=== PATIENT | female | born 1965 | race Caucasian/White ===

== ENCOUNTER 2021-03-20 07:52 | Outpatient (REF) | payer BC, SELFPAY ==
[2021-03-20 08:17] LABS: MANUAL DIFF FLAG NO
[2021-03-20 08:24] LABS: Basophils Percent Auto 0.7 % (0-2); Hematocrit 38.5 % (37-47); Imm Gran Abs Auto 0.01 X10*3/uL (0.00-0.03); Imm Gran Pct Auto 0.3 % (0.0-0.4); Lymphocytes Percent Auto 33.9 % (20-40); Mean Corpuscular HGB Conc 33.8 g/dl (31.0-35.0); Mean Corpuscular Hemoglobin 31.3 pg (27.0-33.0); Mean Corpuscular Volume 92.8 fL (80-98); Mean Platelet Volume 12.4 fL (9.4-12.3); Monocytes Absolute Auto 0.3 X10*3/uL (0.1-1.2); Monocytes Percent Auto 11.4 % (2-11); Neutrophils Absolute Auto 1.6 X10*3/uL (2.0-8.3); Neutrophils Percent Auto 52.7 % (45-73); Platelet Count 105 X10*3/uL (160-400); Red Blood Count 4.15 X10*6/uL (4.20-5.50); Red Cell Distribution Width 11.8 % (11.0-16.0)
[2021-03-20 08:44] LABS: Alanine Aminotransferase 32 U/L (0-31); Albumin Level 4.3 g/dL (3.5-5.0); Alkaline Phosphatase 86 U/L (39-117); Anion Gap 11 (12-20); Aspartate Amino Transferase 24 U/L (5-31); Bilirubin Total 0.9 mg/dL (0.0-1.0); Blood Urea Nitrogen 20 mg/dL (9-16); Calcium 8.6 mg/dL (8.4-10.2); Carbon Dioxide 31 mmol/L (22-29); Chloride 106 mmol/L (96-108); Cholesterol 158 mg/dL; Estimated Glomerular Filt Rate > 60; Glucose Fasting 102 mg/dL (60-99); HDL Cholesterol 50 mg/dL; LDL Cholesterol Calculated 94 mg/dl; Potassium 4.5 mmol/L (3.3-5.1); Sodium 143 mmol/L (135-145); Total Protein 6.5 g/dL (6.5-8.0); Triglycerides 71 mg/dL
[2021-03-20 09:04] LABS: TSH reflex Free T4 1.38 uIU/mL (0.32-4.0); Vitamin D 25-OH Total 40.3 ng/mL (>30)
== END 2021-03-20 07:53 | disposition home or self-care (01) ==
LOC: HO.LAB 07:52
PROVIDERS: PCP Internal Medicine; Visit Provider Internal Medicine
DX: E78.00 Pure hypercholesterolemia, unspecified (principal); K21.9 Gastro-esophageal reflux disease without esophagitis; K31.84 Gastroparesis; E55.9 Vitamin D deficiency, unspecified
CPT/HCPCS: 36415; 80053; 80061; 82306; 84443; 85025

== ENCOUNTER 2021-06-04 07:19 | Outpatient (REF) | payer BC, SELFPAY ==
--- NOTE | ~2021-06-04 | XR_ITS ---
EXAMINATION: XR CHEST CLINICAL INFORMATION: Cough COMPARISON: Previous chest x-ray most recent February 2020 and chest CTA July 2019 TECHNIQUE: 2 views of the chest were obtained. FINDINGS: The heart does not appear enlarged. There is abnormal contour to the aortic arch. This is similar to previous exams. Hilar and mediastinal contours are otherwise unremarkable. The lungs are clear. There is no pleural effusion or pneumothorax. Bony structures are unremarkable. XR/XR chest 2V IMPRESSION: No evidence for acute disease in the chest. Abnormal contour of the aortic arch similar to previous exams.
== END 2021-06-04 07:20 | disposition home or self-care (01) ==
LOC: HO.XRAY 07:19
PROVIDERS: Visit Provider Internal Medicine
DX: M77.12 Lateral epicondylitis, left elbow (principal); R05 Cough
CPT/HCPCS: 20550; 71046; J1100

== ENCOUNTER → 2021-10-22 14:45 | Outpatient (BNVA) | payer BC, SELFPAY | PROVIDERS: PCP Internal Medicine; Visit Provider Orthopaedic Surgery ==

== ENCOUNTER → 2021-11-12 14:55 | Outpatient (BNVA) | payer BC, SELFPAY | PROVIDERS: PCP Internal Medicine; Visit Provider Orthopaedic Surgery | DX: M79.632 Pain in left forearm (principal); M77.12 Lateral epicondylitis, left elbow; M25.522 Pain in left elbow | CPT/HCPCS: 20551; J1100 ==

== ENCOUNTER 2021-12-19 06:42 | Outpatient (REF) | payer BC, OTHER, SELFPAY ==
--- NOTE | ~2021-12-19 | XR_ITS ---
EXAMINATION: XR ABDOMEN KUB CLINICAL INDICATION: Abdominal pain COMPARISON: Renal ultrasound 04/29/2017 TECHNIQUE: AP view of the abdomen. FINDINGS: Moderate stool burden. No bowel obstruction. Cluster of calcifications project over the region of the right kidney measuring up to 1 cm. Mild scoliotic curvature in the spine. XR/XR KUB IMPRESSION: Moderate stool burden. Clustered calcifications project over the region of the right kidney, these could represent renal calculi versus bowel contents.
[2021-12-19 08:28] LABS: Alanine Aminotransferase 20 U/L (0-31); Albumin Level 4.5 g/dL (3.5-5.0); Alkaline Phosphatase 79 U/L (39-117); Anion Gap 12 (12-20); Aspartate Amino Transferase 25 U/L (5-31); Bilirubin Total 1.3 mg/dL (0.0-1.0); Blood Urea Nitrogen 26 mg/dL (9-16); Calcium 9.5 mg/dL (8.4-10.2); Carbon Dioxide 32 mmol/L (22-29); Chloride 103 mmol/L (96-108); Cholesterol 169 mg/dL; Estimated Glomerular Filt Rate > 60; Glucose Fasting 89 mg/dL (60-99); HDL Cholesterol 44 mg/dL; LDL Cholesterol Calculated 103 mg/dl; Potassium 4.7 mmol/L (3.3-5.1); Sodium 142 mmol/L (135-145); Total Protein 7.2 g/dL (6.5-8.0); Triglycerides 110 mg/dL
== END 2021-12-19 06:43 | disposition home or self-care (01) ==
LOC: HO.LAB 06:42
PROVIDERS: PCP Internal Medicine; Visit Provider Internal Medicine
DX: R10.9 Unspecified abdominal pain (principal); E78.00 Pure hypercholesterolemia, unspecified
CPT/HCPCS: 36415; 74018; 80053; 80061

== ENCOUNTER 2022-05-09 07:12 | Outpatient (REF) | payer BC, SELFPAY ==
[2022-05-09 08:00] LABS: Alanine Aminotransferase 24 U/L (0-31); Albumin Level 4.5 g/dL (3.5-5.0); Alkaline Phosphatase 63 U/L (39-117); Anion Gap 10 (12-20); Aspartate Amino Transferase 27 U/L (5-31); Bilirubin Total 1.5 mg/dL (0.0-1.0); Blood Urea Nitrogen 25 mg/dL (9-16); Calcium 9.2 mg/dL (8.4-10.2); Carbon Dioxide 30 mmol/L (22-29); Chloride 105 mmol/L (96-108); Cholesterol 175 mg/dL; Estimated Glomerular Filt Rate > 60; Glucose Fasting 94 mg/dL (60-99); HDL Cholesterol 57 mg/dL; LDL Cholesterol Calculated 101 mg/dl; Potassium 4.6 mmol/L (3.3-5.1); Sodium 140 mmol/L (135-145); Total Protein 6.8 g/dL (6.5-8.0); Triglycerides 86 mg/dL
== END 2022-05-09 07:13 | disposition home or self-care (01) ==
LOC: HO.LAB 07:12
PROVIDERS: PCP Internal Medicine; Visit Provider Internal Medicine
DX: R10.9 Unspecified abdominal pain (principal); E78.00 Pure hypercholesterolemia, unspecified
CPT/HCPCS: 36415; 80048; 80053; 80061

== ENCOUNTER 2022-05-26 13:19 | Outpatient (REF) | payer BC, SELFPAY ==
--- NOTE | ~2022-05-26 | XR_ITS ---
EXAMINATION: XR LUMBOSACRAL SPINE CLINICAL INFORMATION: Low back pain COMPARISON: Previous lumbar spine MRI most recent September 2019 TECHNIQUE: Three views of the lumbosacral spine. FINDINGS: There is curvature of the lumbar spine to the right. Bone alignment is otherwise normal. There is multilevel degenerative spondylosis and degenerative disc disease from L1-L2 through L3-L4. There is lower lumbar spine facet arthritis. There is atherosclerotic disease. XR/XR lumbar spine 2-3V IMPRESSION: Scoliosis and degenerative changes.
[2022-05-26 14:01] LABS: MANUAL DIFF FLAG NO
[2022-05-26 14:45] LABS: Basophils Percent Auto 0.4 % (0-2); Eosinophils Percent Auto 0.2 % (0-4); Hematocrit 37.9 % (37.0-47.0); Hemoglobin 12.9 g/dl (12.0-16.0); Imm Gran Abs Auto 0.01 X10*3/uL (0.00-0.03); Imm Gran Pct Auto 0.2 % (0.0-0.4); Lymphocytes Absolute Auto 1.5 X10*3/uL (1.2-4.9); Lymphocytes Percent Auto 29.2 % (20-40); Mean Corpuscular Hemoglobin 32.9 pg (27.0-33.0); Mean Corpuscular Volume 96.7 fL (80.0-98.0); Mean Platelet Volume 12.7 fL (9.4-12.3); Monocytes Absolute Auto 0.3 X10*3/uL (0.1-1.2); Monocytes Percent Auto 6.4 % (2-11); Neutrophils Absolute Auto 3.2 x10*3/uL (2.0-8.3); Neutrophils Percent Auto 63.6 % (45-73); Platelet Count 133 X10*3/uL (160-400); Red Blood Count 3.92 X10*6/uL (4.20-5.50); Red Cell Distribution Width 11.5 % (11.0-16.0)
== END 2022-05-26 13:20 | disposition home or self-care (01) ==
LOC: HO.XRAY 13:19
PROVIDERS: PCP Internal Medicine; Visit Provider Internal Medicine
DX: M54.50 Low back pain, unspecified (principal); R53.83 Other fatigue
CPT/HCPCS: 36415; 72100; 85025

== ENCOUNTER 2022-06-12 06:12 | Outpatient (REF) | payer BC, SELFPAY ==
--- NOTE | ~2022-06-12 | XR_ITS ---
EXAMINATION: XR THORACIC SPINE CLINICAL INFORMATION: Dorsalgia COMPARISON: Chest x-ray of 06/04/2021, selected images of the chest CT of 07/31/2019, thoracic spine x-ray of 07/15/2019 TECHNIQUE: 3 views of the thoracic spine were obtained. FINDINGS: Vertebral body heights and alignment are maintained. Intervertebral disc spaces are preserved. No suspicious lytic or blastic osseous lesions are seen. Posterior ribs appear intact. Ectasia of the thoracic aortic arch is redemonstrated. Diffuse aortic calcifications. Cardiomediastinal silhouette is stable with normal cardiac size. Visualized lungs are unremarkable. XR/XR thoracic spine 3V IMPRESSION: No evidence of acute compression fracture or suspicious osseous lesion in the thoracic spine. No significant degenerative changes are noted.
[2022-06-12 08:15] LABS: Glucose Random 91 mg/dL (60-115)
== END 2022-06-12 06:13 | disposition home or self-care (01) ==
LOC: HO.XRAY 06:12
PROVIDERS: PCP Internal Medicine; Visit Provider Internal Medicine
DX: M54.89 Other dorsalgia (principal); R25.1 Tremor, unspecified
CPT/HCPCS: 36415; 72072; 82947

== ENCOUNTER → 2022-08-20 13:36 | Outpatient (BNVA) | payer BC, SELFPAY | PROVIDERS: PCP Internal Medicine; Visit Provider Nurse Practitioner Family | DX: R53.83 Other fatigue (principal); R40.0 Somnolence | CPT/HCPCS: 99202 ==

== ENCOUNTER → 2022-09-17 15:28 | Outpatient (REF) | payer BC, SELFPAY | LOC: HO.SL 15:28 | PROVIDERS: PCP Internal Medicine; Visit Provider Nurse Practitioner Family | DX: G47.10 Hypersomnia, unspecified (principal); R06.81 Apnea, not elsewhere classified; R06.83 Snoring; R40.0 Somnolence; R53.83 Other fatigue | CPT/HCPCS: 95806 ==

== ENCOUNTER 2022-11-12 06:01 | Outpatient (REF) | payer BC, SELFPAY ==
[2022-11-12 08:35] LABS: Alanine Aminotransferase 22 U/L (0-31); Albumin Level 4.4 g/dL (3.5-5.0); Alkaline Phosphatase 67 U/L (39-117); Anion Gap 12 (12-20); Aspartate Amino Transferase 21 U/L (5-31); Bilirubin Total 1.3 mg/dL (0.0-1.0); Blood Urea Nitrogen 26 mg/dL (9-16); Calcium 8.9 mg/dL (8.4-10.2); Carbon Dioxide 30 mmol/L (22-29); Chloride 106 mmol/L (96-108); Cholesterol 170 mg/dL; Estimated Glomerular Filt Rate > 60; Glucose Fasting 87 mg/dL (60-99); HDL Cholesterol 50 mg/dL; LDL Cholesterol Calculated 98 mg/dl; Potassium 4.8 mmol/L (3.3-5.1); Sodium 143 mmol/L (135-145); Total Protein 6.5 g/dL (6.5-8.0); Triglycerides 111 mg/dL
== END 2022-11-12 06:02 | disposition home or self-care (01) ==
LOC: HO.LAB 06:01
PROVIDERS: PCP Internal Medicine; Visit Provider Internal Medicine
DX: E78.00 Pure hypercholesterolemia, unspecified (principal)
CPT/HCPCS: 80053; 80061

== ENCOUNTER 2023-01-12 15:05 | Outpatient (REF) | payer BC, SELFPAY ==
--- NOTE | ~2023-01-12 | XR_ITS ---
EXAMINATION: XR WRIST, RIGHT CLINICAL INFORMATION: Pain COMPARISON: None TECHNIQUE: PA, lateral, and oblique views of the right wrist. FINDINGS: Bone alignment is normal. No acute fracture or dislocation. Old ulnar styloid fracture versus accessory ossification center. Mild arthritis at the first DETENTION joint. Normal soft tissues. XR/XR wrist RT min 3V IMPRESSION: Old ulnar styloid fracture versus accessory ossification center. Mild arthritis at the first DETENTION joint.
== END 2023-01-12 15:06 | disposition home or self-care (01) ==
LOC: HO.HOSX 15:05
PROVIDERS: PCP Internal Medicine; Visit Provider Orthopaedic Surgery
DX: M25.531 Pain in right wrist (principal)
CPT/HCPCS: 73110

== ENCOUNTER → 2023-02-10 08:35 | Outpatient (BNVA) | payer BC, SELFPAY | PROVIDERS: PCP Internal Medicine; Visit Provider Orthopaedic Surgery | DX: Z13.89 Encounter for screening for other disorder (principal) ==

== ENCOUNTER 2023-03-13 07:00 | Outpatient (REF) | payer BC, SELFPAY ==
[2023-03-13 07:14] LABS: MANUAL DIFF FLAG NO
[2023-03-13 07:57] LABS: Basophils Percent Auto 0.5 % (0-2); Hematocrit 37.3 % (37.0-47.0); Hemoglobin 13.1 g/dl (12.0-16.0); Imm Gran Abs Auto 0.01 X10*3/uL (0.00-0.03); Imm Gran Pct Auto 0.3 % (0.0-0.4); Lymphocytes Absolute Auto 1.2 X10*3/uL (1.2-4.9); Lymphocytes Percent Auto 31.1 % (20-40); Mean Corpuscular HGB Conc 35.1 g/dl (31.0-35.0); Mean Corpuscular Hemoglobin 32.3 pg (27.0-33.0); Mean Corpuscular Volume 92.1 fL (80.0-98.0); Mean Platelet Volume 11.8 fL (9.4-12.3); Monocytes Absolute Auto 0.3 X10*3/uL (0.1-1.2); Monocytes Percent Auto 7.4 % (2-11); Neutrophils Absolute Auto 2.3 x10*3/uL (2.0-8.3); Neutrophils Percent Auto 60.7 % (45-73); Platelet Count 123 X10*3/uL (160-400); Red Blood Count 4.05 X10*6/uL (4.20-5.50); Red Cell Distribution Width 10.9 % (11.0-16.0); White Blood Count 3.8 X10*3/uL (4.8-10.8)
[2023-03-13 08:09] LABS: Alanine Aminotransferase 23 U/L (0-31); Albumin Level 4.4 g/dL (3.5-5.0); Alkaline Phosphatase 65 U/L (39-117); Anion Gap 13 (12-20); Aspartate Amino Transferase 20 U/L (5-31); Bilirubin Total 1.9 mg/dL (0.0-1.0); Blood Urea Nitrogen 21 mg/dL (9-16); Carbon Dioxide 29 mmol/L (22-29); Chloride 106 mmol/L (96-108); Cholesterol 179 mg/dL; Estimated Glomerular Filt Rate > 60; Glucose Fasting 91 mg/dL (60-99); HDL Cholesterol 46 mg/dL; LDL Cholesterol Calculated 110 mg/dl; Potassium 4.3 mmol/L (3.3-5.1); Sodium 144 mmol/L (135-145); Total Protein 6.4 g/dL (6.5-8.0); Triglycerides 118 mg/dL
[2023-03-13 08:28] LABS: TSH reflex Free T4 1.59 uIU/mL (0.32-4.0); Vitamin D 25-OH Total 49.9 ng/mL (>30)
[2023-03-13 08:39] LABS: Appearance Urine Clear; Color Urine Yellow; Glucose Urine UA Negative (Negative); Leukocyte Esterase Urine Negative (Negative); Nitrite Urine Negative (Negative); PH 7.5 (5.0-9.0); Urine Blood Negative (Negative); Urine Ketones Negative (Negative); Urine Protein Negative (Neg-Trace)
== END 2023-03-13 07:01 | disposition home or self-care (01) ==
LOC: HO.LAB 07:00
PROVIDERS: PCP Internal Medicine; Visit Provider Internal Medicine
DX: E78.00 Pure hypercholesterolemia, unspecified (principal); R30.0 Dysuria; I10 Essential (primary) hypertension; E55.9 Vitamin D deficiency, unspecified
CPT/HCPCS: 36415; 80053; 80061; 81003; 82306; 84443; 85025

== ENCOUNTER 2023-09-22 06:00 | Outpatient (REF) | payer BC, SELFPAY ==
[2023-09-22 06:15] LABS: MANUAL DIFF FLAG NO
[2023-09-22 07:02] LABS: Basophils Percent Auto 0.3 % (0-2); Hematocrit 38.2 % (37.0-47.0); Hemoglobin 13.1 g/dl (12.0-16.0); Imm Gran Abs Auto 0.01 X10*3/uL (0.00-0.03); Imm Gran Pct Auto 0.3 % (0.0-0.4); Lymphocytes Percent Auto 31.4 % (20-40); Mean Corpuscular HGB Conc 34.3 g/dl (31.0-35.0); Mean Corpuscular Hemoglobin 31.6 pg (27.0-33.0); Mean Platelet Volume 12.1 fL (9.4-12.3); Monocytes Absolute Auto 0.2 X10*3/uL (0.1-1.2); Monocytes Percent Auto 7.1 % (2-11); Neutrophils Absolute Auto 1.9 x10*3/uL (2.0-8.3); Neutrophils Percent Auto 60.9 % (45-73); Platelet Count 134 X10*3/uL (160-400); Red Blood Count 4.15 X10*6/uL (4.20-5.50); Red Cell Distribution Width 11.1 % (11.0-16.0); White Blood Count 3.1 X10*3/uL (4.8-10.8)
[2023-09-22 07:27] LABS: Alanine Aminotransferase 23 U/L (0-31); Albumin Level 4.1 g/dL (3.5-5.0); Alkaline Phosphatase 69 U/L (39-117); Anion Gap 10 (12-20); Aspartate Amino Transferase 21 U/L (5-31); Bilirubin Total 1.2 mg/dL (0.0-1.0); Blood Urea Nitrogen 23 mg/dL (9-16); Calcium 9.2 mg/dL (8.4-10.2); Carbon Dioxide 29 mmol/L (22-29); Chloride 107 mmol/L (96-108); Cholesterol 192 mg/dL (<200); Estimated Glomerular Filt Rate > 60; Glucose Fasting 94 mg/dL (60-99); HDL Cholesterol 50 mg/dL (>40); LDL Cholesterol Calculated 120 mg/dL (<100); Potassium 4.4 mmol/L (3.3-5.1); Sodium 142 mmol/L (135-145); Total Protein 6.7 g/dL (6.5-8.0); Triglycerides 112 mg/dL (<150)
[2023-09-22 07:43] LABS: TSH reflex Free T4 2.54 uIU/mL (0.32-4.0); Vitamin D 25-OH Total 50.9 ng/mL (>30)
[2023-09-22 08:21] LABS: Appearance Urine Clear; Color Urine Yellow; Glucose Urine UA Negative (Negative); Leukocyte Esterase Urine Negative (Negative); Nitrite Urine Negative (Negative); PH 6.5 (5.0-9.0); Urine Blood Negative (Negative); Urine Ketones Negative (Negative); Urine Protein Negative (Neg-Trace)
== END 2023-09-22 06:01 | disposition home or self-care (01) ==
LOC: HO.LAB 06:00
PROVIDERS: PCP Internal Medicine; Visit Provider Internal Medicine
DX: R30.0 Dysuria (principal); I10 Essential (primary) hypertension; E55.9 Vitamin D deficiency, unspecified; E78.00 Pure hypercholesterolemia, unspecified
CPT/HCPCS: 36415; 80053; 80061; 81003; 82306; 84443; 85025

== ENCOUNTER 2023-09-27 14:33 | Outpatient (AMB) | payer BC, SELFPAY ==
[2023-09-27 14:37] VITALS: BP 130/72; PULSE 80; O2SAT 98; BMI 23.1
--- NOTE | 2023-09-27 14:37 | MHC.PC.OV ---
Vital Signs 09/27/23 14:37 Height 5 ft 6 in Weight 143 lb BMI 23.1 BP 130/72 Blood Pressure Location Lt brachial Position Sitting Pulse 80 Pulse Source Pulse Oximeter Pulse Oximetry (%) 98 Oxygen Delivery Method Room Air Intake Visit Reasons: hyperlipidemia, anxiety Allergies aspirin Allergy (Unknown, Verified 09/27/23 14:54) Unknown citalopram Allergy (Unknown, Verified 09/27/23 14:54) rash citric acid Allergy (Unknown, Verified 09/27/23 14:54) Rash,itching fentanyl Allergy (Unknown, Verified 09/27/23 14:54) Unknown gluten [GLUTEN] Allergy (Unknown, Verified 09/27/23 14:54) STOMACH UPSET morphine [MORPHINE] Allergy (Unknown, Verified 09/27/23 14:54) NAUSEA & VOMITING oxycodone [OXYCODONE] Allergy (Unknown, Verified 09/27/23 14:54) RIBEIRO surgical tape Allergy (Unknown, Uncoded 09/27/23 14:54) Unknown bupropion Adverse Reaction (Intermediate, Uncoded 09/27/23 21:36) Dizziness Medication List - Last Reconciled 09/27/23 by Eliot Irizarry MD atorvastatin 10 mg PO DAILY blood sugar diagnostic (FreeStyle Lite Strips) As directed blood-glucose meter (FreeStyle Lite Meter kit) As directed brexpiprazole (Rexulti) 1 mg PO DAILY 90 days clonazepam 0.5 mg PO QID [domperidone PO] famotidine 40 mg PO BID lancets (FreeStyle Lancets) As directed meloxicam 7.5 mg PO DAILY mupirocin 2% topical BID paroxetine HCl 60 mg (1.5 x 40 mg) PO QAM 90 days sucralfate 1 g PO DAILY Tobacco use date assessed: 03/16/23 Dental Screening Dental Screen Date: 09/27/23 Did you have a dental visit in the last 12 months?: Yes Did you have a dental problem in the last 6 months where you did not have access to dental care?: No Was dental information given to patient?: Patient has dentist HPI hyperlipidemia, anxiety HPI Details Patient comes in today for her follow up visit States that she continues to experience frequent and recurrent coughing and on and off dyspnea, which she states have been going on since she tested positive for COVID a couple of years ago Also relates possible exposure to molds sometime last spring (2022) States that she coughs up minimal whitish to yellowish phlegm at times CXR done back in May 2021 came out normal She saw pulmonary (Dr. Cheli Newman) at [place] for initial consultation back in April 2023 and will continue to follow up with Dr. Bower for continuing work up and management of her respiratory symptoms States that she is scheduled to see ENT in [place], [place] in a couple of weeks on 10/07/2023 for further evaluation of any potential ENT etiology for her recurrent cough, and will need a new referral made out to them as her original referral was to ENT in [place], who she states could not give her an earlier appointment She is also scheduled to see [facility] tomorrow for her right knee issues She was also previously referred to [facility] for a thyroid cyst/nodule seen incidentally on chest CT but was recently advised that they would not see her for this reason (?) Patient denies any headaches or dizziness; denies any fever or sore throat Denies any chest pains No nausea/vomiting, no abdominal pain No change in bowel habits noted Adds that she continues to experience increased anxiety, and that she recently cut back her Paroxetine 40 mg from 1.5 tablets/dose back to just 1 tablet/dose as she has not noticed any improvement of her symptoms on 1.5 tablets/day Had her follow up labs done last week - to discuss her results She would also like to get her flu shot today [facility] Medical History Basal cell carcinoma of right lower leg Musculoskeletal chest pain Anxiety Post traumatic stress disorder (PTSD) Osteopenia Gastroparesis GERD without esophagitis Benign essential tremor Lumbar degenerative disc disease Cervical spinal stenosis Pure hypercholesterolemia Surgical History Hx of colonoscopy (~07/04/14) S/P Mohs surgery for basal cell carcinoma History of umbilical hernia repair History of hysterectomy Family History Father Cancer Mother CVD (cardiovascular disease) Social History Housing: House Alcohol intake: former Patient Tobacco Use Status: Never used Tobacco e-Cigarette/Vaping Use: Never Used Second Hand Smoke Exposure: Yes service: No Current occupational status: employed 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 1. Little interest or pleasure in doing things: not at all 2. Feeling down, depressed, or hopeless: not at all 3. Trouble falling or staying asleep, or sleeping too much: not at all 4. Feeling tired or having little energy: not at all 5. Poor appetite or overeating: not at all 6. Feeling bad about yourself - or that you are a failure or have let yourself or your family down: not at all 7. Trouble concentrating on things, such as reading the newspaper or watching television: not at all 8. Moving or speaking so slowly that other people could have noticed. Or the opposite - being so fidgety or restless that you have been moving around a lot more than usual: not at all 9. Thoughts that you would be better off or of hurting yourself in some way: not at all Total score: 0 Depression Screening Interpretation: Negative Depression Screening Done: Yes [id number] - PHQ-9 Billing: Yes Source: Developed by Drs. Boo Vasquez, Alejandro Cho and colleagues, with an educational annie from [employer] ([place]). Thrive Questionnaire Date Thrive assessed: 03/16/23 AUDIT C Alcohol Use Questionnaire (AUDIT-C) 1. How often do you have a drink containing alcohol?: Never 3. How often do you have six or more drinks on one occasion?: Never Total Score: 0 Score Reviewed/Action Taken: Yes FRANDY-7 AMB Questionnaire FRANDY-7 Date FRANDY - 7 assessed: 03/16/23 Source: Developed by Drs. Boo Vasquez, Alejandro Cho and colleagues, with an educational annie from [employer] ([place]). Review of Systems Const Denies chills, Reports fatigue, Denies fever(s) and Denies headache(s) ENT Denies dysphagia, Denies dizziness, Denies otalgia, Denies headache(s), Denies nasal congestion, Reports neck pain, Denies odynophagia and Denies sore throat Card Denies chest pain, Denies palpitations and Reports dyspnea (on and off, mild) Resp Details: Denies chest congestion, Reports cough (recurrent - coughs up some phlegm at times), Reports dyspnea (on and off, mild) and Denies wheezing GI Denies abdominal pain, Reports bloating, Denies constipation, Denies dysphagia, Denies heartburn, Denies diarrhea, Reports nausea (on and off), Denies odynophagia and Denies vomiting Denies difficulty voiding, Denies nocturia and Denies dysuria Musc Reports back pain (on and off) and Reports neck pain Skin/Breast Denies rash Neuro Denies dizziness and Denies headache(s) Psych Reports anxiety (increased) Endo Reports fatigue and Denies palpitations Aller/Immun Denies wheezing Physical exam (Primary Care) Vital Signs: Last Vital Signs Pulse 80 09/27/23 14:37 BP 130/72 09/27/23 14:37 Pulse Ox 98 09/27/23 14:37 Oxygen Delivery Method Room Air 09/27/23 14:37 BMI result Body Mass Index 23.1 Tobacco/Smoking Status: Tobacco use Status Tobacco use date assessed 03/16/23 09/27/23 14:39 Patient Tobacco Use Status Never used Tobacco 09/27/23 14:39 e-Cigarette/Vaping Use Never Used 09/27/23 14:39 PHQ-9: PHQ-9 Score PHQ-9: Total score 0 09/27/23 14:54 Depression Screening Interpretation: Negative Thrive Assessment: Date of Thrive Assessment Date Thrive assessed 03/16/23 09/27/23 14:39 Const General: no acute distress and alert HENMT Ears: TM's normal bilaterally and EAC's normal Throat: Yes posterior oropharynx normal and Yes tonsils normal (no TP congestion noted) Neck Neck: Yes no lymphadenopathy and Yes supple Resp Auscultation: clear to auscultation bilaterally, no rales and no wheezes Cardio Rate: regular rate Rhythm: regular rhythm Heart sounds: no murmurs GI Palpation (GI): Soft to palpation and nontender Auscultation: normal bowel sounds Back/Spine/Pelvis Cervical Spine: Cervical spine tenderness Thoracic/Lumbar Spine: lumbar spinal tenderness Extrem General: Yes no clubbing, cyanosis or edema Office Procedures Flu Questionnaire Does the patient have a severe egg allergy?: No Does the patient have severe life threatening allergies?: No Does the patient have a fever or illness today?: No Has the patient ever had Guillain-[place] Syndrome?: No Has the patient ever had any past reaction to a flu shot?: No Immunizations flu vacc [id number] 6mos up(PF) 60 mcg(15 mcgx4)/0.5 mL IM syringe Performing Provider: Eliot Iriazrry MD [facility] Administered by: Griselda Barrios CMA on 09/27/23 14:46 Dose Route Admin Location Dispensed Lot Number Expiration Date NDC Cigar Head Perforator 0.5 mL IM Left Deltoid 0.5 mL [id number] 05/21/24 32315-581-53 Synapse VIS Given Date VIS Provided VIS Publication Date 09/27/23 Single Vaccine 21 Eligibility Eligibility Date Funding Source Not [facility] [place] Eligible 09/27/23 Private Results Reviewed Results Reviewed: Laboratory Tests 09/22/23 09/22/23 09/22/23 06:14 06:14 06:15 WBC 3.1 L Hgb 13.1 Hct 38.2 Plt Count 134 L Sodium 142 Potassium 4.4 Creatinine 0.87 Estimated GFR > 60 Fasting Glucose 94 Calcium 9.2 AST 21 ALT 23 Triglycerides 112 Cholesterol 192 LDL Cholesterol, Calc 120 H HDL Cholesterol 50 25-OH Vitamin D Total 50.9 TSH 2.54 Ur Specific [place] 1.020 Urine Protein Negative Urine Glucose (UA) Negative Urine Blood Negative Assessment and Plan Assessment & Plan (1) Pure hypercholesterolemia: Code(s): E78.00 - Pure hypercholesterolemia, unspecified Plan: Results of her labs done last week reviewed and discussed with patient Reinforced low cholesterol diet Continue Atorvastatin 10 mg QD Will recheck her labs and fasting lipids in 6 months for follow-up (2) Gastroparesis: Code(s): K31.84 - Gastroparesis Plan: Reminded again to eat small frequent feedings (as opposed to eating larger meals) to help minimize triggering her abdominal symptoms Follow up with GI (Dr. Alis Leon) as scheduled (3) GERD without esophagitis: Code(s): K21.9 - Gastro-esophageal reflux disease without esophagitis Plan: Dietary restrictions reinforced Continue Carafate tablets 1 gm QID and Famotidine 40 mg BID Follow-up with GI (Dr. Alis Leon) at [facility] as scheduled (4) Recurrent productive cough: Code(s): R05.8 - Other specified cough Plan: States that her recurrent cough has been going on since she contracted COVID a couple of years ago Chest x-rays and work ups done in the past have all came out normal She is now seeing pulmonary (Dr. Bower) at [place] for further evaluation and management of her symptoms She will also be seeing ENT in [place] for evaluation of possible ENT sources of her recurrent coughing (5) Multiple episodes of hypoglycemia: Code(s): E16.2 - Hypoglycemia, unspecified Plan: Is advised again that her gastroparesis may be contributing to her symptoms Was reportedly seen by [facility] for her initial visit a few months ago and has been advised to try checking her blood sugar as much as she can when her symptoms occur to help figure out what is causing these symptoms to recur often Follow up with endocrinology as scheduled (6) Cervical spinal stenosis: Comment: Cervical spine MRI done in October 2019 showed (+) moderate to severe stenosis at C4-C5 and C5-C6 with slight right-sided cord deformity at C5-C6. There is no signal change in the cord at any level. Code(s): M48.02 - Spinal stenosis, cervical region Plan: Patient would like to continue managing her symptoms conservatively Was seen by neurosurgery last year and advised option of cervical diskectomy and fusion but patient decided to hold off - surgery is not urgent since she has NO significant radicular or myelopathic symptoms (7) Lumbar degenerative disc disease: Code(s): M51.36 - Other intervertebral disc degeneration, lumbar region Plan: Reinforced activity and weight lifting restrictions Follow-up with [facility] as scheduled Repeat lumbar spine x-rays done back in May 2022 revealed (+) multilevel degenerative spondylosis and degenerative disc disease from L1-L2 through L3-L4, with (+) lower lumbar spine facet arthritis as well. There is also (+) scoliosis of the lumbar spine to the right side (8) Benign essential tremor: Code(s): G25.0 - Essential tremor Plan: Follow up with Neurology as scheduled (9) Osteopenia: Comment: Repeat BMD done on 08/12/2018 showed a 5.1% decline in her total femur bone density; bone density is otherwise stable compared to her previous BMD in October 2015 Code(s): M85.80 - Other specified disorders of bone density and structure, unspecified site Qualifiers: Osteopenia location: unspecified Qualified Code(s): M85.80 - Other specified disorders of bone density and structure, unspecified site Plan: Continue Calcium and Vitamin-D supplements daily Repeat BMD done in May 2022 at [place] revealed normal BMD in the lumbar spine (T-score of 1.4) and (+) osteopenia in the hips (T-score of -1.8) Patient is encouraged to also exercise regularly to help slow down her bone density decline Will continue to monitor her BMD every 2 years (10) Post traumatic stress disorder (PTSD): Code(s): F43.10 - Post-traumatic stress disorder, unspecified Plan: Continue Paroxetine 40 mg QD and Clonazepam 0.5 mg 1/2 tablet twice a day as needed Was referred to [facility] in the past but patient states that she cannot afford financially to continue with her counseling as she has a co-pay of $40 per session She was started additionally on Bupropion 75 mg BID several months ago but she could not tolerate the Rx (dizziness) She also reportedly did not respond to Paroxetine when it was increased up to 60 mg daily and she ended up cutting herself back to 40 mg QD recently Will try adding Rexulti 1 mg QD Plan Per request, flu vaccine given today Follow up in 6 months Orders: Orders UA CC w/rflx Micro + Cult 6 Months R30.0 - Dysuria Vitamin D 25-OH Total 6 Months E55.9 - Vitamin D deficiency, unspecified Comprehensive [place]. Panel Fast 6 Months E78.00 - Pure hypercholesterolemia, unspecified Lipid Panel 6 Months E78.00 - Pure hypercholesterolemia, unspecified Influenza [id number] Immunization Today Z23 - Encounter for immunization Complete Blood Count Auto Diff 6 Months I10 - Essential (primary) hypertension TSH reflex Free T4 6 Months E78.00 - Pure hypercholesterolemia, unspecified Vitamin B12 and Folate 6 Months E53.8 - Deficiency of other specified B group vitamins Medications: New brexpiprazole (Rexulti) 1 mg PO DAILY 90 tabs 1RF 90 days Coding Level of Care Code Est Pt Level 4 (34852) Diagnoses Pure hypercholesterolemia E78.00 Gastroparesis K31.84 GERD without esophagitis K21.9 Recurrent productive cough R05.8 Multiple episodes of hypoglycemia E16.2 Cervical spinal stenosis M48.02 Lumbar degenerative disc disease M51.36 Benign essential tremor G25.0 Osteopenia, unspecified location M85.80 Osteopenia location: unspecified Post traumatic stress disorder (PTSD) F43.10
== END 2023-09-27 15:15 | disposition home or self-care (01) ==
PROVIDERS: PCP Internal Medicine; Visit Provider Internal Medicine
DX: Z23 Encounter for immunization (principal)
CPT/HCPCS: 90471; 90686; 99214

== ENCOUNTER 2023-11-10 09:50 | Outpatient (REF) | payer BC, SELFPAY ==
--- NOTE | ~2023-11-10 | US_ITS ---
EXAMINATION: US PELVIS CLINICAL INFORMATION: Pelvic pain. COMPARISON: 04/29/2017, 12/17/2006 TECHNIQUE: Ultrasound of the pelvis is performed using both transabdominal and transvaginal transducers. Transvaginal imaging is performed due to inadequate visualization transabdominally. FINDINGS: Uterus: The uterus has been surgically removed. Adnexa: Bilateral ovaries are not visualized transabdominally or transvaginally. These were last visualized in 2006, not seen on 2016. No free fluid. US/US pelvic and transvaginal IMPRESSION: Status post hysterectomy. Nonvisualization of bilateral ovaries. Previous surgical record should be obtained to confirm what patient believes was previous hysterectomy without oophorectomies. If surgical report is not obtained, follow-up should be done to specifically address presence or absence of ovaries.
== END 2023-11-10 09:51 | disposition home or self-care (01) ==
LOC: HO.HMGCX 09:50
PROVIDERS: PCP Internal Medicine; Visit Provider Internal Medicine
DX: R10.2 Pelvic and perineal pain (principal)
CPT/HCPCS: 76830; 76856

== ENCOUNTER 2023-11-17 12:06 | Emergency (ER) | payer BC, SELFPAY ==
--- NOTE | ~2023-11-17 | CT_ITS ---
EXAMINATION: CT ABDOMEN AND PELVIS WITH CONTRAST CLINICAL INFORMATION: Left lower quadrant/left groin pain. History of hysterectomy but patient believes ovaries were not removed COMPARISON: 11/10/2023 pelvic ultrasound TECHNIQUE: Multidetector volumetric images were obtained from the superior aspect of the liver through the pubic symphysis following administration 85 mL of Omnipaque 350 intravenous contrast. Sagittal and coronal reformatted images were obtained on the technologist's workstation. Oral contrast: No This CT examination was performed using dose optimization techniques as appropriate, variously including the following: *Automated exposure control *Adjustment of mA and/or kV according to patient size (this includes techniques or standardized protocols for targeted exams where dose is matched to indication/reason for exam; i.e. extremities or head) *Use of iterative reconstruction technique DLP: mGy-cm FINDINGS: PERFECT BIND MACHINE OPERATOR: Degenerative changes and minimal thoracolumbar scoliosis. Nonspecific bowel pattern. LUNG BASES: Minor atelectasis. Nonenlarged heart. No pericardial effusion. LIVER, GALLBLADDER, AND BILIARY TREE: The liver is normal in size, shape, and attenuation. Hepatic hypodensities, largest in the left lobe measuring 2.0 cm with Hounsfield units consistent with cyst.No biliary ductal dilatation is present. The gallbladder is unremarkable with no evidence of radiopaque gallstones, gallbladder wall thickening, or obvious pericholecystic inflammatory changes. PANCREAS: Unremarkable. SPLEEN: Unremarkable. ADRENAL GLANDS: Unremarkable. KIDNEYS AND URETERS: The kidneys are normal in size, shape, and attenuation. No hydronephrosis or hydroureter. 1.4 cm right upper pole calcification with adjacent 9 mm cyst. 2.5 cm right lower pole renal cyst. No perinephric stranding. BLADDER: Under distended, likely accounting for wall thickening. GASTROINTESTINAL TRACT: Under distended stomach. Mildly prominent but nonthickened small bowel loops without obstruction. Appendix not identified. Moderately severe fecal retention. ABDOMINAL WALL: No significant hernia is appreciated. LYMPH NODES: Normal. VASCULAR: At the thoracoabdominal junction, calcified aorta measures 3 cm. No infrarenal abdominal aortic aneurysm. Unremarkable inferior vena cava. Patent portal system. PELVIC VISCERA: Status post hysterectomy. No definite recognizable ovaries. Phleboliths. OSSEOUS STRUCTURES: Unremarkable. Dextroscoliosis and degenerative changes. Couple benign-appearing right iliac sclerotic foci. Likely small left femoral head bone islands. CT/CT abdomen pelvis w IV con IMPRESSION: No significant abnormality. Unable to confirm presence of bilateral ovaries in patient with previous hysterectomy. Right renal calcification and cysts. 3 cm calcified thoracoabdominal aorta. Fleischner guidelines were followed.
--- NOTE | 2023-11-17 12:31 | ED_ITS ---
HPI - Abdominal Pain General Chief Complaint: Abdominal Pain Stated Complaint: Lower abd pain traveling to lower back Time Seen by Provider: 11/17/23 15:55 History of Present Illness HPI narrative: The patient is a 58-year-old female who is generally in good health. She has had history of hysterectomy. She does not know if she has had an oophorectomy. She comes to the emergency room because she has had pain in her left lower abdomen or groin for a month. Pain is worse mostly with movements. She has seen her doctor about this pain and she had an outpatient pelvic ultrasound. This was nondiagnostic. She has had a hysterectomy but it is uncertain as to whether her ovaries were removed as well. Ovaries were not visualized on the ultrasound. No definite fever, sweats, chills. Related Data Home Medications Medication Instructions Recorded Confirmed sucralfate 1 gram tablet 1 g PO DAILY 12/17/20 09/27/23 mupirocin 2 % topical ointment topical BID 08/20/22 09/27/23 clonazepam 0.5 mg tablet 0.5 mg PO QID 10/01/22 09/27/23 famotidine 40 mg tablet 40 mg PO BID 02/10/23 09/27/23 meloxicam 7.5 mg tablet 7.5 mg PO DAILY 02/10/23 09/27/23 domperidone PO 03/16/23 09/27/23 Previous Rx's Medication Instructions Recorded blood sugar diagnostic (FreeStyle #50 ea 06/17/22 Lite Strips) blood-glucose meter (FreeStyle #1 ea 06/17/22 Lite Meter kit) lancets 28 gauge (FreeStyle #100 ea 06/17/22 Lancets) atorvastatin 10 mg tablet 10 mg PO DAILY #90 tabs 10/23/23 paroxetine HCl 40 mg tablet 60 mg (1.5 x 40 mg) PO QAM 90 days 10/25/23 #135 tabs quetiapine 50 mg tablet,extended 50 mg PO BEDTIME 30 days #30 tabs 10/29/23 release 24 hr quetiapine 50 mg tablet,extended 50 mg PO BEDTIME #30 tabs 11/01/23 release 24 hr Allergies Allergy/AdvReac Type Severity Reaction Status Date / Time aspirin Allergy Unknown Unknown Verified 09/27/23 14:54 citalopram Allergy Unknown rash Verified 09/27/23 14:54 citric acid Allergy Unknown Rash,itchin Verified 09/27/23 14:54 g fentanyl Allergy Unknown Unknown Verified 09/27/23 14:54 gluten [GLUTEN] Allergy Unknown STOMACH Verified 09/27/23 14:54 UPSET morphine [MORPHINE] Allergy Unknown NAUSEA & Verified 09/27/23 14:54 VOMITING oxycodone [OXYCODONE] Allergy Unknown RIBEIRO Verified 09/27/23 14:54 surgical tape Allergy Unknown Unknown Uncoded 09/27/23 14:54 bupropion AdvReac Intermediate Dizziness Uncoded 09/27/23 21:36 Review of Systems Review of Systems Yes all other systems are reviewed and are negative PMFSH Past Medical History Medical History Basal cell carcinoma of right lower leg Musculoskeletal chest pain Anxiety Post traumatic stress disorder (PTSD) Osteopenia Gastroparesis GERD without esophagitis Benign essential tremor Lumbar degenerative disc disease Cervical spinal stenosis Pure hypercholesterolemia Surgical History Hx of colonoscopy (~07/04/14) S/P Mohs surgery for basal cell carcinoma History of umbilical hernia repair History of hysterectomy Family History Family History Father Cancer Mother CVD (cardiovascular disease) Social History Social History Housing: House Alcohol intake: former Patient Tobacco Use Status: Never used Tobacco Smoked in Last 30 Days: No e-Cigarette/Vaping Use: Never Used Second Hand Smoke Exposure: Yes Use of substances other than those prescribed or required for medical reasons: No Advance Directives: No Advance Directives Information Provided: No service: No Current occupational status: employed 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 The patient did not appear toxic. HENMT Head: Yes normal to inspection Mouth: Normal oral and palatal mucosa present Eyes General: appearance normal, both eyes and all related structures Alignment and Position: alignment normal Periorbital: periorbital findings normal Eyelids: Yes eyelids normal Conjunctivae: conjunctivae normal Neck Neck: Yes normal visual inspection and Yes no lymphadenopathy Resp Effort & Inspection: normal respiratory effort Auscultation: clear to auscultation bilaterally Cardio Other: The patient has regular rate and rhythm no murmur GI Other: There is some left lower quadrant tenderness with quite deep palpation and quite low down. The abdomen is otherwise soft and benign. Back/Spine/Pelvis Other: No CVA percussion tenderness Skin Other: Skin is pale and dry Neuro Other: Patient is awake, alert, pleasant, cooperative. Mental status is appropriate. Moving all 4 extremities symmetrically. Grossly neurologically intact. Extrem Other: No peripheral edema. No calf swelling or tenderness. I can but the left hip through a good range of motion. No apparent discomfort. Course Course Course Narrative: RME: 58yo F w/PMHx anxiety, GERD, gastroparesis, HLD, PTSD, s/p hysterectomy (still has ovaries) c/o left lower abdominal pain radiating to left low back x1 month, worsening. +acid reflux, denies N/V/D, dysuria, hematuria Had Pelvic US on 11/10/23 for same pain ordered by PCP & ovaries were not visualized Labs, UA ordered Full HPI, ROS and PE to be performed by primary ED provider. Medical Decision Making Medical Decision Making [facility] Narrative: The patient is a 58-year-old woman who comes to the emergency room for evaluation of left lower abdominal or pelvic or left groin pain. Pain is been going on for about a month. She seems to be most bothered by the pain with movement and exercise. She had an outpatient pelvic ultrasound to evaluate this pain. She reports a history of a hysterectomy in 2014. She is concerned because the ultrasound she had 1 week ago was not able to visualize her ovaries. The patient believes that she did not have an oophorectomy when she had her hysterectomy. She is also concerned that the pain might be some kind of an infection. Labs and urine testing today are unremarkable. A CT scan of the abdomen and pelvis did not show any acute findings. Additionally the CT scan does not show any identifiable ovarian tissue raising the question whether the patient had an oophorectomy at the time that she had her hysterectomy. I explained to the patient that since her ovaries could not be seen on ultrasound or CT scan, and since her hysterectomy was done at age 49, and also since she describes having symptoms of menopause almost immediately after having her hysterectomy, I explained that I had a fairly high suspicion that she might have had an oophorectomy at the time of her hysterectomy. She may pursue this by obtaining the operative report her speaking to her transit planning director. With regard to her left groin pain I think this is a musculoskeletal pain. She may wish to pursue physical therapy. Lab Data 11/17/23 12:46 11/17/23 12:46 Labs: Lab Results 11/17/23 11/17/23 Range/Units 12:46 12:52 WBC 4.5 L (4.8-10.8) X10*3/uL RBC 4.20 (4.20-5.50) X10*6/uL Hgb 13.3 (12.0-16.0) g/dl Hct 39.0 (37.0-47.0) % MCV 92.9 (80.0-98.0) fL MCH 31.7 (27.0-33.0) pg MCHC 34.1 (31.0-35.0) g/dl RDW 11.3 (11.0-16.0) % Plt Count 133 L (160-400) X10*3/uL MPV 11.6 (9.4-12.3) fL Immature Gran % (Auto) 0.2 (0.0-0.4) % Neut % (Auto) 69.5 (45-73) % Lymph % (Auto) 24.8 (20-40) % [place] % (Auto) 5.3 (2-11) % Eos % (Auto) 0.0 (0-4) % Baso % (Auto) 0.2 (0-2) % Lymph # (Auto) 1.1 L (1.2-4.9) X10*3/uL [place] # (Auto) 0.2 (0.1-1.2) X10*3/uL Eos # (Auto) 0.0 (0.0-0.4) X10*3/uL Baso # (Auto) 0.0 (0.0-0.2) X10*3/uL Abs Immat Gran (auto) 0.01 (0.00-0.03) X10*3/uL Absolute Neuts (auto) 3.1 (2.0-8.3) x10*3/uL Absolute Nucleated RBC 0.000 (0.0-0.012) X10*3/uL Nucleated RBC % (auto) 0.0 (0.0-0.2) /100WBC Sodium 142 (135-145) mmol/L Potassium 4.6 (3.3-5.1) mmol/L Chloride 107 (96-108) mmol/L Carbon Dioxide 29 (22-29) mmol/L Anion Gap 11 L (12-20) BUN 20 H (9-16) mg/dL Creatinine 0.83 (0.5-1.4) mg/dL Estim Creat Clear Calc 67.4 Estimated GFR > 60 Random Glucose 95 (60-115) mg/dL Calcium 9.2 (8.4-10.2) mg/dL Magnesium 2.0 (1.6-2.6) mg/dL Total Bilirubin 1.2 H (0.0-1.0) mg/dL Direct Bilirubin 0.3 (0.0-0.5) mg/dL AST 21 (5-31) U/L ALT 22 (0-31) U/L Alkaline Phosphatase 69 (39-117) U/L Total Protein 6.8 (6.5-8.0) g/dL Albumin 4.4 (3.5-5.0) g/dL Lipase 55 (8-78) U/L Urine Color Yellow Urine Appearance Clear Urine pH 6.5 (5.0-9.0) Ur Specific [place] 1.020 (1.005-1.025) Urine Protein Negative (Neg-Trace) mg/dL Urine Glucose (UA) Negative (Negative) mg/dL Urine Ketones Negative (Negative) mg/dL Urine Blood Negative (Negative) Urine Nitrite Negative (Negative) Ur Leukocyte Esterase Negative (Negative) Medications Administered Discontinued Medications Generic Name Dose Route Start Last Admin Trade Name Freq PRN Reason Stop Dose Admin Acetaminophen 975 mg 11/17/23 16:27 11/17/23 16:42 Acetaminophen 325 Mg Tablet PO 11/17/23 16:28 975 mg ONCE ONE Administration Iohexol 100 ml 11/17/23 16:35 11/17/23 16:36 Iohexol 350 Mg/Ml 100 Ml Infus..Btl IV 11/17/23 16:36 85 ml ONCE ONE Administration Discharge Plan Discharge Clinical Impression: Left groin pain Patient Disposition: Home, Self-Care Additional Instructions: Your blood testing, urine testing, and your CT scan are all very reassuring. There is no sign of any infection or any dangerous process at work. Additionally the CT scan did not show any identifiable ovarian tissue. This raises the question of whether you possibly had your ovaries removed at the time that you had your uterus removed. You might want your regular doctor to get the operative report of your surgery or you could speak with the transit planning director. I think that your pain is probably a musculoskeletal orthopedic pain. This may be some kind of tendinitis or arthritic kind of pain. I would recommend contacting your regular doctor for evaluation by a physical therapist. Return to the emergency room if significantly worse. Prescriptions: No Action (DME) blood-glucose meter [FreeStyle Lite Meter] Kit See Rx Instructions .Route Qty: 1 0RF Rx Instructions: As directed (DME) FreeStyle Lite Strips Strip See Rx Instructions .ROUTE .MEDSUPPLY Qty: 50 0RF Rx Instructions: As directed (DME) lancets [FreeStyle Lancets] 28 gauge misc See Rx Instructions .ROUTE .MEDSUPPLY Qty: 100 0RF Rx Instructions: As directed atorvastatin 10 mg tablet 10 mg PO DAILY Qty: 90 3RF paroxetine HCl 40 mg tablet 60 mg PO QAM 90 Days Qty: 135 1RF quetiapine 50 mg tablet extended release 24 hr 50 mg PO BEDTIME 30 Days Qty: 30 1RF quetiapine 50 mg tablet extended release 24 hr 50 mg PO BEDTIME Qty: 30 0RF sucralfate 1 gram tablet 1 g PO DAILY clonazepam 0.5 mg tablet 0.5 mg PO QID domperidone 10 mg tablet PO mupirocin 2 % ointment topical BID famotidine 40 mg tablet 40 mg PO BID meloxicam 7.5 mg tablet 7.5 mg PO DAILY Referrals: Eliot Irizarry MD [Primary Care Provider] - (Left groin pain)
[2023-11-17 12:32] VITALS: BP 103/59; PULSE 88; RESP 18; TEMP 36.6; O2SAT 100; BMI 23.0
[2023-11-17 12:52] LABS: MANUAL DIFF FLAG NO
[2023-11-17 12:54] LABS: Basophils Percent Auto 0.2 % (0-2); Hemoglobin 13.3 g/dl (12.0-16.0); Imm Gran Abs Auto 0.01 X10*3/uL (0.00-0.03); Imm Gran Pct Auto 0.2 % (0.0-0.4); Lymphocytes Absolute Auto 1.1 X10*3/uL (1.2-4.9); Lymphocytes Percent Auto 24.8 % (20-40); Mean Corpuscular HGB Conc 34.1 g/dl (31.0-35.0); Mean Corpuscular Hemoglobin 31.7 pg (27.0-33.0); Mean Corpuscular Volume 92.9 fL (80.0-98.0); Mean Platelet Volume 11.6 fL (9.4-12.3); Monocytes Absolute Auto 0.2 X10*3/uL (0.1-1.2); Monocytes Percent Auto 5.3 % (2-11); Neutrophils Absolute Auto 3.1 x10*3/uL (2.0-8.3); Neutrophils Percent Auto 69.5 % (45-73); Platelet Count 133 X10*3/uL (160-400); Red Cell Distribution Width 11.3 % (11.0-16.0); White Blood Count 4.5 X10*3/uL (4.8-10.8)
[2023-11-17 13:02] LABS: Appearance Urine Clear; Color Urine Yellow; Glucose Urine UA Negative (Negative); Leukocyte Esterase Urine Negative (Negative); Nitrite Urine Negative (Negative); PH 6.5 (5.0-9.0); Urine Blood Negative (Negative); Urine Ketones Negative (Negative); Urine Protein Negative (Neg-Trace)
[2023-11-17 13:21] LABS: Alanine Aminotransferase 22 U/L (0-31); Albumin Level 4.4 g/dL (3.5-5.0); Alkaline Phosphatase 69 U/L (39-117); Anion Gap 11 (12-20); Aspartate Amino Transferase 21 U/L (5-31); Bilirubin Direct 0.3 mg/dL (0.0-0.5); Bilirubin Total 1.2 mg/dL (0.0-1.0); Blood Urea Nitrogen 20 mg/dL (9-16); Calcium 9.2 mg/dL (8.4-10.2); Carbon Dioxide 29 mmol/L (22-29); Chloride 107 mmol/L (96-108); Creatinine Clr Calc Pharmacy 67.4; Estimated Glomerular Filt Rate > 60; Glucose Random 95 mg/dL (60-115); Lipase 55 U/L (8-78); Potassium 4.6 mmol/L (3.3-5.1); Sodium 142 mmol/L (135-145); Total Protein 6.8 g/dL (6.5-8.0)
--- NOTE | 2023-11-17 14:56 | PC.NURSE ---
Alert and oriented reports left sided ovary/ abdominal/ flank pain with started x 1 month ago. Reports recently had an ultrasound d/t pain and states test was not performed correctly so she is not sure of the results. denies pain with urination, states goes to the gym three days a week and pain is worse when she tries to get off the elliptical.
[2023-11-17 16:24] VITALS: BP 144/81; PULSE 78; RESP 16; TEMP 36.7; O2SAT 99
[2023-11-17] MEDS: iohexoL 350 MG/ML 100 ML INFUS..BTL IV (16:36)
[2023-11-17] MEDS: Acetaminophen 325 MG TABLET 975 MG PO (16:42)
== END 2023-11-17 17:57 | disposition home or self-care (01) ==
PROVIDERS: Physician Assistant; Emergency Provider Emergency Medicine; PCP Internal Medicine
DX: R10.32 Left lower quadrant pain (principal); Z90.710 Acquired absence of both cervix and uterus
CPT/HCPCS: 36415; 74177; 80048; 80076; 81003; 83690; 83735; 85025; 99284; Q9967

== ENCOUNTER 2024-03-18 07:04 | Outpatient (REF) | payer BC, SELFPAY ==
[2024-03-18 07:22] LABS: MANUAL DIFF FLAG NO
[2024-03-18 07:55] LABS: Basophils Percent Auto 0.3 % (0-2); Hematocrit 38.8 % (37.0-47.0); Hemoglobin 13.5 g/dl (12.0-16.0); Imm Gran Abs Auto 0.01 X10*3/uL (0.00-0.03); Imm Gran Pct Auto 0.3 % (0.0-0.4); Lymphocytes Absolute Auto 1.1 X10*3/uL (1.2-4.9); Lymphocytes Percent Auto 30.3 % (20-40); Mean Corpuscular HGB Conc 34.8 g/dl (31.0-35.0); Mean Corpuscular Hemoglobin 31.6 pg (27.0-33.0); Mean Corpuscular Volume 90.9 fL (80.0-98.0); Monocytes Absolute Auto 0.3 X10*3/uL (0.1-1.2); Monocytes Percent Auto 8.3 % (2-11); Neutrophils Absolute Auto 2.2 x10*3/uL (2.0-8.3); Neutrophils Percent Auto 60.8 % (45-73); Platelet Count 140 X10*3/uL (160-400); Red Blood Count 4.27 X10*6/uL (4.20-5.50); Red Cell Distribution Width 11.6 % (11.0-16.0); White Blood Count 3.6 X10*3/uL (4.8-10.8)
[2024-03-18 08:36] LABS: Alanine Aminotransferase 27 U/L (0-31); Albumin Level 4.2 g/dL (3.5-5.0); Alkaline Phosphatase 77 U/L (39-117); Anion Gap 11 (12-20); Aspartate Amino Transferase 22 U/L (5-31); Bilirubin Total 1.3 mg/dL (0.0-1.0); Blood Urea Nitrogen 22 mg/dL (9-16); Calcium 9.4 mg/dL (8.4-10.2); Carbon Dioxide 33 mmol/L (22-29); Chloride 104 mmol/L (96-108); Cholesterol 176 mg/dL (<200); Estimated Glomerular Filt Rate 59; Glucose Fasting 105 mg/dL (60-99); HDL Cholesterol 45 mg/dL (>40); LDL Cholesterol Calculated 113 mg/dL (<100); Potassium 5.1 mmol/L (3.3-5.1); Sodium 143 mmol/L (135-145); Triglycerides 92 mg/dL (<150)
[2024-03-18 08:40] LABS: Appearance Urine Clear; Color Urine Yellow; Glucose Urine UA Negative (Negative); Leukocyte Esterase Urine Negative (Negative); Nitrite Urine Negative (Negative); PH 6.5 (5.0-9.0); Specific Gravity - Urine 1.015 (1.005-1.025); Urine Blood Negative (Negative); Urine Ketones Negative (Negative); Urine Protein Negative (Neg-Trace)
[2024-03-18 08:55] LABS: Folate 10.1 ng/mL (> or = 4.0); Vitamin B12 1473 pg/mL (200-900); Vitamin D 25-OH Total 53.6 ng/mL (>30)
== END 2024-03-18 07:05 | disposition home or self-care (01) ==
LOC: HO.LAB 07:04
PROVIDERS: PCP Internal Medicine; Visit Provider Internal Medicine
DX: I10 Essential (primary) hypertension (principal); E78.00 Pure hypercholesterolemia, unspecified; R30.0 Dysuria; E55.9 Vitamin D deficiency, unspecified; E53.8 Deficiency of other specified B group vitamins
CPT/HCPCS: 36415; 80053; 80061; 81003; 82306; 82607; 82746; 84443; 85025

== ENCOUNTER 2024-03-28 15:33 | Outpatient (AMB) | payer BC, SELFPAY ==
[2024-03-28 15:34] VITALS: BP 98/64; PULSE 78; O2SAT 98; BMI 23.7
--- NOTE | 2024-03-28 15:34 | MHC.PC.OV ---
Vital Signs 03/28/24 15:34 Height 5 ft 6 in Weight 147 lb BMI 23.7 BP 98/64 Blood Pressure Location Lt brachial Position Sitting Pulse 78 Pulse Source Pulse Oximeter Pulse Oximetry (%) 98 Oxygen Delivery Method Room Air Intake Visit Reasons: 6mth f/u Intake Note: Patient is here to follow up on 6 months Patient Admitting Clerk Required: No Allergies aspirin Allergy (Unknown, Verified 03/28/24 16:08) Unknown citalopram Allergy (Unknown, Verified 03/28/24 16:08) rash citric acid Allergy (Unknown, Verified 03/28/24 16:08) Rash,itching fentanyl Allergy (Unknown, Verified 03/28/24 16:08) Unknown gluten [GLUTEN] Allergy (Unknown, Verified 03/28/24 16:08) STOMACH UPSET morphine [MORPHINE] Allergy (Unknown, Verified 03/28/24 16:08) NAUSEA & VOMITING oxycodone [OXYCODONE] Allergy (Unknown, Verified 03/28/24 16:08) RIBEIRO surgical tape Allergy (Unknown, Uncoded 03/28/24 16:08) Unknown bupropion Adverse Reaction (Intermediate, Uncoded 03/28/24 16:08) Dizziness Medication List - Last Reconciled 03/29/24 by Eliot Irizarry MD atorvastatin 10 mg PO DAILY blood sugar diagnostic (FreeStyle Lite Strips) As directed blood-glucose meter (FreeStyle Lite Meter kit) As directed clonazepam 0.5 mg PO QID [domperidone 10 mg PO TIDWMEAL] lancets (FreeStyle Lancets) As directed mupirocin 2% topical BID paroxetine HCl 60 mg (1.5 x 40 mg) PO QAM 90 days quetiapine ER 50 mg PO BEDTIME 30 days sucralfate 1 g PO QID Tobacco use date assessed: 03/28/24 Dental Screening Dental Screen Date: 03/28/24 HPI 6mth f/u HPI Details Patient comes in today for her follow up visit States that she still has a recurrent cough (thinks this started when she tested positive for COVID about 3 years ago) and she still coughs up minimal whitish to yellowish phlegm at times CXR done back in May 2021 came out normal She has been following up with pulmonary at [place] and pulmonary work ups have all been negative She was also seen by ENT a few months ago - flexible laryngoscopy done revealed some inflammatory changes and she was advised to try Famotidine for a couple of months - patient feels that this did not help She was also seen by neurology a few weeks ago for her head tremors and was advised that these are essential tremors She was started on long-acting Propranolol 60 mg QD, which patient feels does not help She has a follow up appointment with neurology coming up in a couple of weeks Patient denies any fever, sore throat, headaches or dizziness Denies any chest pains, no SOB No nausea/vomiting, no abdominal pain No change in bowel habits noted Had her follow up labs done a couple of weeks ago - to discuss her results [facility] Medical History Basal cell carcinoma of right lower leg Musculoskeletal chest pain Anxiety Post traumatic stress disorder (PTSD) Osteopenia Gastroparesis GERD without esophagitis Benign essential tremor Lumbar degenerative disc disease Cervical spinal stenosis Pure hypercholesterolemia Surgical History Hx of colonoscopy (~07/04/14) S/P Mohs surgery for basal cell carcinoma History of umbilical hernia repair History of hysterectomy Family History Father Cancer Mother CVD (cardiovascular disease) Social History Housing: House Alcohol intake: former Patient Tobacco Use Status: Never used Tobacco e-Cigarette/Vaping Use: Never Used Second Hand Smoke Exposure: Yes service: No Current occupational status: employed 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 1. Little interest or pleasure in doing things: not at all 2. Feeling down, depressed, or hopeless: not at all 3. Trouble falling or staying asleep, or sleeping too much: not at all 4. Feeling tired or having little energy: not at all 5. Poor appetite or overeating: not at all 6. Feeling bad about yourself - or that you are a failure or have let yourself or your family down: not at all 7. Trouble concentrating on things, such as reading the newspaper or watching television: not at all 8. Moving or speaking so slowly that other people could have noticed. Or the opposite - being so fidgety or restless that you have been moving around a lot more than usual: not at all 9. Thoughts that you would be better off or of hurting yourself in some way: not at all Total score: 0 Depression Screening Interpretation: Negative Depression Screening Done: Yes 54378 - PHQ-9 Billing: Yes Source: Developed by Drs. Boo Vasquez, Mariajose Gross, Alejandro Villanueva and colleagues, with an educational annie from [employer]. Thrive Questionnaire Date Thrive assessed: 03/28/24 I am a: Patient What is your living situation today?: I have a steady place to live Within the past 12 months, did the food you bought not last and you didn't have the money to get more?: Never true Within the past 12 months, did you worry whether your food would run out before you got money to buy more?: Never true Do you have trouble paying for medicines?: No Do you have trouble getting transportation to medical appointments?: No Do you have trouble paying your heating and electricity bill?: No Do you have trouble taking care of your child, family member or friend?: No Do you have trouble with day-to-day activities such as bathing, preparing meals, shopping, managing finances, etc.?: No Are you currently unemployed and looking for a job?: No Are you interested in more education?: No Please select the resources that you would like help with: None Currently or been in a relationship where the following occur: no concerns reported THRIVE Score: 0 AUDIT C Alcohol Use Questionnaire (AUDIT-C) 1. How often do you have a drink containing alcohol?: Never 3. How often do you have six or more drinks on one occasion?: Never Total Score: 0 Score Reviewed/Action Taken: Yes FRANDY-7 AMB Questionnaire FRANDY-7 Date FRADNY - 7 assessed: 03/28/24 Feeling nervous, anxious, or on edge: 0 = Not at all Not being able to stop or control worryin = Not at all Worrying too much about different things: 0 = Not at all Trouble relaxin = Not at all Being so restless that it is hard to sit still: 0 = Not at all Becoming easily annoyed or irritable: 0 = Not at all Feeling afraid as if something awful might happen: 0 = Not at all Total FRANDY-7 score (0-4 normal; 5-9 mild; 10-14 moderate; 15-21 severe): 0 Source: Developed by Drs. Boo Vasquez, Mariajose Gross, Alejandro Villanueva and colleagues, with an educational annie from [employer]. FRANDY-7 Assessment Billing FRANDY-7 Assessment Tool: FRANDY-7 Assessment 97506 Review of Systems Const Denies chills, Denies fatigue, Denies fever(s) and Denies headache(s) ENT Denies dysphagia, Denies dizziness, Denies otalgia, Denies headache(s), Reports neck pain, Denies odynophagia and Denies sore throat Card Denies chest pain, Denies palpitations and Denies dyspnea Resp Details: Denies chest congestion, Reports cough (recurrent - coughs up some phlegm at times), Denies dyspnea and Denies wheezing GI Denies abdominal pain, Denies constipation, Denies dysphagia, Denies heartburn, Denies diarrhea, Denies nausea, Denies odynophagia and Denies vomiting Denies difficulty voiding, Denies nocturia, Denies dysuria and Denies urinary urgency Musc Reports back pain (on and off) and Reports neck pain Skin/Breast Denies rash Neuro Denies dizziness, Denies headache(s) and Reports tremor(s) (head tremors) Psych Reports anxiety (increased) Endo Denies fatigue and Denies palpitations Aller/Immun Denies wheezing Physical exam (Primary Care) Vital Signs: Last Vital Signs Pulse 78 03/28/24 15:34 BP 98/64 03/28/24 15:34 Pulse Ox 98 03/28/24 15:34 Oxygen Delivery Method Room Air 03/28/24 15:34 BMI result Body Mass Index 23.7 Tobacco/Smoking Status: Tobacco use Status Tobacco use date assessed 03/28/24 03/28/24 15:35 Patient Tobacco Use Status Never used Tobacco 03/28/24 15:35 e-Cigarette/Vaping Use Never Used 03/28/24 15:35 PHQ-9: PHQ-9 Score PHQ-9: Total score 0 03/28/24 19:47 Depression Screening Interpretation: Negative Thrive Assessment: Date of Thrive Assessment Date Thrive assessed 03/28/24 03/28/24 15:35 Currently or been in a relationship where the following occur: no concerns reported Const General: no acute distress and alert HENMT Ears: TM's normal bilaterally and EAC's normal Throat: Yes posterior oropharynx normal and Yes tonsils normal (no TP congestion noted) Neck Neck: Yes no lymphadenopathy and Yes supple Thyroid: Thyroid normal Resp Auscultation: clear to auscultation bilaterally, no rales and no wheezes Cardio Rate: regular rate Rhythm: regular rhythm Heart sounds: no murmurs GI Palpation (GI): Soft to palpation and nontender Auscultation: normal bowel sounds Back/Spine/Pelvis Cervical Spine: Cervical spine tenderness Thoracic/Lumbar Spine: lumbar spinal tenderness Skin Rashes: no rashes Neuro Other: (+) mild tremor involving the head Extrem General: Yes no clubbing, cyanosis or edema Results Reviewed Results Reviewed: Laboratory Tests 03/18/24 03/18/24 07:20 08:00 WBC 3.6 L Hgb 13.5 Hct 38.8 Plt Count 140 L Sodium 143 Potassium 5.1 Creatinine 0.97 Estimated GFR 59 Fasting Glucose 105 H Calcium 9.4 Total Bilirubin 1.3 H AST 22 ALT 27 Triglycerides 92 Cholesterol 176 LDL Cholesterol, Calc 113 H HDL Cholesterol 45 Vitamin B12 1473 H 25-OH Vitamin D Total 53.6 TSH 1.50 Ur Specific Payne 1.015 Urine Protein Negative Urine Glucose (UA) Negative Urine Blood Negative Urine Nitrite Negative Ur Leukocyte Esterase Negative Assessment and Plan Assessment & Plan (1) Pure hypercholesterolemia: Code(s): E78.00 - Pure hypercholesterolemia, unspecified Plan: Results of her labs done a couple of weeks ago reviewed and discussed with patient Reinforced low cholesterol diet Continue Atorvastatin 10 mg QD Will recheck her labs and fasting lipids in 6 months for follow-up (2) Gastroparesis: Code(s): K31.84 - Gastroparesis Plan: Patient is reminded again to eat small frequent feedings (as opposed to eating larger meals) to minimize triggering her abdominal symptoms Follow up with GI as scheduled (3) GERD without esophagitis: Code(s): K21.9 - Gastro-esophageal reflux disease without esophagitis Plan: Dietary restrictions reinforced Continue Carafate tablets 1 gm QID and Famotidine 40 mg BID Follow-up with GI (Dr. Alis Leon) at [facility] as scheduled (4) Recurrent productive cough: Code(s): R05.8 - Other specified cough Plan: States that her recurrent cough has been going on since she contracted COVID a few years ago Chest x-rays and pulmonary work ups done in the past have all came out normal She is now following up with pulmonary (Dr. Bower) at [place] for this issue She was also seen and worked up by ENT in [place], [place] and advised that her findings are consistent with acid reflux and has been advised to stay on Famotidine, which she feels has not helped so far (5) Multiple episodes of hypoglycemia: Code(s): E16.2 - Hypoglycemia, unspecified Plan: Patient is again advised that her gastroparesis may be contributing to her symptoms Was reportedly seen by [facility] for her initial visit a few months ago and has been advised to try checking her blood sugar as much as she can when her symptoms occur to help figure out what is causing these symptoms to recur often Follow up with endocrinology as scheduled (6) Cervical spinal stenosis: Comment: Cervical spine MRI done in October 2019 showed (+) moderate to severe stenosis at C4-C5 and C5-C6 with slight right-sided cord deformity at C5-C6. There is no signal change in the cord at any level. Code(s): M48.02 - Spinal stenosis, cervical region Plan: Patient prefers to continue managing her symptoms conservatively Was seen by neurosurgery last year and advised option of cervical diskectomy and fusion but patient decided to hold off - surgery is not urgent since she has NO significant radicular or myelopathic symptoms (7) Lumbar degenerative disc disease: Code(s): M51.36 - Other intervertebral disc degeneration, lumbar region Plan: Reinforced activity and weight lifting restrictions Repeat lumbar spine x-rays done back in May 2022 revealed (+) multilevel degenerative spondylosis and degenerative disc disease from L1-L2 through L3-L4, with (+) lower lumbar spine facet arthritis as well. There is also (+) scoliosis of the lumbar spine to the right side Follow-up with [facility] as scheduled (8) Benign essential tremor: Code(s): G25.0 - Essential tremor Plan: Continue Propranolol LA 60 mg QD Follow up with Neurology as scheduled (9) Osteopenia: Comment: Repeat BMD done on 08/12/2018 showed a 5.1% decline in her total femur bone density; bone density is otherwise stable compared to her previous BMD in October 2015 Code(s): M85.80 - Other specified disorders of bone density and structure, unspecified site Qualifiers: Osteopenia location: unspecified Qualified Code(s): M85.80 - Other specified disorders of bone density and structure, unspecified site Plan: Continue Calcium and Vitamin-D supplements daily Repeat BMD done in May 2022 at [place] revealed normal BMD in the lumbar spine (T-score of 1.4) and (+) osteopenia in the hips (T-score of -1.8) Patient is encouraged to also exercise regularly to help slow down her bone density decline Will continue to monitor her BMD every 2 years (10) Post traumatic stress disorder (PTSD): Code(s): F43.10 - Post-traumatic stress disorder, unspecified Plan: Continue Paroxetine 40 mg QD, Clonazepam 0.5 mg 1/2 tablet twice a day as needed and Quetiapine ER 50 mg Q HS Was referred to [facility] in the past but patient states that she cannot afford financially to continue with her counseling as she has a co-pay of $40 per session She was started additionally on Bupropion 75 mg BID several months ago but she could not tolerate the Rx (dizziness) She also reportedly did not respond to Paroxetine when it was increased up to 60 mg daily and she ended up cutting herself back to 40 mg QD recently We also tried adding Rexulti 1 mg QD but this was denied by insurance and we ended up starting her on Quetiapine ER instead Plan Follow up in 6 months Orders: Orders Complete Blood Count Auto Diff 6 Months D64.9 - Anemia, unspecified Lipid Panel 6 Months E78.00 - Pure hypercholesterolemia, unspecified TSH reflex Free T4 6 Months E78.00 - Pure hypercholesterolemia, unspecified Comprehensive [place]. Panel Fast 6 Months E78.00 - Pure hypercholesterolemia, unspecified UA CC w/rflx Micro + Cult 6 Months R30.0 - Dysuria Vitamin B12 and Folate 6 Months E53.8 - Deficiency of other specified B group vitamins Vitamin D 25-OH Total 6 Months E55.9 - Vitamin D deficiency, unspecified Medications: Changed From [domperidone] PO To [domperidone] 10 mg PO TIDWMEAL From sucralfate 1 g PO DAILY To sucralfate 1 g PO QID Discontinued quetiapine ER Discontinued Reason: Duplicate 50 mg PO BEDTIME 30 tabs 0RF Coding Level of Care Code Est Pt Level 4 (01578) Diagnoses Pure hypercholesterolemia E78.00 Gastroparesis K31.84 GERD without esophagitis K21.9 Recurrent productive cough R05.8 Multiple episodes of hypoglycemia E16.2 Cervical spinal stenosis M48.02 Lumbar degenerative disc disease M51.36 Benign essential tremor G25.0 Osteopenia, unspecified location M85.80 Osteopenia location: unspecified Post traumatic stress disorder (PTSD) F43.10 Additional Codes FRANDY-7 Assessment Billing - FRANDY-7 Assessment Tool: FRANDY-7 Assessment [id number] ([id number])
== END 2024-03-28 16:34 | disposition home or self-care (01) ==
PROVIDERS: PCP Internal Medicine; Visit Provider Internal Medicine
DX: E78.00 Pure hypercholesterolemia, unspecified (principal); K31.84 Gastroparesis; K21.9 Gastro-esophageal reflux disease without esophagitis; R05.8 Other specified cough; E16.2 Hypoglycemia, unspecified; M48.02 Spinal stenosis, cervical region; M51.36 Other intervertebral disc degeneration, lumbar region; G25.0 Essential tremor; M85.80 Other specified disorders of bone density and structure, unspecified site; F43.10 Post-traumatic stress disorder, unspecified
CPT/HCPCS: 99214

== ENCOUNTER 2024-09-22 06:04 | Outpatient (REF) | payer BC, SELFPAY ==
[2024-09-22 06:17] LABS: MANUAL DIFF FLAG NO
[2024-09-22 07:16] LABS: Basophils Percent Auto 0.5 % (0-2); Hematocrit 37.9 % (37.0-47.0); Hemoglobin 13.4 g/dl (12.0-16.0); Imm Gran Abs Auto 0.01 X10*3/uL (0.00-0.03); Imm Gran Pct Auto 0.3 % (0.0-0.4); Lymphocytes Percent Auto 25.3 % (20-40); Mean Corpuscular HGB Conc 35.4 g/dl (31.0-35.0); Mean Corpuscular Hemoglobin 32.1 pg (27.0-33.0); Mean Corpuscular Volume 90.7 fL (80.0-98.0); Mean Platelet Volume 12.2 fL (9.4-12.3); Monocytes Absolute Auto 0.3 X10*3/uL (0.1-1.2); Neutrophils Absolute Auto 2.6 x10*3/uL (2.0-8.3); Neutrophils Percent Auto 66.9 % (45-73); Platelet Count 134 X10*3/uL (160-400); Red Blood Count 4.18 X10*6/uL (4.20-5.50); Red Cell Distribution Width 11.7 % (11.0-16.0); White Blood Count 3.9 X10*3/uL (4.8-10.8)
[2024-09-22 07:20] LABS: Appearance Urine Clear; Color Urine Yellow; Glucose Urine UA Negative (Negative); Leukocyte Esterase Urine Trace (Negative); Nitrite Urine Negative (Negative); PH 8.5 (5.0-9.0); UMIC TRIGGER UACC YES; Urine Blood Negative (Negative); Urine Ketones Negative (Negative); Urine Protein Negative (Neg-Trace)
[2024-09-22 07:26] LABS: Bacteria Urine None Seen (None Seen); Hyaline Casts Urine 0-2 /LPF (0-2); RBC Urine 0-2 /HPF (0-2); Squamous Epithelial Cell Urine 0-2 /HPF (0-2); WBC Urine 0-5 /HPF (0-5)
[2024-09-22 07:46] LABS: Alanine Aminotransferase 25 U/L (0-31); Albumin Level 4.3 g/dL (3.5-5.0); Anion Gap 14 (12-20); Aspartate Amino Transferase 28 U/L (5-31); Bilirubin Total 1.5 mg/dL (0.0-1.0); Blood Urea Nitrogen 25 mg/dL (9-16); Carbon Dioxide 27 mmol/L (22-29); Chloride 107 mmol/L (96-108); Cholesterol 187 mg/dL (<200); Estimated Glomerular Filt Rate > 60; Glucose Fasting 100 mg/dL (60-99); HDL Cholesterol 50 mg/dL (>40); LDL Cholesterol Calculated 109 mg/dL (<100); Potassium 4.7 mmol/L (3.3-5.1); Sodium 143 mmol/L (135-145); Total Protein 6.9 g/dL (6.5-8.0); Triglycerides 143 mg/dL (<150)
[2024-09-22 08:04] LABS: Alkaline Phosphatase 78 U/L (39-117)
[2024-09-22 08:12] LABS: TSH reflex Free T4 2.17 uIU/mL (0.32-4.0); Vitamin D 25-OH Total 55.4 ng/mL (>30)
[2024-09-22 08:32] LABS: Folate 12.6 ng/mL (> or = 4.0); Vitamin B12 1196 pg/mL (200-900)
== END 2024-09-22 06:05 | disposition home or self-care (01) ==
LOC: HO.LAB 06:04
PROVIDERS: PCP Internal Medicine; Visit Provider Internal Medicine
DX: E55.9 Vitamin D deficiency, unspecified (principal); D64.9 Anemia, unspecified; E78.00 Pure hypercholesterolemia, unspecified; E53.8 Deficiency of other specified B group vitamins
CPT/HCPCS: 36415; 80053; 80061; 81001; 82306; 82607; 82746; 84443; 85025

== ENCOUNTER 2024-10-02 10:43 | Outpatient (AMB) | payer BC, SELFPAY ==
[2024-10-02 10:51] VITALS: BP 130/82; PULSE 70; O2SAT 97; BMI 23.3
--- NOTE | 2024-10-02 10:51 | MHC.PC.OV ---
Vital Signs 10/02/24 10:51 Height 5 ft 6 in Weight 144 lb 2 oz BMI 23.3 BP 130/82 Blood Pressure Location Lt brachial Position Sitting Pulse 70 Pulse Source Pulse Oximeter Pulse Oximetry (%) 97 Oxygen Delivery Method Room Air Intake Visit Reasons: 6mth f/u Glazier Supervisor Required: No Accompanied by: Self / Same As Patient Allergies aspirin Allergy (Unknown, Verified 10/02/24 11:34) Unknown citalopram Allergy (Unknown, Verified 10/02/24 11:34) rash citric acid Allergy (Unknown, Verified 10/02/24 11:34) Rash,itching fentanyl Allergy (Unknown, Verified 10/02/24 11:34) Unknown gluten [GLUTEN] Allergy (Unknown, Verified 10/02/24 11:34) STOMACH UPSET morphine [MORPHINE] Allergy (Unknown, Verified 10/02/24 11:34) NAUSEA & VOMITING oxycodone [OXYCODONE] Allergy (Unknown, Verified 10/02/24 11:34) RIBEIRO surgical tape Allergy (Unknown, Uncoded 10/02/24 11:34) Unknown bupropion Adverse Reaction (Intermediate, Uncoded 10/02/24 11:34) Dizziness Medication List - Last Reconciled 10/02/24 by Eliot Irizarry MD atorvastatin 10 mg PO DAILY [domperidone 10 mg PO TIDWMEAL] paroxetine HCl 60 mg (1.5 x 40 mg) PO QAM 90 days propranolol ER 60 mg PO DAILY sucralfate 1 g PO QAM Tobacco use date assessed: 10/02/24 Dental Screening Dental Screen Date: 10/02/24 Did you have a dental visit in the last 12 months?: Yes Did you have a dental problem in the last 6 months where you did not have access to dental care?: No Was dental information given to patient?: Patient has dentist HPI 6mth f/u HPI Details Patient comes in today for her follow up visit States that she feels okay She denies any headaches or dizziness Denies any chest pains, no increased SOB No nausea/vomiting, no abdominal pain No change in bowel habits noted States that she is now OFF Clonazepam and has been taking Propranolol ER 60 mg Q AM instead but has not really noticed yet any improvement in her anxiety She has been advised that it may take up to 4 weeks before she can feel the difference / improvement in her symptoms She had her follow up labs done a couple of weeks ago - to discuss her results She would also like to get her flu shot today [facility] Medical History (Updated 10/02/24 @ 12:02 by Eliot Irizarry MD) Basal cell carcinoma of right lower leg Anxiety Post traumatic stress disorder (PTSD) Osteopenia Gastroparesis GERD without esophagitis Benign essential tremor Lumbar degenerative disc disease Cervical spinal stenosis Pure hypercholesterolemia Surgical History Hx of colonoscopy (~07/04/14) S/P Mohs surgery for basal cell carcinoma History of umbilical hernia repair History of hysterectomy Family History Father Cancer Mother CVD (cardiovascular disease) Social History Housing: House Alcohol intake: former Patient Tobacco Use Status: Never used Tobacco e-Cigarette/Vaping Use: Never Used Second Hand Smoke Exposure: Yes service: No Current occupational status: employed 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 1. Little interest or pleasure in doing things: not at all 2. Feeling down, depressed, or hopeless: not at all 3. Trouble falling or staying asleep, or sleeping too much: not at all 4. Feeling tired or having little energy: not at all 5. Poor appetite or overeating: not at all 6. Feeling bad about yourself - or that you are a failure or have let yourself or your family down: not at all 7. Trouble concentrating on things, such as reading the newspaper or watching television: not at all 8. Moving or speaking so slowly that other people could have noticed. Or the opposite - being so fidgety or restless that you have been moving around a lot more than usual: not at all 9. Thoughts that you would be better off or of hurting yourself in some way: not at all Total score: 0 Depression Screening Interpretation: Negative Depression Screening Done: Yes 21658 - PHQ-9 Billing: Yes Source: Developed by Drs. Boo Vasquez, Alejandro Cho and colleagues, with an educational annie from [employer]. Thrive Questionnaire Date Thrive assessed: 10/02/24 I am a: Patient What is your living situation today?: I have a steady place to live Within the past 12 months, did the food you bought not last and you didn't have the money to get more?: Never true Within the past 12 months, did you worry whether your food would run out before you got money to buy more?: Never true Do you have trouble paying for medicines?: No Do you have trouble getting transportation to medical appointments?: No Do you have trouble paying your heating and electricity bill?: No Do you have trouble taking care of your child, family member or friend?: No Do you have trouble with day-to-day activities such as bathing, preparing meals, shopping, managing finances, etc.?: No Are you currently unemployed and looking for a job?: No Are you interested in more education?: No Please select the resources that you would like help with: None Currently or been in a relationship where the following occur: No concerns reported THRIVE Score: 0 AUDIT C Alcohol Use Questionnaire (AUDIT-C) 1. How often do you have a drink containing alcohol?: Never 3. How often do you have six or more drinks on one occasion?: Never Total Score: 0 Score Reviewed/Action Taken: Yes FRANDY-7 AMB Questionnaire FRANDY-7 Date FRANDY - 7 assessed: 10/02/24 Feeling nervous, anxious, or on edge: 0 = Not at all Not being able to stop or control worryin = Not at all Worrying too much about different things: 0 = Not at all Trouble relaxin = Not at all Being so restless that it is hard to sit still: 0 = Not at all Becoming easily annoyed or irritable: 0 = Not at all Feeling afraid as if something awful might happen: 0 = Not at all Total FRANDY-7 score (0-4 normal; 5-9 mild; 10-14 moderate; 15-21 severe): 0 Source: Developed by Drs. Boo Vasquez, Alejandro Cho and colleagues, with an educational annie from [employer]. FRANDY-7 Assessment Billing FRANDY-7 Assessment Tool: FRANDY-7 Assessment 74919 Review of Systems Const Denies chills, Denies fatigue, Denies fever(s) and Denies headache(s) ENT Denies dysphagia, Denies dizziness, Denies otalgia, Denies headache(s), Reports neck pain, Denies odynophagia and Denies sore throat Card Denies chest pain, Denies palpitations and Denies dyspnea Resp Details: Denies chest congestion, Denies cough and Denies dyspnea GI Denies abdominal pain, Denies constipation, Denies dysphagia, Denies heartburn, Denies diarrhea, Denies nausea, Denies odynophagia and Denies vomiting Denies difficulty voiding, Denies nocturia, Denies dysuria and Denies urinary urgency Musc Reports back pain (on and off) and Reports neck pain Skin/Breast Denies rash Neuro Denies dizziness, Denies headache(s) and Reports tremor(s) (head tremors) Psych Reports anxiety and Denies panic attacks Endo Denies fatigue and Denies palpitations Physical exam (Primary Care) Vital Signs: Last Vital Signs Pulse 70 10/02/24 10:51 BP 130/82 10/02/24 10:51 Pulse Ox 97 10/02/24 10:51 Oxygen Delivery Method Room Air 10/02/24 10:51 BMI result Body Mass Index 23.3 Tobacco/Smoking Status: Tobacco use Status Tobacco use date assessed 10/02/24 10/02/24 10:53 Patient Tobacco Use Status Never used Tobacco 10/02/24 10:53 e-Cigarette/Vaping Use Never Used 10/02/24 10:53 PHQ-9: PHQ-9 Score PHQ-9: Total score 0 10/02/24 11:03 Depression Screening Interpretation: Negative Thrive Assessment: Date of Thrive Assessment Date Thrive assessed 10/02/24 10/02/24 10:53 Currently or been in a relationship where the following occur: No concerns reported Const General: no acute distress and alert HENMT Ears: TM's normal bilaterally and EAC's normal Throat: Yes posterior oropharynx normal and Yes tonsils normal (no TP congestion noted) Neck Neck: Yes no lymphadenopathy and Yes supple Thyroid: Thyroid normal Resp Auscultation: clear to auscultation bilaterally, no rales and no wheezes Cardio Rate: regular rate Rhythm: regular rhythm Heart sounds: no murmurs GI Palpation (GI): Soft to palpation and nontender Auscultation: normal bowel sounds General: Yes no CVA tenderness Back/Spine/Pelvis Back: no CVA tenderness Cervical Spine: Cervical spine tenderness Thoracic/Lumbar Spine: lumbar spinal tenderness Skin Rashes: no rashes Neuro Other: (+) mild tremor involving the head Extrem General: Yes no clubbing, cyanosis or edema Office Procedures Flu Questionnaire Does the patient have a severe egg allergy?: No Does the patient have severe life threatening allergies?: No Does the patient have a fever or illness today?: No Has the patient ever had Guillain-Vallejo Syndrome?: No Has the patient ever had any past reaction to a flu shot?: No Immunizations Fluarix Triv 6551-1489 (PF) 45 mcg (15 mcg x 3)/0.5 mL IM syringe Performing Provider: Eliot Irizarry MD Performing Location: [facility] Administered by: SHAKEEL Aburto on 10/02/24 11:04 Dose Route Admin Location Dispensed Lot Number Expiration Date [employer] 0.5 mL IM Left Deltoid 0.5 mL [id number] 05/21/25 [id number] Ship[employer] VIS Given Date VIS Provided VIS Publication Date 10/02/24 Single Vaccine 21 Eligibility Eligibility Date Funding Source Not [facility] Eligible 10/02/24 Private Results Reviewed Results Reviewed: Laboratory Tests 09/22/24 09/22/24 06:14 06:16 WBC 3.9 L Hgb 13.4 Hct 37.9 Plt Count 134 L Sodium 143 Potassium 4.7 Creatinine 0.89 Estimated GFR > 60 Fasting Glucose 100 H Calcium 9.0 AST 28 ALT 25 Triglycerides 143 Cholesterol 187 LDL Cholesterol, Calc 109 H HDL Cholesterol 50 Vitamin B12 1196 H 25-OH Vitamin D Total 55.4 TSH 2.17 Ur Specific [place] 1.020 Urine Protein Negative Urine Glucose (UA) Negative Urine Blood Negative Urine Nitrite Negative Ur Leukocyte Esterase Trace H Coding Level of Care Code Est Pt Level 4 (81773) Diagnoses Pure hypercholesterolemia E78.00 Gastroparesis K31.84 GERD without esophagitis K21.9 Elevated vitamin B12 level R79.89 Cervical spinal stenosis M48.02 Degeneration of intervertebral disc of lumbar region with discogenic back pain M51.360 Disc-related pain type: discogenic back pain only Benign essential tremor G25.0 Osteopenia, unspecified location M85.80 Osteopenia location: unspecified Post traumatic stress disorder (PTSD) F43.10 Additional Codes FRANDY-7 Assessment Billing - FRANDY-7 Assessment Tool: FRANDY-7 Assessment 81736 ([id number]) PHQ-9 - 23475 - PHQ-9 Billing: Yes ([id number]) Assessment & Plan Assessment & Plan (1) Pure hypercholesterolemia: Code(s): E78.00 - Pure hypercholesterolemia, unspecified Category: Medical Plan: Results of her labs done a couple of weeks ago reviewed and discussed with patient Reinforced low cholesterol diet Continue Atorvastatin 10 mg QD Will recheck her labs and fasting lipids in 6 months for follow-up (2) Gastroparesis: Code(s): K31.84 - Gastroparesis Category: Medical Plan: Continue Domperidone (Motilium) 10 mg TID with meals Patient is reminded again to eat small frequent feedings (as opposed to eating larger meals) to minimize triggering her abdominal symptoms Follow up with GI (Dr. Alis Leon) as scheduled (3) GERD without esophagitis: Code(s): K21.9 - Gastro-esophageal reflux disease without esophagitis Category: Medical Plan: Dietary restrictions reinforced Continue Carafate tablets 1 gm Q AM; she also used to take Famotidine 40 mg BID PRN but has not needed this in a while now Follow-up with GI (Dr. Alis Leon) at [facility] as scheduled (4) Elevated vitamin B12 level: Code(s): R79.89 - Other specified abnormal findings of blood chemistry Category: Medical Plan: Have advised patient that her B12 level is still very high although it has decreased from before Patient is NOT taking any Vitamin B12 supplements Will need to continue monitoring this for now and if her B12 level does not trend back to normal at some point or if it goes up further again, may need to start her on some additional work ups to look into this (5) Cervical spinal stenosis: Comment: Cervical spine MRI done in October 2019 showed (+) moderate to severe stenosis at C4-C5 and C5-C6 with slight right-sided cord deformity at C5-C6. There is no signal change in the cord at any level. Code(s): M48.02 - Spinal stenosis, cervical region Category: Medical Plan: Patient prefers to continue managing her symptoms conservatively at this time She was seen by neurosurgery last year and advised option of cervical diskectomy and fusion but patient decided to hold off - surgery is not urgent since she has NO significant radicular or myelopathic symptoms (6) Lumbar degenerative disc disease: Code(s): M51.36 - Other intervertebral disc degeneration, lumbar region Category: Medical Qualifiers: Disc-related pain type: discogenic back pain only Qualified Code(s): M51.360 - Other intervertebral disc degeneration, lumbar region with discogenic back pain only Plan: Reinforced activity and weight lifting restrictions Repeat lumbar spine x-rays done back in May 2022 revealed (+) multilevel degenerative spondylosis and degenerative disc disease from L1-L2 through L3-L4, with (+) lower lumbar spine facet arthritis as well. There is also (+) scoliosis of the lumbar spine to the right side Follow-up with [facility] as scheduled (7) Benign essential tremor: Code(s): G25.0 - Essential tremor Category: Medical Plan: Continue Propranolol ER 60 mg QD Follow up with Neurology as scheduled (8) Osteopenia: Comment: Repeat BMD done on 08/12/2018 showed a 5.1% decline in her total femur bone density; bone density is otherwise stable compared to her previous BMD in October 2015 Code(s): M85.80 - Other specified disorders of bone density and structure, unspecified site Category: Medical Qualifiers: Osteopenia location: unspecified Qualified Code(s): M85.80 - Other specified disorders of bone density and structure, unspecified site Plan: Continue oral Calcium and Vitamin-D supplements daily Repeat BMD done in May 2022 at [facility] revealed normal BMD in the lumbar spine (T-score of 1.4) and (+) osteopenia in the hips (T-score of -1.8) Patient is encouraged to exercise regularly to help slow down her bone density decline Will continue to monitor her BMD every 2 years (9) Post traumatic stress disorder (PTSD): Code(s): F43.10 - Post-traumatic stress disorder, unspecified Category: Medical Plan: Continue Paroxetine 60 mg QD - feels that she is doing okay now on her Rx She used to take Clonazepam 0.5 mg 1/2 tablet twice a day as needed for years and was also on Quetiapine ER 50 mg Q HS more recently but is now OFF both of these Rx She was referred to [facility] in the past but patient states that she cannot afford financially to continue with her counseling as she has a co-pay of $40 per session She was started additionally on Bupropion 75 mg BID several months ago but she could not tolerate the Rx (dizziness) We also tried adding Rexulti 1 mg QD but this was denied by insurance and we ended up starting her on Quetiapine ER instead, which she is no longer taking at present Plan Follow up in 6 months Orders: Orders Influenza [id number] Immunization Today Z23 - Encounter for immunization Complete Blood Count Auto Diff 6 Months D64.9 - Anemia, unspecified Comprehensive [place]. Panel Fast 6 Months E78.00 - Pure hypercholesterolemia, unspecified Vitamin B12 and Folate 6 Months E53.8 - Deficiency of other specified B group vitamins Lipid Panel 6 Months E78.00 - Pure hypercholesterolemia, unspecified
== END 2024-10-02 11:47 | disposition home or self-care (01) ==
PROVIDERS: PCP Internal Medicine; Visit Provider Internal Medicine
DX: E78.00 Pure hypercholesterolemia, unspecified (principal); K31.84 Gastroparesis; K21.9 Gastro-esophageal reflux disease without esophagitis; R79.89 Other specified abnormal findings of blood chemistry; M48.02 Spinal stenosis, cervical region; M51.360 Other intervertebral disc degeneration, lumbar region with discogenic back pain only; G25.0 Essential tremor; M85.80 Other specified disorders of bone density and structure, unspecified site; F43.10 Post-traumatic stress disorder, unspecified; Z23 Encounter for immunization

== ENCOUNTER → 2024-10-02 10:43 | Outpatient (BNVA) | payer BC, SELFPAY | PROVIDERS: PCP Internal Medicine; Visit Provider Internal Medicine | DX: E78.00 Pure hypercholesterolemia, unspecified (principal); K31.84 Gastroparesis; K21.9 Gastro-esophageal reflux disease without esophagitis; R79.89 Other specified abnormal findings of blood chemistry; M48.02 Spinal stenosis, cervical region; M51.360 Other intervertebral disc degeneration, lumbar region with discogenic back pain only; G25.0 Essential tremor; M85.80 Other specified disorders of bone density and structure, unspecified site; F43.10 Post-traumatic stress disorder, unspecified; Z23 Encounter for immunization | CPT/HCPCS: 90471; 90656; 96127 ==

== ENCOUNTER 2025-03-30 06:04 | Outpatient (REF) | payer BC, SELFPAY ==
--- OUTSIDE RECORDS SUMMARY | 2025-03-30 06:07 | XMS_ITS | Clinical Summary ---
Author Organization [address] Address [address] [place] [address] Care Team Providers Care Iron Erector Name Role Phone Eliot Irizarry MD Primary Care Provider [phone] Allergies Active Allergy Reactions Criticality Noted Date Comments Citric Acid Other (See Comments),Unknown Medium 2021 Fentanyl Other (See Comments),Unknown Medium 022 Gluten Unknown 08/10/2024 Morphine Other (See Comments),Unknown Medium 022 Oxycodone Other (See Comments),Unknown Medium 022 Medications atorvastatin (LIPITOR) 10 mg tablet 07/30/2024 Active primidone (MYSOLINE) 50 mg tablet 1 tablet (50 mg total). 08/02/2024 Active paroxetine (PAXIL) 40 mg tablet 1 tablet (40 mg total). 06/08/2024 Active sucralfate (CARAFATE) 1 gram tablet 1 tablet (1 g total). 05/26/2024 Active Active Problems No known active problems Immunizations Name Administration Dates Next Due Influenza, injectable, quadrivalent, preservativ e free 08/27/2020 ZOSTER RECOMBINANT (Shingrix) 10/26/2020, 020 Social History Tobacco Use Types Packs/Day Years Used Date Smoking Tobacco: Never Smokeless Tobacco: Never Tobacco Cessation:Counseling Given: Not Answered Alcohol Use Standard Drinks/Week Comments Never 0 (1 standard drink = 0.6 oz pur e alcohol) Comments Unknown Sex and Gender Information Value Date Recorded Sex Assigned at Not on file Legal Sex Female 11:04 AM EDT Gender Identity Not on file Sexual Orientation Not on file Last Filed Vital Signs Vital Sign Reading Time Taken Comments Blood Pressure 137/88 08/10/2024 3:56 PM EDT Pulse 88 08/10/2024 3:56 PM EDT Temperature 36.7 ??C (98.1 ??F) 08/10/2024 3:56 PM ED T Respiratory Rate 16 08/10/2024 3:56 PM EDT Oxygen Saturation 95% 08/10/2024 3:56 PM EDT Inhaled Oxygen Concentration - - Weight 66.7 kg (147 lb) 08/10/2024 3:56 PM EDT Height 167.6 cm (5' 6 ) 08/10/2024 3:56 PM EDT Body Mass Index 23.73 08/10/2024 3:56 PM EDT Plan of Treatment Health Maintenance Due Date Last Done Comments HIV screening 1976 Hepatitis C screening 1981 Tetanus adult (Td q 10,TDAP once) 1983 Cervical cancer screening 1984 Lipid disorder screening 2003 Colon cancer screening, Colonoscopy 2008 Diabetes screening 2008 Pneumococcal Vaccine (50+ years) (1 of 1 - PCV) 2013 Covid-19 vaccine series ( - season) 2024 Influenza vaccine 07/23/2025 08/27/2020 Breast cancer screening 11/17/2025 11/17/20 23, 11/10/2022, 07/29/2021, Additional history exists RSV Immunization (1 - 1-dose 75+ series) 2038 Shingles vaccine (Shingrix) Completed 10/26/2020, 1 Meningococcal Vaccine Aged Out No ria stanley eligible based on patient's age to complete this topic Pneumococcal Vaccine (2 - 49 years) Aged Out No longer eligible based on patient's age to complete this topic Insurance BS Care Teams Iron Erector Relationship Specialty Start Date End Date Eliot Irizarry MD [address] [place] [address] Dr [place], [place] [id number] PCP - General Internal Medicine 08/10/24
--- OUTSIDE RECORDS SUMMARY | 2025-03-30 06:07 | XMS_ITS | Clinical Summary ---
Author Organization [facility] Address [address] [place] [address] Care Team Providers Care Advanced Practice Registered Nurse Name Role Phone Eliot Irizarry MD Primary Care Provider [phone] Allergies Active Allergy Reactions Criticality Noted Date Comments Citric Acid Other (See Comments) Medium 12/17/2021 Fentanyl Other (See Comments) Medium 12/17/2021 Morphine Other (See Comments) Medium 12/17/2021 Oxycodone Other (See Comments) Medium 12/17/2021 Medications Medication Sig Dispensed Refills Start Date End Date Status atorvastatin (LIPITOR) tablet 10 mg 0 11/03/2021 Active clonazePAM (KlonoPIN) 0.5 MG tablet TAKE 1 TABLET TWICE DAILY AND TAKE 2 TABLETS AT BEDTIME 0 12/26/2021 Active clonazePAM (KlonoPIN) 1 MG tablet Take 1 mg by mouth. 0 12/10/2020 Active fluorouracil (EFUDEX) 5 % cream 0 11/18/2021 Active ipratropium (ATROVENT) 0.03 % nasal spray 0 12/04/2021 Active PARoxetine (PAXIL) 40 MG tablet 0 11/20/2021 Active sucralfate (CARAFATE) 1 g tablet 0 10/02/2021 Active Family History Medical History Relation Name Comments Colon cancer Maternal Grandmother Breast cancer Sister Endometrial cancer Neg Hx Ovarian cancer Neg Hx Relation Name Status Comments Maternal Grandmother Sister Social History Tobacco Use Types Packs/Day Years Used Date Smoking Tobacco: Never Smokeless Tobacco: Never Alcohol Use Standard Drinks/Week Comments Not Currently 0 (1 standard drink = 0.6 oz pur e alcohol) Sex and Gender Information Value Date Recorded Sex Assigned at Not on file Gender Identity Not on file Sexual Orientation Not on file Job Start Date Occupation Industry Not on file Not on file Not on file Last Filed Vital Signs Vital Sign Reading Time Taken Comments Blood Pressure - - Pulse - - Temperature - - Respiratory Rate - - Oxygen Saturation - - Inhaled Oxygen Concentration - - Weight 63 kg (139 lb) 12/30/2021 2:36 PM EST Height 167.6 cm (5' 6 ) 12/30/2021 2:36 PM EST Body Mass Index 22.44 12/30/2021 2:36 PM EST Plan of Treatment Health Maintenance Due Date Last Done Comments Hepatitis C Screening 1963 COVID-19 Vaccine (#1) 03/31/1964 Depression Screening 1975 Preventative Health Evaluation 1981 DTap / Tdap / Td (1 - Tdap) 1982 Cervical Cancer Screening (Pap Smear) 1984 Colon Cancer Screening (Colonoscopy) 2008 Influenza Vaccine (#1) 2024 08/27/2020 Breast Cancer Screening (Mammogram) 11/17/2025 11/17/2023, 11/10/2022, 07/29/2021, Additional history exists RSV Adult > 60+ Yrs or (1 - 1-dose 75+ series) 2038 Shingrix-Zoster Vaccine Completed 10/26/2020, 08/27 Hepatitis B Vaccines Aged Out No long er eligible based on patient's age to complete this topic Pneumococcal Vaccine Aged Out No long er eligible based on patient's age to complete this topic RSV Ped < 20 months Aged Out No longe r eligible based on patient's age to complete this topic Care Teams Advanced Practice Registered Nurse Relationship Specialty Start Date End Date Eliot Irizarry MD [address] [place] [address] [place] [address] PCP - General Internal Medicine 08/21/19
--- OUTSIDE RECORDS SUMMARY | 2025-03-30 06:07 | XMS_ITS ---
Author Name [facility] Organization Unknown History of Medication Use Medication Directions Dispensed Refills Start Date End Date Stat us propranolol (INDERAL LA) 80 MG 24 hr capsule Take 1 capsule (80 mg total) by mouth daily. 11/20/2024 activ e paroxetine (PAXIL) 40 mg tablet 1 tablet (40 mg total). 06/08/2024 active sucralfate (CARAFATE) 1 gram tablet 1 tablet (1 g total). 05/26/2024 act melania propranolol (INDERAL LA) 60 MG 24 hr capsule 80 mg. 02/11/2024 11/17/20 24 aborted meloxicamTake 1 Tabl et (oral) 1 time per day for 10 [id number] time per [id number] 7.5mg 01/21/2023 suspended ipratropium (ATROVENT) 0.03 % nasal spray 12/04/2021 active fluorouracil (EFUDEX) 5 % cream 11/18/2021 active PARoxetine (Paxil) 40 MG tablet Take 40 mg by mouth. 12/10/2020 acti ve DomperidoneTakeNo da te recordedNo form recordedNo frequency recordedNo route recordedNo set duration recordedNo set duration amount recordedactiveNo dosage strength recordedNo dosage strength units of measure recorded active Problems Problem Status Onset Date Problem Type Date of Resolution Source Anxiety disorder, unspecified active ProblemAct [facility] Urinary frequency active EncounterDiagnosisAct [facility] Gastro-esophageal reflux disease without esophagitis active ProblemAct [facility] Dysuria active EncounterDiagnosisAct [facility] Benign head tremor active EncounterDiagnosisAct [facility] Acute sinusitis, unspecified active 2023-12-12 ProblemAct [facility] 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 ProblemAct [facility] Pure hypercholesterolem ia, unspecified active ProblemAct [facility] Post-traumatic stress disorder, unspecified active ProblemAct [facility] Depression active ProblemAct [facility] NE Vaginal pain active EncounterDiagnosisAct [facility] Immunizations Vaccine Date Source Lot Number Status Zoster Vaccine Recombinant (Shingrix) 10/26/2020 [facility] [id number] completed Influenza, Quadrivalent (FLU ARIX, AFLURIA, FLULAVAL, FLUZONE) Preservative Free IM 08/27/2020 [facility] [id number] completed Zoster Vaccine Recombinant (Shingrix) 08/27/2020 [facility] [id number] completed Encounters Encounter Type Encounter Reason Primary Diagnosis Location Date Ambulatory Follow-up Follow-up [employer] 02/28/2025 Ambulatory Follow-up Follow-up [employer] [facility] 12/27/2024 Ambulatory Follow-up Follow-up [employer] 11/08/2024 Ambulatory Follow-up Follow-up [facility] 10/18/2024 Ambulatory Follow-up Follow-up [employer] 09/06/2024 Ambulatory Urinary frequency Urinary frequency [facility] 08/10/2024 Ambulatory Follow-up Follow-up [facility] [employer] [facility] 08/02/2024 Ambulatory Follow-up Follow-up [employer] 06/14/2024 Ambulatory Follow-up Follow-up [employer] 05/31/2024 Ambulatory Follow-up Follow-up [facility] 04/05/2024 Ambulatory [facility] [employer] [place] [facility] 02/09/2024 Ambulatory [facility] 01/27/2023 Ambulatory Unspecified abdo nicol pain [employer] 12/17/2021 Care Team Organization Name Specialty Phone Email Start Date End Da te [facility] 08/10/2024 [facility] 02/09/2024 [facility] 01/05/2024 [facility] Not Found Primary Care 12/12/2023 [facility] 08/26/2023 08/26/2023 [facility] 08/26/2023 [facility] 12/17/2021 12/17/2021 [facility] 12/17/2021
--- OUTSIDE RECORDS SUMMARY | 2025-03-30 06:07 | XMS_ITS | Clinical Summary ---
Author Organization [facility] Address [address] [place] [address] Phone Care Team Providers Care Painter Foreman Name Role Phone Eliot Irizarry MD Primary Care Provider Allergies Active Allergy Reactions Criticality Noted Date Comments Citric Acid Other,Rash,Unknown Medium 12/17/2021 Fentanyl Other,Unknown Medium 12/17/2021 Other Reaction(s): Other (See Comments) Gluten Unknown 05/04/2023 Latex 05/04/2023 Morphine Nausea And Vomiting,Other,Unknown Medium 12/17/2021 Oxycodone Other,Unknown Medium 12/17/2021 Other Reaction(s): Other (See Comments) Medications PARoxetine (PAXIL) 40 mg tablet Take 1 tablet (40 mg total) by mouth. TAKES 60MG 1 Active propranolol LA (INDERAL LA) 60 mg 24 hr capsule 1 capsule (60 mg total). 4 Active sucralfate (Carafate) 100 mg/mL suspension Take 10 mL (1 g total) by mouth 1 (one) time. 4 Active atorvastatin (LIPITOR) 10 mg tablet Take 1 tablet (10 mg total) by mouth at bedtime. 1 Active NON FORMULARY DOMPERIDONE 10 TID Active Encounters Date Type Department Care Team Description 03/01/2025 Telephone Gastroenterology - [address] [facility] [address] [facility] [address] [place] [address] Alis Leon MD from Last 3 Months Surgical History Surgery Date Site/Laterality Comments HYSTERECTOMY 2014 PROCEDURE: HISTORICAL HYSTERECTOMY HERNIA REPAIR 08/2017 PROCEDURE: HISTORICAL HERNIA REPAIR/UMB KNEE ARTHROSCOPY PROCEDURE: W[place] ARTHROSCOPY AID TX SPINE&/FX KNEE W/O FIXJ OTHER SURGICAL HISTORY Left PROCEDURE: HISTORY OTHER; COMMENT: elbow surgery HYSTERECTOMY 2014 PROCEDURE:HYSTERECTOMY Medical History Medical History Date Comments Mixed hyperlipidemia DX:Mixed hy perlipidemia T6 vertebral fracture (CMS/H CC V24, [facility]/HCC V28) 2014 DX:T6 vertebral fracture (HC C); COMMENT: mild, noted on CTA to r/o PE Cancer (CMS/HCC V24, CMS/[facility] V28) DX:Cancer (HCC);COMMENT:SKIN Basal cell carcinoma (BCC) Gastroparesis Cervical cancer (CMS/HCC V24 , [facility] V28) Herniated disc, cervical Family History Medical History Relation Name Comments Colon cancer Maternal Grandmother Breast cancer Sister Endometrial cancer Neg Hx Ovarian cancer Neg Hx Relation Name Status Comments Maternal Grandmother Sister Social History Tobacco Use Types Packs/Day Years Used Date Smoking Tobacco: Never Smokeless Tobacco: Never Alcohol Use Standard Drinks/Week Comments Not Currently 0 (1 standard drink = 0.6 oz pur e alcohol) Interpersonal Safety Answer Date Record ed Physical Abuse 10/12/2024 Verbal Abuse 10/12/2024 Comments No Sex and Gender Information Value Date Recorded Sex Assigned at Female 10/06/2024 12:04 PM EST Legal Sex Female 7:59 AM EST Gender Identity Female 10/06/2024 12:04 PM EST Sexual Orientation Straight 10/06/2024 12 :04 PM EST Obstetrics History Last Filed Vital Signs Vital Sign Reading Time Taken Comments Blood Pressure 124/81 10/12/2024 11:03 AM EST Pulse 76 10/12/2024 11:03 AM EST Temperature 35.8 ??C (96.4 ??F) 10/12/2024 10:[address] Respiratory Rate 16 10/12/2024 11:03 AM EST Oxygen Saturation 100% 10/12/2024 11:03 AM EST Inhaled Oxygen Concentration - - Weight 65.3 kg (144 lb) 10/12/2024 10:05 AM EST Height 167.6 cm (5' 6 ) 10/12/2024 10:05 AM EST Body Mass Index 23.24 10/12/2024 10:05 AM EST Plan of Treatment Upcoming Encounters Date Type Department Care Team (Late st Contact Info) Description 04/24/2025 3:20 PM EDT Office Visit Gastroenterology - [address] [place] [address] [facility] [address] [place] [phone] Alis Leon MD [address] [facility] [address] [place] [address] Health Maintenance Due Date Last Done Comments Cervical Cancer Screening: Pap Smear 1984 Pneumococcal Vaccine: 50+ Years (1 of 1 - PCV) 2013 COVID-19 Vaccine (3 - Pfizer risk series) 05/04/2021 04/06/2021, 03/16/2021 Depression Screening 10/30/2022 HIV Screening 10/30/2022 Hepatitis C Screening 10/30/2022 Social Influencers of Health Screening 10/30/2022 Breast Cancer Screening 11/17/2025 11/17/20 23, 11/10/2022, 07/29/2021, Additional history exists DTaP,Tdap,and Td Vaccines (2 - Td or Tdap) 06/15/2026 06/15/2016 Colorectal Cancer Screening: Colonoscopy 10/12/2034 10/12/2024 RSV Immunization Adult Patients (1 - 1-dose 75+ series) 2038 Zoster Vaccines Completed 10/26/2020, 08/27/2020 Influenza Vaccine Completed 10/02/2024, , 09/05/2021, Additional history exists HIB Vaccines Aged Out No longer eligi ble based on patient's age to complete this topic HPV Vaccines Aged Out No longer eligi ble based on patient's age to complete this topic Hepatitis A Vaccines Aged Out No long er eligible based on patient's age to complete this topic Hepatitis B Vaccines Aged Out No long er eligible based on patient's age to complete this topic IPV Vaccines Aged Out No longer eligi ble based on patient's age to complete this topic MMR Vaccines Aged Out No longer eligi ble based on patient's age to complete this topic Meningococcal ACWY Vaccine Aged Out N o longer eligible based on patient's age to complete this topic Meningococcal B Vaccine Aged Out No l onger eligible based on patient's age to complete this topic Pneumococcal Vaccine: Pediatrics (0 to 5 Years) and At-Risk Patients (6 to 64 Years) Aged Out No longer eligible based on patient's age to complete this topic RSV Immunization Patients Under 20 months Aged Out No longer eligible based on patient's age to complete this topic Varicella Vaccines Aged Out No longer eligible based on patient's age to complete this topic Procedures Procedure Name Priority Date/Time Associated Diagnosis Comments COLONOSCOPY Routine 10/12/2024 10:41 AM EST Abdominal pain, epigastric Special screening for malignant neoplasms, colon MAMMOGRAM SCREENING BILATERAL 3D JT WITH CAD Routine 11/17/2023 10:45 AM EST Encounter for screening mammogram for malignant neoplasm of breast from Last 3 Months or Most Recently Relevant to Health Maintenance Results * COLONOSCOPY Anesthesia - MAC; [facility] ENDOSCOPY (10/12/2024 10:41 AM EST) Anatomical Region Laterality Modality Endoscopy 10/12/2024 10:2 3 AM EST Impressions 10/12/2024 10:43 AM EST - The examined portion of the ileum was normal. ? - Internal hemorrhoids. ? - The entire examined colon is normal. ? - No specimens collected. Recommendation: ?- Repeat colonoscopy in 10 years for screening ? purposes. Narrative 10/12/2024 10:43 AM EST [facility] GI Patient Name: Amber Hernández Procedure Date: 10/12/2024 10:23 AM Date of : 1965 Age: 59 Gender: Female Note Status: Finalized Attending MD: Alis Leon MD, Procedure Date No Time: 10/12/2024 Procedure: ? Colonoscopy Indications: ? Screening for colorectal malignant neoplasm Providers: ? Alis Leon MD Referring MD: ?Eliot Irizarry MD Medicines: ? Propofol per Anesthesia Complications: ? No immediate complications. Estimated Blood Loss: ? Estimated blood loss: none. Procedure: ? Pre-Anesthesia Assessment: ? - ASA Grade Assessment: II - A patient with mild ? systemic disease. ? After I obtained informed consent, the scope was ? passed under direct vision. Throughout the procedure, ? the patient's blood pressure, pulse, and oxygen ? saturations were monitored continuously.The ? Colonoscope was introduced through the anus and ? advanced to the terminal ileum. The colonoscopy was ? performed without difficulty. The patient tolerated ? the procedure well. The quality of the bowel ? preparation was good. Findings: ?The perianal and digital rectal examinations were ? normal. ? The terminal ileum appeared normal. ? Internal hemorrhoids were found during retroflexion. ? The hemorrhoids were Grade I (internal hemorrhoids ? that do not prolapse). ? The entire examined colon appeared normal. Procedure Code(s): ? --- Professional --- ? 50297, Colonoscopy, flexible; diagnostic, including ? collection of specimen(s) by brushing or washing, when ? performed (separate procedure) Diagnosis Code(s): ? --- Professional --- ? Z12.11, Encounter for screening for malignant neoplasm ? of colon CPT copyright 2020 [employer]. All rights reserved. The codes documented in this report are preliminary and upon internet marketing manager review may be revised to meet current compliance requirements. Alis Leon MD 10/12/2024 10:42:53 AM This report has been signed electronically.Alis Leon MD Number of Addenda: 0 Note Initiated On: 10/12/2024 10:23 AM Scope In: Scope Out: ? Endoscopy Department at [facility] - [address] [place] [address], ? [place] [address] Procedure Note Alis Leon MD - 10/12/2024 [facility] GI Patient Name: Amber Hernández Procedure Date: 10/12/2024 10:23 AM Date of : 1965 Age: 59 Gender: Female Note Status: Finalized Attending MD: Alis Leon MD, Procedure Date No Time: 10/12/2024 Procedure: Colonoscopy Indications: Screening for colorectal malignant neoplasm Providers: Alis Leon MD Referring MD: Eliot Irizarry MD Medicines: Propofol per Anesthesia Complications: No immediate complications. Estimated Blood Loss: Estimated blood loss: none. Procedure: Pre-Anesthesia Assessment: - ASA Grade Assessment: II - A patient with mild systemic disease. After I obtained informed consent, the scope was passed under direct vision. Throughout theprocedure, the patient's blood pressure, pulse, and oxygen saturations were monitored continuously.The Colonoscope was introduced through the anus and advanced to the terminal ileum. The colonoscopy was performed without difficulty. The patient tolerated the procedure well. The quality of the bowel preparation was good. Findings: The perianal and digital rectal examinations were normal. The terminal ileum appeared normal. Internal hemorrhoids were found duringretroflexion. The hemorrhoids were Grade I (internal hemorrhoids that do not prolapse). The entire examined colon appeared normal. Procedure Code(s): --- Professional --- 32610, Colonoscopy, flexible; diagnostic, including collection of specimen(s) by brushing or washing,when performed (separate procedure) Diagnosis Code(s): --- Professional --- Z12.11, Encounter for screening for malignantneoplasm of colon CPT copyright 2020 [employer]. All rights reserved. The codes documented in this report are preliminary and upon internet marketing manager reviewmay be revised to meet current compliance requirements. Alis Leon MD 10/12/2024 10:42:53 AM This report has been signed electronically.Alis Leon MD Number of Addenda: 0 Note Initiated On: 10/12/2024 10:23 AM Scope In: Scope Out: Endoscopy Department at [facility] - [address] [place] [id number] IMPRESSION: - The examined portion of the ileum was normal. - Internal hemorrhoids. - The entire examined colon is normal. - No specimens collected. Recommendation: - Repeat colonoscopy in 10 years for screening purposes. Alis Leon MD GI~PROCEDURE ORDERABLES Final Result * MAMMOGRAM SCREENING BILATERAL 3D JT WITH CAD (11/17/2023 10:45 AM EST) Anatomical Region Laterality Modality Mammography 09/28/2023 11:1 5 AM EST Narrative 11/23/2023 10:59 AM EST This is a summary report. The complete report is available in the patient's medical record. If you cannot access the medical record, please contact the sending organization for a detailed fax or copy. EXAM PERFORMED: ??MAMMOGRAM SCREENING BILATERAL 3D JT WITH CAD EXAM HISTORY: Screening Exam. No palpable abnormality. COMPARISON: 2021, 2020, 2019 TECHNIQUE: Bilateral full field digital mammography with synthesized (2D) the and Tomosynthesis (3-D) was performed using standard CC and MLO projections. Mammogram was interpreted in correlation with CAD and Tomosynthesis. BREAST DENSITY: There are scattered fibroglandular densities (approximately 25- 50% glandular, B). FINDINGS: No suspicious masses, grouped microcalcifications, or architectural distortion are identified. Typically benign asymmetries. No axillary lymphadenopathy. IMPRESSION: 1. No mammographic evidence of malignancy 2. Scattered fibroglandular densities BI-RADS Category 2: Benign 3342F RECOMMENDATION: Routine mammography screening in one year. The results of this examination have been communicated to the patient through a lay letter in accordance with the Mammography Quality Standards Act. Report reviewed and signed by : Dr. Josesito White MD on 11/23/2023 10:59 AM. Workstation Name - [id number] Procedure Note Josesito White MD - 07/10/2024 This is a summary report. The complete report is available in thepatient's medical record. If you cannot access the medical record, pleasecontact the sending organization for a detailed fax or copy. EXAM PERFORMED: MAMMOGRAM SCREENING BILATERAL 3D JT WITH CAD EXAM HISTORY: Screening Exam. No palpable abnormality. COMPARISON: 2021, 2020, 2019 TECHNIQUE: Bilateral full field digital mammography with synthesized (2D)the and Tomosynthesis (3-D) was performed using standard CC and MLOprojections. Mammogram was interpreted in correlation with CAD andTomosynthesis. BREAST DENSITY: There are scattered fibroglandular densities(approximately 25- 50% glandular, B). FINDINGS: No suspicious masses, grouped microcalcifications, orarchitectural distortion are identified. Typically benign asymmetries. Noaxillary lymphadenopathy. IMPRESSION: 1. No mammographic evidence of malignancy 2. Scattered fibroglandular densities BI-RADS Category 2: Benign 3342F RECOMMENDATION: Routine mammography screening in one year. The results of this examination have been communicated to the patientthrough a lay letter in accordance with the Mammography Quality StandardsAct. Report reviewed and signed by : Dr. Josesito White MD on 11/23/2023 10:59AM. Workstation Name - [id number] us Niki Enriquez DO IMG BI PROCEDURES Final R esult from Last 3 Months or Most Recently Relevant to Health Maintenance Insurance [facility] Care Teams Painter Foreman Relationship Specialty Start Date End Date Eliot Irizarry MD [address] [place] [address] [address] [place] PCP - General Internal Medicine 09/05/13
--- OUTSIDE RECORDS SUMMARY | 2025-03-30 06:07 | XMS_ITS | Clinical Summary ---
Author Organization [facility] Address [address] [place] [address] Care Team Providers Care Gis Web Developer Name Role Phone Eliot Irizarry MD Primary Care Provider [phone] Maxwell Crouch MD Unavailable Allergies Active Allergy Reactions Criticality Noted Date Comments Citric Acid Unknown/Patient and Family Unable to Define Medium 12/17/2021 Fentanyl Unknown/Patient and Family Unable to Define Medium 12/17/2021 Morphine Unknown/Patient and Family Unable to Define Medium 12/17/2021 No Known Allergies Unknown/Patient and Family Unable to Define Medium 12/17/2021 Oxycodone Unknown/Patient and Family Unable to Define Medium 12/17/2021 Medications atorvastatin (LIPITOR) 10 MG tablet 11/03/2021 Active fluorouracil (EFUDEX) 5 % cream 11/18/2021 Active ipratropium (ATROVENT) 0.03 % nasal spray 12/04/2021 Activ e PARoxetine (Paxil) 40 MG tablet Take 40 mg by mouth. 12/10/2020 Active sucralfate (Carafate) 1 g tablet Take 1 g by mouth. 12/10/2020 Active clonazePAM (KlonoPIN) 1 MG tabletIndicatio ns:Essential tremor Take 0.5 tablets (0.5 mg total) by mouth 2 times a day. 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 Encounters Date Type Department Care Team Description 02/28/2025 3:40 PM EDT Office Visit [facility] Department Of Neurology [address] [place] [phone] Maxwell Crouch MD Essential tremor (Primary Dx); Benign head tremor from Last 3 Months Immunizations Immunization Administration Dates Next Due Influenza, Quadrivalent (FLU ARIX, AFLURIA, FLULAVAL, FLUZONE) Preservative Free IM 08/27/2020 Zoster Vaccine Recombinant (Shingrix) 10/26/2020 ,08/27/2020 Social History Tobacco Use Types Packs/Day Years Used Date Smoking Tobacco: Never Assessed Comments Unknown Sex and Gender Information Value Date Recorded Sex Assigned at Not on file Legal Sex Female 3:33 PM EST Gender Identity Not on file Sexual Orientation Not on file Last Filed Vital Signs Vital Sign Reading Time Taken Comments Blood Pressure 118/73 02/28/2025 3:53 PM EDT Pulse 67 02/28/2025 3:53 PM EDT Temperature 36.6 ??C (97.8 ??F) 12/17/2021 4:00 PM ES T Respiratory Rate - - Oxygen Saturation 98% 02/28/2025 3:53 PM EDT Inhaled Oxygen Concentration - - Weight 63 kg (139 lb) 12/17/2021 4:00 PM EST Height 167.6 cm (5' 6 ) 12/17/2021 4:00 PM EST Body Mass Index 22.44 12/17/2021 4:00 PM EST Plan of Treatment Upcoming Encounters Date Type Department Care Team (Late st Contact Info) Description 05/02/2025 3:40 PM EDT Office Visit [facility] Department Of Neurology [address] [place] [address] Maxwell Crouch MD [address] [place] [phone] Health Maintenance Due Date Last Done Comments Hepatitis C Virus Screening 1965 HIV Screening 1976 DTaP/Tdap/Td Vaccines (1 - Tdap) 1982 Pneumococcal Vaccines 50+ (1 of 2 - PCV) 1982 Pap Smear (Ages 21-65) 1984 Mammogram 2003 Colonoscopy 2008 RSV Vaccine 60 years and older and Patients (1 - Risk 60-74 years 1-dose series) 2023 COVID-19 Vaccine (4 - 2023-2 5 season) 2024 10/09/2023, 08/22/2022, 11/18/2021 Influenza Vaccine 06/22/2025 08/22/2022, 08/27/2020 Zoster (Shingles) Vaccine Completed 2019, 08/27/2020 Hepatitis B Vaccines Aged Out No long er eligible based on patient's age to complete this topic Insurance [employer]UE [email or web address] OUT OF [facility] [place] [employer] [place] OUT [facility] Care Teams Gis Web Developer Relationship Specialty Start Date End Date Eliot Irizarry MD [address] [place] [address] [place] [address] PCP - General 12/01/22 Maxwell Crouch MD [address] [place] [id number] Neurology 02/09/24
--- OUTSIDE RECORDS SUMMARY | 2025-03-30 06:07 | XMS_ITS | Encounter Summary ---
Author Organization [facility] Address [address] [place] [address] Care Team Providers Care Signal Worker Name Role Phone Pcp, No Primary Care Provider Unavailsatish e Eliot Irizarry MD Primary Care Provider [phone] Maxwell Crouch MD Unavailable [phone] Encounter Details Date Type Department Care Team (Late st Contact Info) Description 07/15/2022 Erroneous Encounter [facility] [address] [place] [phone] Priyanka Zaragoza MD [address] [id number] Social History Tobacco Use Types Packs/Day Years Used Date Smoking Tobacco: Never Assessed Comments Unknown Sex and Gender Information Value Date Recorded Sex Assigned at Not on file Legal Sex Female 3:33 PM EST Gender Identity Not on file Sexual Orientation Not on file documented as of this encounter Plan of Treatment Upcoming Encounters Date Type Department Care Team (Late st Contact Info) Description 05/02/2025 3:40 PM EDT Office Visit [facility] Department Of Neurology [place] [address] [place] [phone] Maxwell Crouch MD [address] [place] [phone] documented as of this encounter Visit Diagnoses Not on filedocumented in this encounter Care Teams Signal Worker Relationship Specialty Start Date End Date Pcp, No PCP - General General Medicine 12/11/21 11/30/22 Eliot Irizarry MD [address] [place] [address] [place] [phone] PCP - General 12/01/22 Maxwell Crouch MD [address] [place] [phone] Neurology 02/09/24 documented as of this encounter
[2025-03-30 06:23] LABS: MANUAL DIFF FLAG NO
[2025-03-30 07:41] LABS: Basophils Percent Auto 0.6 % (0-2); Hematocrit 37.9 % (37.0-47.0); Hemoglobin 13.5 g/dl (12.0-16.0); Imm Gran Abs Auto 0.01 X10*3/uL (0.00-0.03); Imm Gran Pct Auto 0.3 % (0.0-0.4); Lymphocytes Absolute Auto 0.9 X10*3/uL (1.2-4.9); Lymphocytes Percent Auto 26.1 % (20-40); Mean Corpuscular HGB Conc 35.6 g/dl (31.0-35.0); Mean Corpuscular Hemoglobin 31.3 pg (27.0-33.0); Mean Corpuscular Volume 87.7 fL (80.0-98.0); Mean Platelet Volume 12.7 fL (9.4-12.3); Monocytes Absolute Auto 0.2 X10*3/uL (0.1-1.2); Monocytes Percent Auto 6.7 % (2-11); Neutrophils Absolute Auto 2.3 x10*3/uL (2.0-8.3); Neutrophils Percent Auto 66.3 % (45-73); Platelet Count 131 X10*3/uL (160-400); Red Blood Count 4.32 X10*6/uL (4.20-5.50); Red Cell Distribution Width 11.5 % (11.0-16.0); White Blood Count 3.4 X10*3/uL (4.8-10.8)
[2025-03-30 07:56] LABS: Appearance Urine Clear; Color Urine Yellow; Glucose Urine UA Negative (Negative); Leukocyte Esterase Urine Trace (Negative); Nitrite Urine Negative (Negative); PH 8.5 (5.0-9.0); Specific Gravity - Urine 1.015 (1.005-1.025); UMIC TRIGGER UACC YES; Urine Blood Negative (Negative); Urine Ketones Negative (Negative); Urine Protein Negative (Neg-Trace)
[2025-03-30 08:21] LABS: Alanine Aminotransferase 40 U/L (0-31); Albumin Level 4.2 g/dL (3.5-5.0); Alkaline Phosphatase 91 U/L (39-117); Anion Gap 10 (12-20); Aspartate Amino Transferase 30 U/L (5-31); Bilirubin Total 0.7 mg/dL (0.0-1.0); Blood Urea Nitrogen 20 mg/dL (9-16); Calcium 9.1 mg/dL (8.4-10.2); Carbon Dioxide 29 mmol/L (22-29); Chloride 104 mmol/L (96-108); Cholesterol 178 mg/dL (<200); Estimated Glomerular Filt Rate > 60; Glucose Fasting 98 mg/dL (60-99); HDL Cholesterol 47 mg/dL (>40); LDL Cholesterol Calculated 113 mg/dL (<100); Potassium 4.1 mmol/L (3.3-5.1); Sodium 139 mmol/L (135-145); Total Protein 6.5 g/dL (6.5-8.0); Triglycerides 92 mg/dL (<150)
[2025-03-30 08:22] LABS: Bacteria Urine None Seen (None Seen); Hyaline Casts Urine 0-2 /LPF (0-2); Squamous Epithelial Cell Urine 0-2 /HPF (0-2); WBC Urine 0-5 /HPF (0-5)
[2025-03-30 08:44] LABS: Folate 10.2 ng/mL (> or = 4.0); Vitamin B12 990 pg/mL (200-900)
== END 2025-03-30 06:05 | disposition home or self-care (01) ==
LOC: HO.LAB 06:04
PROVIDERS: PCP Internal Medicine; Visit Provider Internal Medicine
DX: D64.9 Anemia, unspecified (principal); E78.00 Pure hypercholesterolemia, unspecified; E53.8 Deficiency of other specified B group vitamins
CPT/HCPCS: 36415; 80053; 80061; 81001; 81003; 82607; 82746; 85025

== ENCOUNTER 2025-04-03 15:36 | Outpatient (AMB) | payer BC, SELFPAY ==
--- NOTE | 2025-04-03 15:56 | A.OFFPC_ITS ---
Vital Signs 04/03/25 15:58 Height 5 ft 6 in Weight 148 lb 4 oz BMI 23.9 BP 120/68 Blood Pressure Location Lt brachial Position Sitting Pulse 69 Pulse Source Pulse Oximeter Temp 97.3 F Temp Source Temporal Artery Scan Pulse Oximetry (%) 98 Oxygen Delivery Method Room Air Intake Visit Reasons: hyperlipidemia, tremor, anxiety Intake Note: Patient is here to follow up on HLD, Tremor, Anxiety. International Affairs Vice President Required: No Md Physician Dermatologist: Not Required per policy Accompanied by: Self / Same As Patient Allergies aspirin Allergy (Unknown, Verified 04/03/25 16:20) Unknown citalopram Allergy (Unknown, Verified 04/03/25 16:20) rash citric acid Allergy (Unknown, Verified 04/03/25 16:20) Rash,itching fentanyl Allergy (Unknown, Verified 04/03/25 16:20) Unknown gluten [GLUTEN] Allergy (Unknown, Verified 04/03/25 16:20) STOMACH UPSET morphine [MORPHINE] Allergy (Unknown, Verified 04/03/25 16:20) NAUSEA & VOMITING oxycodone [OXYCODONE] Allergy (Unknown, Verified 04/03/25 16:20) RIBEIRO surgical tape Allergy (Unknown, Uncoded 04/03/25 16:20) Unknown bupropion Adverse Reaction (Intermediate, Uncoded 04/03/25 16:20) Dizziness Medication List - Last Reconciled 04/03/25 by Eliot Irizarry MD atorvastatin 10 mg PO DAILY [domperidone 10 mg PO TIDWMEAL] paroxetine HCl 60 mg (1.5 x 40 mg) PO QAM primidone 200 mg PO BEDTIME propranolol ER 80 mg PO DAILY sucralfate 1 g PO QAM Tobacco use date assessed: 04/03/25 Dental Screening Dental Screen Date: 04/03/25 Did you have a dental visit in the last 12 months?: Yes Did you have a dental problem in the last 6 months where you did not have access to dental care?: No Was dental information given to patient?: Patient has dentist HPI hyperlipidemia, tremor, anxiety HPI Details Patient comes in today for her follow up visit She continues to experience head tremors, which she feels are getting worse lately She has been advised by neurology that these are essential tremors She is currently on long-acting Propranolol ER 80 mg QD and Primidone 200 mg Q HS but patient feels that these are not helping enough She is currently seeing neurology, who is with [facility] but office is based in [place], [place] She is also still experiencing increased anxiety but states that her current Rx are helping She denies any headaches or dizziness Denies any chest pains, no increased SOB No nausea/vomiting, no abdominal pain No change in bowel habits noted States that she had her annual mammogram done back in November 2024 in [place] and her results were normal She had her follow up labs done a few days ago - to discuss her results [facility] Medical History Basal cell carcinoma of right lower leg Anxiety Post traumatic stress disorder (PTSD) Osteopenia Gastroparesis GERD without esophagitis Benign essential tremor Lumbar degenerative disc disease Cervical spinal stenosis Pure hypercholesterolemia Surgical History (Updated 04/03/25 @ 16:29 by Eliot Irizarry MD) Hx of colonoscopy S/P Mohs surgery for basal cell carcinoma History of umbilical hernia repair History of hysterectomy Family History Father Cancer Mother CVD (cardiovascular disease) Social History Housing: House Alcohol intake: former Patient Tobacco Use Status: Never used Tobacco e-Cigarette/Vaping Use: Never Used Second Hand Smoke Exposure: Yes service: No Current occupational status: employed 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 1. Little interest or pleasure in doing things: not at all 2. Feeling down, depressed, or hopeless: not at all 3. Trouble falling or staying asleep, or sleeping too much: not at all 4. Feeling tired or having little energy: not at all 5. Poor appetite or overeating: not at all 6. Feeling bad about yourself - or that you are a failure or have let yourself or your family down: not at all 7. Trouble concentrating on things, such as reading the newspaper or watching television: not at all 8. Moving or speaking so slowly that other people could have noticed. Or the opposite - being so fidgety or restless that you have been moving around a lot more than usual: not at all 9. Thoughts that you would be better off or of hurting yourself in some way: not at all Total score: 0 Depression Screening Interpretation: Negative Depression Screening Done: Yes 86721 - PHQ-9 Billing: Yes Source: Developed by Drs. Boo Vasquez, Mariajose Gross, Alejandro Villanueva and colleagues, with an educational annie from [employer]. Thrive Questionnaire Date Thrive assessed: 04/03/25 I am a: Patient What is your living situation today?: I have a steady place to live Within the past 12 months, did the food you bought not last and you didn't have the money to get more?: Never true Within the past 12 months, did you worry whether your food would run out before you got money to buy more?: Never true Do you have trouble paying for medicines?: No Do you have trouble getting transportation to medical appointments?: No Do you have trouble paying your heating and electricity bill?: No Do you have trouble taking care of your child, family member or friend?: No Do you have trouble with day-to-day activities such as bathing, preparing meals, shopping, managing finances, etc.?: No Are you currently unemployed and looking for a job?: No Are you interested in more education?: No Please select the resources that you would like help with: None Currently or been in a relationship where the following occur: No concerns reported THRIVE Score: 0 AUDIT C Alcohol Use Questionnaire (AUDIT-C) 1. How often do you have a drink containing alcohol?: Never 3. How often do you have six or more drinks on one occasion?: Never Total Score: 0 Score Reviewed/Action Taken: Yes FRANDY-7 AMB Questionnaire FRANDY-7 Date FRANDY - 7 assessed: 04/03/25 Feeling nervous, anxious, or on edge: 0 = Not at all Not being able to stop or control worryin = Not at all Worrying too much about different things: 0 = Not at all Trouble relaxin = Not at all Being so restless that it is hard to sit still: 0 = Not at all Becoming easily annoyed or irritable: 0 = Not at all Feeling afraid as if something awful might happen: 0 = Not at all Total FRANDY-7 score (0-4 normal; 5-9 mild; 10-14 moderate; 15-21 severe): 0 Source: Developed by Drs. Boo Vasquez, Mariajose Gross, Alejandro Villanueva and colleagues, with an educational annie from [employer]. Review of Systems Const Denies chills, Reports fatigue, Denies fever(s) and Denies headache(s) ENT Denies dysphagia, Denies dizziness, Denies otalgia, Denies headache(s), Reports neck pain, Denies odynophagia and Denies sore throat Card Denies chest pain, Denies palpitations and Denies dyspnea Resp Details: Denies chest congestion, Denies cough and Denies dyspnea GI Denies abdominal pain, Denies constipation, Denies dysphagia, Denies heartburn, Denies diarrhea, Denies nausea, Denies odynophagia and Denies vomiting Denies difficulty voiding, Denies nocturia, Denies dysuria and Denies urinary urgency Musc Reports back pain (on and off) and Reports neck pain Skin/Breast Denies rash Neuro Denies dizziness, Denies headache(s) and Reports tremor(s) (head tremors) Psych Reports anxiety and Denies panic attacks Endo Reports fatigue and Denies palpitations Physical exam (Primary Care) Vital Signs: Last Vital Signs Temp 97.3 F 04/03/25 15:58 Pulse 69 04/03/25 15:58 BP 120/68 04/03/25 15:58 Pulse Ox 98 04/03/25 15:58 Oxygen Delivery Method Room Air 04/03/25 15:58 BMI result Body Mass Index 23.9 Tobacco/Smoking Status: Tobacco use Status Tobacco use date assessed 04/03/25 04/03/25 16:04 Patient Tobacco Use Status Never used Tobacco 04/03/25 16:04 e-Cigarette/Vaping Use Never Used 04/03/25 16:04 PHQ-9: PHQ-9 Score PHQ-9: Total score 0 04/03/25 16:33 Depression Screening Interpretation: Negative Thrive Assessment: Date of Thrive Assessment Date Thrive assessed 04/03/25 04/03/25 16:04 Currently or been in a relationship where the following occur: No concerns reported Const General: no acute distress and alert HENMT Ears: TM's normal bilaterally and EAC's normal Throat: Yes posterior oropharynx normal and Yes tonsils normal (no TP congestion noted) Neck Neck: Yes supple and No lymphadenopathy Thyroid: Thyroid normal Resp Auscultation: clear to auscultation bilaterally, no rales and no wheezes Cardio Rate: regular rate Rhythm: regular rhythm Heart sounds: no murmurs GI Palpation (GI): Soft to palpation and nontender Auscultation: normal bowel sounds General: Yes no CVA tenderness Back/Spine/Pelvis Back: no CVA tenderness Cervical Spine: Cervical spine tenderness Thoracic/Lumbar Spine: lumbar spinal tenderness Skin Rashes: no rashes Neuro Other: (+) mild tremor involving the head Extrem General: Yes no clubbing, cyanosis or edema Results Reviewed Results Reviewed: Laboratory Tests 03/30/25 03/30/25 06:18 06:21 WBC 3.4 L Hgb 13.5 Hct 37.9 Plt Count 131 L Sodium 139 Potassium 4.1 Creatinine 0.92 Estimated GFR > 60 Fasting Glucose 98 Calcium 9.1 AST 30 ALT 40 H Triglycerides 92 Cholesterol 178 LDL Cholesterol, Calc 113 H HDL Cholesterol 47 Vitamin B12 990 H Folate 10.2 Ur Specific [place] 1.015 Urine Protein Negative Urine Glucose (UA) Negative Urine Blood Negative Urine Nitrite Negative Ur Leukocyte Esterase Trace H Coding Level of Care Code Est Pt Level 4 (63863) Diagnoses Pure hypercholesterolemia E78.00 Gastroparesis K31.84 GERD without esophagitis K21.9 Elevated vitamin B12 level R79.89 Cervical spinal stenosis M48.02 Degeneration of intervertebral disc of lumbar region with discogenic back pain M51.360 Disc-related pain type: discogenic back pain only Benign essential tremor G25.0 Osteopenia, unspecified location M85.80 Osteopenia location: unspecified Post traumatic stress disorder (PTSD) F43.10 Additional Codes PHQ-9 - 44707 - PHQ-9 Billing: Yes ([id number]) Assessment & Plan Assessment & Plan (1) Pure hypercholesterolemia: Code(s): E78.00 - Pure hypercholesterolemia, unspecified Category: Medical Plan: Results of her labs done a few days ago reviewed and discussed with patient Reinforced low cholesterol diet Continue Atorvastatin 10 mg QD Will recheck her labs and fasting lipids in 6 months for follow-up (2) Gastroparesis: Code(s): K31.84 - Gastroparesis Category: Medical Plan: Continue Domperidone (Motilium) 10 mg TID with meals Patient is reminded again to eat small frequent feedings (as opposed to eating larger meals) to minimize triggering her abdominal symptoms Follow up with GI (Dr. Alis Leon) as scheduled (3) GERD without esophagitis: Code(s): K21.9 - Gastro-esophageal reflux disease without esophagitis Category: Medical Plan: Dietary restrictions reinforced Continue Carafate tablets 1 gm Q AM; she also used to take Famotidine 40 mg BID PRN but has not needed this in a while now Follow-up with GI (Dr. Alis Leon) at [facility] as scheduled (4) Elevated vitamin B12 level: Code(s): R79.89 - Other specified abnormal findings of blood chemistry Category: Medical Plan: Have advised patient that her B12 level is now back to near normal levels again Patient is NOT taking any Vitamin B12 supplements Will continue monitoring her B12 level regularly and if this goes up again, may need to start her on some additional work ups to look into this (5) Cervical spinal stenosis: Comment: Cervical spine MRI done in October 2019 showed (+) moderate to severe stenosis at C4-C5 and C5-C6 with slight right-sided cord deformity at C5-C6. There is no signal change in the cord at any level. Code(s): M48.02 - Spinal stenosis, cervical region Category: Medical Plan: Patient prefers to continue managing her neck symptoms conservatively at this time She was seen by neurosurgery a couple of years ago and was advised of option of cervical diskectomy and fusion but patient decided to hold off - surgery is not urgent since she has NO significant radicular or myelopathic symptoms (6) Lumbar degenerative disc disease: Code(s): M51.36 - Other intervertebral disc degeneration, lumbar region Category: Medical Qualifiers: Disc-related pain type: discogenic back pain only Qualified Code(s): M51.360 - Other intervertebral disc degeneration, lumbar region with discogenic back pain only Plan: Reinforced activity and weight lifting restrictions Repeat lumbar spine x-rays done back in May 2022 revealed (+) multilevel degenerative spondylosis and degenerative disc disease from L1-L2 through L3-L4, with (+) lower lumbar spine facet arthritis as well. There is also (+) scoliosis of the lumbar spine to the right side Follow-up with [facility] as scheduled (7) Benign essential tremor: Code(s): G25.0 - Essential tremor Category: Medical Plan: Continue Propranolol ER 80 mg QD and Primidone 200 mg Q HS Follow up with [facility] as scheduled (8) Osteopenia: Comment: Repeat BMD done on 08/12/2018 showed a 5.1% decline in her total femur bone density; bone density is otherwise stable compared to her previous BMD in October 2015 Code(s): M85.80 - Other specified disorders of bone density and structure, unspecified site Category: Medical Qualifiers: Osteopenia location: unspecified Qualified Code(s): M85.80 - Other specified disorders of bone density and structure, unspecified site Plan: Continue oral Calcium and Vitamin-D supplements daily Repeat BMD done in May 2022 at [place] revealed normal BMD in the lumbar spine (T-score of 1.4) and (+) osteopenia in the hips (T-score of -1.8) Patient is encouraged to exercise regularly to help slow down her bone density decline Will continue to monitor her BMD every 2 years (9) Post traumatic stress disorder (PTSD): Code(s): F43.10 - Post-traumatic stress disorder, unspecified Category: Medical Plan: Continue Paroxetine 60 mg QD - feels that she is doing okay now on her Rx She used to take Clonazepam 0.5 mg 1/2 tablet twice a day as needed for years and was also on Quetiapine ER 50 mg Q HS more recently but is now OFF both of these Rx She was referred to [facility] in the past but patient states that she cannot afford financially to continue with her counseling as she has a co-pay of $40 per session She was started additionally on Bupropion 75 mg BID several months ago but she could not tolerate the Rx (dizziness) We also tried adding Rexulti 1 mg QD but this was denied by insurance and we ended up starting her on Quetiapine ER instead, which she is no longer taking at present Plan Follow up in 6 months Orders: Orders Vitamin B12 and Folate 6 Months R79.89 - Other specified abnormal findings of blood chemistry Complete Blood Count Auto Diff 6 Months D64.9 - Anemia, unspecified Lipid Panel 6 Months E78.00 - Pure hypercholesterolemia, unspecified Comprehensive [place]. Panel Fast 6 Months E78.00 - Pure hypercholesterolemia, unspecified TSH reflex Free T4 6 Months E78.00 - Pure hypercholesterolemia, unspecified UA CC w/rflx Micro + Cult 6 Months R30.0 - Dysuria Vitamin D 25-OH Total 6 Months E55.9 - Vitamin D deficiency, unspecified
[2025-04-03 15:58] VITALS: BP 120/68; PULSE 69; TEMP 36.3; O2SAT 98; BMI 23.9
--- OUTSIDE RECORDS SUMMARY | 2025-04-03 16:22 | XMS_ITS | Clinical Summary ---
Author Organization [facility] Address [address] [place] [address] Phone Care Team Providers Care Raw Stock Drier Tender Name Role Phone Eliot Irizarry MD Primary [...] Team Description 03/01/2025 Telephone Gastroenterology - [address] [facility] [address] [place] [address] Alis Leon MD from Last 3 Months Surgical History Surgery Date Site/Laterality Comments HYSTERECTOMY 2014 PROCEDURE: HISTORICAL HYSTERECTOMY HERNIA REPAIR 08/2017 PROCEDURE: HISTORICAL HERNIA REPAIR/UMB KNEE ARTHROSCOPY PROCEDURE: VT ARTHROSCOPY AID TX SPINE&/FX KNEE W/O FIXJ OTHER SURGICAL HISTORY Left PROCEDURE: HISTORY OTHER; COMMENT: elbow surgery HYSTERECTOMY 2014 PROCEDURE:HYSTERECTOMY Medical History Medical History Date Comments Mixed hyperlipidemia DX:Mixed hy perlipidemia T6 vertebral fracture (CMS/H CC V24, [facility]/HCC V28) 2014 DX:T6 vertebral fracture (HC C); COMMENT: mild, noted on CTA to r/o PE Cancer (CMS/HCC V24, CMS/FORMERLY [facility] V28) DX:Cancer (HCC);COMMENT:SKIN Basal cell carcinoma (BCC) Gastroparesis Cervical cancer (CMS/HCC V24 , [facility]/FORMER[facility] V28) Herniated disc, cervical Family History Medical [...] Office Visit Gastroenterology - [address] [place] [phone] Alis Leon MD [address] [place] [address] Health Maintenance Due Date Last Done Comments [...] Maintenance Results * COLONOSCOPY Anesthesia - MAC; [facility] ENDOSCOPY (10/12/2024 10:41 AM EST) Anatomical Region Laterality Modality Endoscopy 10/12/2024 10:2 3 AM EST Impressions 10/12/2024 10:43 AM EST - The examined portion of the ileum was normal. ? - Internal hemorrhoids. ? - The entire examined colon is normal. ? - No specimens collected. Recommendation: ?- Repeat colonoscopy in 10 years for screening ? purposes. Narrative 10/12/2024 10:43 AM EST [facility] GI Patient Name: Amber Hernández Procedure [...] Procedure Code(s): ? --- Professional --- ? 30732, Colonoscopy, flexible; diagnostic, including ? collection of specimen(s) by brushing or washing, when ? performed (separate procedure) Diagnosis Code(s): ? --- Professional --- ? Z12.11, Encounter for screening for malignant neoplasm ? of colon CPT copyright 2020 [employer]. All rights reserved. The codes documented in this report are preliminary and upon call center nurse review may be revised to meet current compliance requirements. Alis Leon MD 10/12/2024 10:42:53 AM This report has been signed electronically.Alis Leon MD Number of Addenda: 0 Note Initiated On: 10/12/2024 10:23 AM Scope In: Scope Out: ? Endoscopy Department at [facility] - [address] [place] [address], ? [place] [address] Procedure Note Alis Leon MD - 10/12/2024 [facility] GI Patient Name: Amber Hernández Procedure [...] appeared normal. Procedure Code(s): --- Professional --- 45797, Colonoscopy, flexible; diagnostic, including collection of specimen(s) by brushing or washing,when performed (separate procedure) Diagnosis Code(s): --- Professional --- Z12.11, Encounter for screening for malignantneoplasm of colon CPT copyright 2020 [employer]. All rights reserved. The codes documented in this report are preliminary and upon call center nurse reviewmay be revised to meet current compliance requirements. Alis Leon MD 10/12/2024 10:42:53 AM This report has been signed electronically.Alis Leon MD Number of Addenda: 0 Note Initiated On: 10/12/2024 10:23 AM Scope In: Scope Out: Endoscopy Department at [facility] - [address] [place] [phone] IMPRESSION: - The examined portion of the [...] on 11/23/2023 10:59 AM. Workstation Name - [id number] Procedure Note Josesito White MD - 07/10/2024 [...] MD on 11/23/2023 10:59AM. Workstation Name - [id number] us Niki Enriquez DO IMG BI PROCEDURES Final R esult from Last 3 Months or Most Recently Relevant to Health Maintenance Insurance [facility] Care Teams Raw Stock Drier Tender Relationship Specialty Start Date End Date Eliot Irizarry MD [address] [place] [address] [address] [place] [place] PCP - General Internal Medicine 09/05/13
--- OUTSIDE RECORDS SUMMARY | 2025-04-03 16:22 | XMS_ITS | Encounter Summary ---
Author Organization [facility] Address [address] [place] [address] Care Team Providers Care Hook Loader Name Role Phone Pcp, No Primary Care Provider Unavailsatish e Eliot Irizarry MD Primary Care Provider [phone] Maxwell Crouch MD Unavailable [phone] Encounter Details Date Type Department Care Team (Late st Contact Info) Description 07/15/2022 Erroneous Encounter [facility] DEPT [address] [place] [phone] Priyanka Zaragoza MD [address] [id number] Social History Tobacco Use Types Packs/Day Years [...] Description 05/02/2025 3:40 PM EDT Office Visit [facility] Department Of Neurology [place] [address] [place] [phone] Maxwell Crouch MD [address] [place] [address] [phone] documented as of this encounter Visit Diagnoses Not on filedocumented in this encounter Care Teams Hook Loader Relationship Specialty Start Date End Date Pcp, No PCP - General General Medicine 12/11/21 11/30/22 Eliot Irizarry MD [address] [place] [address] [place] [address] PCP - General 12/01/22 Maxwell Crouch MD [address] [place] [id number] Neurology 02/09/24 documented as of this encounter
--- OUTSIDE RECORDS SUMMARY | 2025-04-03 16:22 | XMS_ITS | Clinical Summary ---
Author Organization [facility] Address [address] [place] [address] Care Team Providers Care Container Washer Machine Name Role Phone Eliot Irizarry MD Primary Care Provider [phone] Allergies Active Allergy Reactions Criticality Noted Date [...] age to complete this topic Care Teams Container Washer Machine Relationship Specialty Start Date End Date Eliot Irizarry MD [address] [place] [address] [place] [address] PCP - General Internal Medicine 08/21/19
--- OUTSIDE RECORDS SUMMARY | 2025-04-03 16:22 | XMS_ITS | Clinical Summary ---
Author Organization [address] Address [address] [place] [address] Care Team Providers Care Line Producer Name Role Phone Eliot Irizarry MD Primary Care Provider [phone] Allergies Active Allergy Reactions Criticality Noted Date [...] complete this topic Insurance BS Care Teams Line Producer Relationship Specialty Start Date End Date Eliot Irizarry MD [address] [place] [address] Dr [place], [place] [address] PCP - General Internal Medicine 08/10/24
--- OUTSIDE RECORDS SUMMARY | 2025-04-03 16:22 | XMS_ITS | Clinical Summary ---
Author Organization [facility] Address [address] [place] [address] Care Team Providers Care Novelty Maker Name Role Phone Eliot Irizarry MD Primary Care Provider [phone] Maxwell Crouch MD Unavailable [phone] Allergies Active Allergy Reactions Criticality Noted Date [...] Description 02/28/2025 3:40 PM EDT Office Visit [facility] Department Of Neurology [place] [address] [place] [phone] Maxwell Crouch MD Essential tremor (Primary Dx); [...] Description 05/02/2025 3:40 PM EDT Office Visit [facility] Department Of Neurology [place] [address] [place] [address] Maxwell Crouch MD [address] [place] [id number] Health Maintenance Due Date Last Done Comments [...] age to complete this topic Insurance BLUE [employer] OUT OF [facility] COMM[employer]CIAL BLUE [place] OUT OF [facility] Care Teams Novelty Maker Relationship Specialty Start Date End Date Eliot Irizarry MD [address] [place] [address] [place] [address] PCP - General 12/01/22 Maxwell Crouch MD [address] [place] [id number] Neurology 02/09/24
== END 2025-04-03 16:39 | disposition home or self-care (01) ==
LOC: HO.HMCH 15:36
PROVIDERS: PCP Internal Medicine; Visit Provider Internal Medicine
DX: E78.00 Pure hypercholesterolemia, unspecified (principal); K31.84 Gastroparesis; K21.9 Gastro-esophageal reflux disease without esophagitis; R79.89 Other specified abnormal findings of blood chemistry; M48.02 Spinal stenosis, cervical region; M51.360 Other intervertebral disc degeneration, lumbar region with discogenic back pain only; G25.0 Essential tremor; M85.80 Other specified disorders of bone density and structure, unspecified site; F43.10 Post-traumatic stress disorder, unspecified

== ENCOUNTER → 2025-04-03 15:36 | Outpatient (BNVA) | payer BC, SELFPAY | PROVIDERS: PCP Internal Medicine; Visit Provider Internal Medicine | DX: E78.00 Pure hypercholesterolemia, unspecified (principal); K31.84 Gastroparesis; K21.9 Gastro-esophageal reflux disease without esophagitis; R79.89 Other specified abnormal findings of blood chemistry; M48.02 Spinal stenosis, cervical region; M51.360 Other intervertebral disc degeneration, lumbar region with discogenic back pain only; G25.0 Essential tremor; M85.80 Other specified disorders of bone density and structure, unspecified site; F43.10 Post-traumatic stress disorder, unspecified; Z79.899 Other long term (current) drug therapy | CPT/HCPCS: 96127 ==

== ENCOUNTER 2025-09-24 05:59 | Outpatient (REF) | payer BC, SELFPAY ==
--- OUTSIDE RECORDS SUMMARY | 2025-09-24 06:02 | XMS_ITS | Clinical Summary ---
Author Organization [facility] Address [address] [place] [address] Phone Care Team Providers Care Coating Operator Name Role Phone Eliot Irizarry MD Primary [...] 1 capsule (60 mg total). 4 Active atorvastatin (LIPITOR) 10 mg tablet Take 1 tablet (10 mg total) by mouth at bedtime. 1 Active NON FORMULARY DOMPERIDONE 10 TID Active primidone (MYSOLINE) 50 mg tablet Take 2 tablets (100 mg total) by mouth 2 (two) times a day. Active sucralfate (Carafate) 1 gram tabletIndication s:Gastroesophage al reflux disease without esophagitis Take 1 tablet (1 g total) by mouth 1 (one) time each day. 90 each 2 5 05/09/20 26 Active Encounters Date Type Department Care Team Description 08/20/2025 Telephone Gastroenterology - [address] [place] [address] Alis Leon MD from Last 3 Months Surgical History Surgery Date Site/Laterality Comments HYSTERECTOMY 2014 PROCEDURE: HISTORICAL HYSTERECTOMY HERNIA REPAIR 08/2017 PROCEDURE: HISTORICAL HERNIA REPAIR/UMB KNEE ARTHROSCOPY PROCEDURE: LA ARTHROSCOPY AID TX SPINE&/FX KNEE W/O FIXJ OTHER SURGICAL HISTORY Left PROCEDURE: HISTORY OTHER; COMMENT: elbow surgery HYSTERECTOMY 2014 PROCEDURE:HYSTERECTOMY COLONOSCOPY 10/12/2024 nl ESOPHAGOGASTRODUODENOSCOPY 10/12/2024 nl, nl gastric and duodenal bx COLONOSCOPY 11/22/2013 - 11/21/2014 nl ESOPHAGOGASTRODUODENOSCOPY 12/23/2011 - 01/20/2012 nl Medical History Medical History Date Comments Mixed hyperlipidemia DX:Mixed hy perlipidemia T6 vertebral fracture (CMS/H CC V24, [facility]/HCC V28) 2014 DX:T6 vertebral fracture (HC C); COMMENT: mild, noted on CTA to r/o PE Cancer ([facility]/HCC V24, [facility] V28) DX:Cancer ([facility]);COMMENT:SKIN Basal cell carcinoma (BCC) Gastroparesis Cervical cancer ([facility]/HCC V24 , [facility] V28) Herniated disc, cervical GERD (gastroesophageal reflux disease) Family History Medical History Relation Name Comments [...] Safety Answer Date Record ed Physical Abuse Unrecognized value 10/12/2024 Verbal Abuse Unrecognized value 10/12/2024 Comments No Sex and Gender Information [...] 76 10/12/2024 11:03 AM EST Temperature 35.8 C (96.4 F) 10/12/2024 10:05 AM EST Respiratory Rate 16 10/12/2024 11:03 AM EST Oxygen Saturation 100% 10/12/2024 11:03 AM EST Inhaled Oxygen Concentration - - Weight 68.5 kg (151 lb) 04/24/2025 3:03 PM EDT Height 167.6 cm (5' 6 ) 04/24/2025 3:03 PM EDT Body Mass Index 24.37 04/24/2025 3:03 PM EDT Plan of Treatment Health Maintenance Due Date Last Done Comments Cervical Cancer Screening: Pap Smear 1984 Pneumococcal Vaccine: 50+ Years (1 of 1 - PCV) 2013 COVID-19 Vaccine (3 - Pfizer risk series) 05/04/2021 04/06/2021, 03/16/2021 HIV Screening 10/30/2022 Hepatitis C Screening 10/30/2022 Social Influencers of Health Screening 10/30/2022 Depression Screening 11/22/2024 Influenza Vaccine (#1) 2025 4, 09/27/2023, 09/05/2021, Additional history exists Breast Cancer Screening 11/17/2025 11/17/20 23, 11/10/2022, 07/29/2021, Additional history exists DTaP,Tdap,and Td Vaccines (2 - Td or Tdap) 06/15/2026 06/15/2016 Colorectal Cancer Screening: Colonoscopy 10/12/2034 10/12/2024 RSV Immunization Adult Patients (1 - 1-dose 75+ series) 2038 Zoster Vaccines Completed 10/26/2020, 08/27/2020 HIB Vaccines Aged Out No longer eligi [...] Maintenance Results * COLONOSCOPY Anesthesia - MAC; [facility] ENDOSCOPY (10/12/2024 10:41 AM EST) Anatomical Region Laterality Modality Endoscopy 10/12/2024 10:2 3 AM EST Impressions 10/12/2024 10:43 AM EST - The examined portion of the ileum was normal. - Internal hemorrhoids. - The entire examined colon is normal. - No specimens collected. Recommendation: - Repeat colonoscopy in 10 years for screening purposes. Narrative 10/12/2024 10:43 AM EST [facility] GI Patient Name: Yosvany Ritter Procedure Date: 10/12/2024 10:23 AM Date of [...] scope was passed under direct vision. Throughout the procedure, the patient's blood pressure, pulse, and oxygen saturations were monitored continuously.The Colonoscope was introduced through the anus and advanced to the terminal ileum. The colonoscopy was performed without difficulty. The patient tolerated the procedure well. The quality of the bowel preparation was good. Findings: The perianal and digital rectal examinations were normal. The terminal ileum appeared normal. Internal hemorrhoids were found during retroflexion. The hemorrhoids were Grade I (internal hemorrhoids that do not prolapse). The entire examined colon appeared normal. Procedure Code(s): --- Professional --- 50772, Colonoscopy, flexible; diagnostic, including collection of specimen(s) by brushing or washing, when performed (separate procedure) Diagnosis Code(s): --- Professional --- Z12.11, Encounter for screening for malignant neoplasm of colon CPT copyright 2020 [employer]. All rights reserved. The codes documented in this report are preliminary and upon gas truck driver review may be revised to meet current compliance requirements. Alis Leon MD 10/12/2024 10:42:53 AM This report has been signed electronically.Alis Leon MD Number of Addenda: 0 Note Initiated On: 10/12/2024 10:23 AM Scope In: Scope Out: Endoscopy Department at [facility] - [address] [place] [id number] Procedure Note Alis Leon MD - 10/12/2024 [facility] GI Patient Name: Yosvany Ritter Procedure Date: 10/12/2024 10:23 AM Date of [...] appeared normal. Procedure Code(s): --- Professional --- 34646, Colonoscopy, flexible; diagnostic, including collection of specimen(s) by brushing or washing,when performed (separate procedure) Diagnosis Code(s): --- Professional --- Z12.11, Encounter for screening for malignantneoplasm of colon CPT copyright 2020 [employer]. All rights reserved. The codes documented in this report are preliminary and upon gas truck driver reviewmay be revised to meet current compliance requirements. Alis Leon MD 10/12/2024 10:42:53 AM This report has been signed electronically.Alis Leon MD Number of Addenda: 0 Note Initiated On: 10/12/2024 10:23 AM Scope In: Scope Out: Endoscopy Department at [facility] - [address] [place] [id number] IMPRESSION: - The examined portion of the [...] on 11/23/2023 10:59 AM. Workstation Name - [id number] Procedure Note Josesito White MD - 07/10/2024 [...] MD on 11/23/2023 10:59AM. Workstation Name - [id number] Niki Enriquez DO IMG BI PROCEDURES Final R esult from Last 3 Months or Most Recently Relevant to Health Maintenance Insurance [facility] Care Teams Coating Operator Relationship Specialty Start Date End Date Eliot Irizarry MD [address] [place] [address] Dr [address]ou [address] [place] [address] PCP - General Internal Medicine 09/05/13
--- OUTSIDE RECORDS SUMMARY | 2025-09-24 06:02 | XMS_ITS ---
Author Name [facility] Organization Unknown History of Medication Use Medication Directions Dispensed Refills Start Date End Date Status propranolol (INDERAL LA) 80 MG 24 hr capsule Take 1 capsule (80 mg total) by mouth daily. 4 active propranolol (INDERAL LA) 80 MG 24 hr capsule Take 1 capsule daily 4 05/02/20 25 active primidone (MYSOLINE) 50 mg tablet 1 tablet (50 mg total). 08/02/20 2 4 active atorvastatin (LIPITOR) 10 mg tablet 4 active clonazePAM (KlonoPIN) 1 MG tablet Take 0.5 tablets (0.5 mg total) by mouth 2 times a day. 4 active primidone (MYSOLINE) 50 MG tablet Take 2 tablets twice daily 4 05/02/20 25 active paroxetine (PAXIL) 40 mg tablet 1 tablet (40 mg total). 06/08/20 2 4 active sucralfate (CARAFATE) 1 gram tablet 1 tablet (1 g total). 4 active propranolol (INDERAL LA) 60 MG 24 hr capsule 80 mg. 4 11/17/20 24 aborted propranolol (INDERAL LA) 60 MG 24 hr capsule Take 1 tablet daily 4 10/18/20 24 active promethazine-DMTake 5 ml (oral) every 4-6 hours for 5 [id number] 4-6 zbyxajdvw2gesslflvtf0.2 5-15mg/5 mL 4 active prednisoneTake 1 Tab let (oral) 2 times per day for 7 [id number] times per qgvqugp1pfshwqyfabfdd11 mg 3 suspended meloxicamTake 1 Tabl et (oral) 1 time per day for 10 [id number] time per bgszfsg29jjfamymgkvqgg5 .5mg 3 suspended prednisoneTake 2 tab let (oral) 1 time per day for 5 [id number] time per tyhhnjz7zupfjzyyhteso06 mg 3 suspended ipratropium (ATROVENT) 0.03 % nasal spray 2 active fluorouracil (EFUDEX) 5 % cream 1 active atorvastatin (LIPITOR) 10 MG tablet 1 active clonazePAM (KlonoPIN) 1 MG tablet Take 1 mg by mouth. 1 07/26/20 24 aborted PARoxetine (Paxil) 40 MG tablet Take 40 mg by mouth. 1 active sucralfate (Carafate) 1 g tablet Take 1 g by mouth. 1 active DomperidoneTakeNo da te recordedNo form recordedNo frequency recordedNo route recordedNo set duration recordedNo set duration amount recordedactiveNo dosage strength recordedNo dosage strength units of measure recorded active KlonopinTakeNo date recordedNo form recordedNo frequency recordedNo route recordedNo set duration recordedNo set duration amount recordedactiveNo dosage strength recordedNo dosage strength units of measure recorded active atorvastatinTakeNo d ate recordedNo form recordedNo frequency recordedNo route recordedNo set duration recordedNo set duration amount recordedactiveNo dosage strength recordedNo dosage strength units of measure recorded active PaxilTakeNo date recordedNo form recordedNo frequency recordedNo route recordedNo set duration recordedNo set duration amount recordedactiveNo dosage strength recordedNo dosage strength units of measure recorded active CarafateTakeNo date recordedNo form recordedNo frequency recordedNo route recordedNo set duration recordedNo set duration amount recordedactiveNo dosage strength recordedNo dosage strength units of measure recorded active sucralfateTakeNo lory e recordedNo form recordedNo frequency recordedNo route recordedNo set duration recordedNo set duration amount recordedsuspendedNo dosage strength recordedNo dosage strength units of measure recorded suspended Allergies Allergen Reaction Severity Comment Documented Date Source Statu s GLUTEN 08/10/2024 [facility] active OXYCODONE UNKNOWN/PATIENT AND FAMILY UNABLE TO DEFINE 12/17/2021 [facility] active CITRIC ACID UNKNOWN/PATIENT AND FAMILY UNABLE TO DEFINE [facility] FENTANYL UNKNOWN/PATIENT AND FAMILY UNABLE TO DEFINE [facility] MORPHINE UNKNOWN/PATIENT AND FAMILY UNABLE TO DEFINE [facility] NO KNOWN ALLERGIES UNKNOWN/PATIENT AND FAMILY UNABLE TO DEFINE [facility] Problems Problem Status Onset Date Problem Type Date of Resolution Source Gastro-esophageal reflux disease without esophagitis active ProblemAct [facility] Depression active ProblemAct [facility] Anxiety disorder, unspecified active ProblemAct [facility] Pure hypercholesterolem ia, unspecified active ProblemAct [facility] Acute sinusitis, unspecified active 2023-12-12 ProblemAct [facility] Post-traumatic stress disorder, unspecified active ProblemAct [facility] Dysuria active EncounterDiagnosisAct [facility] Urinary frequency active EncounterDiagnosisAct [facility] Vaginal pain active EncounterDiagnosisAct [facility] Essential tremor active EncounterDiagnosisAct [facility] 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 ProblemAct [facility] Immunizations Vaccine Date Source Lot Number Status Zoster Vaccine Recombinant (Shingrix) 10/26/2020 [facility] [id number] completed Influenza, Quadrivalent (FLU ARIX, AFLURIA, FLULAVAL, FLUZONE) Preservative Free IM 08/27/2020 [facility] [id number] completed Zoster Vaccine Recombinant (Shingrix) 08/27/2020 [facility] [address] [id number] completed Encounters Encounter Type Encounter Reason Primary Diagnosis Location Date Ambulatory [facility] 06/22/20 Ambulatory Follow-up Follow-up [facility] 05/02/2025 Ambulatory Follow-up Follow-up [facility] 02/28/2025 Ambulatory Follow-up Follow-up [facility] 12/27/2024 Ambulatory Follow-up Follow-up [facility] 11/08/2024 Ambulatory Follow-up Follow-up [facility] 10/18/2024 Ambulatory Follow-up Follow-up [facility] 09/06/2024 Ambulatory Urinary frequency Urinary frequency [facility] 08/10/2024 Ambulatory Follow-up Follow-up [facility] 08/02/2024 Ambulatory Follow-up Follow-up [facility] 06/14/2024 Ambulatory Follow-up Follow-up [facility] 05/31/2024 Ambulatory Follow-up Follow-up [facility] 04/05/2024 Ambulatory [facility] 02/09/2024 Ambulatory [facility] 01/27/2023 Ambulatory Unspecified abdo nic[facility] 12/17/2021 Care Team Organization Name Specialty Phone Email Start Date End [facility] te [facility] 04/04/2025 025 [facility] 08/10/2024 [facility] 02/09/2024 05/31/2025 [facility] 01/05/2024 [facility] Found Primary Care 12/12/2023 [facility] 08/26/2023 06/03/2025 [facility] 08/26/2023 08/26/2023 [facility] 12/17/2021 05/31/2025 [facility] 12/17/2021 12/17/2021
--- OUTSIDE RECORDS SUMMARY | 2025-09-24 06:02 | XMS_ITS | Clinical Summary ---
Author Organization [address] Address [address] [place] [id number] Care Team Providers Care Skip Hoist Engineer Name Role Phone Eliot Irizarry MD Primary Care Provider [phone] Allergies Active Allergy Reactions Criticality Noted Date [...] 1 tablet (1 g total). 05/26/2024 Active propranoloL LA (INDERAL LA) 80 mg 24 hr capsule Take 1 capsule (80 mg total) by mouth. 11/20/2024 Active Active Problems No known active problems Immunizations Immunization Administration Dates Next Due Influenza, injectable, quadrivalent, [...] Sign Reading Time Taken Comments Blood Pressure 105/68 06/22/2025 8:48 AM EDT Pulse 74 06/22/2025 8:48 AM EDT Temperature 36.7 C (98 F) 06/22/2025 8:48 AM EDT Respiratory Rate 18 06/22/2025 8:48 AM EDT Oxygen Saturation 99% 06/22/2025 8:48 AM EDT Inhaled Oxygen Concentration - - Weight 66.7 kg (147 lb) 06/22/2025 8:48 AM EDT Height 167.6 cm (5' 6 ) 06/22/2025 8:48 AM EDT Body Mass Index 23.73 06/22/2025 8:48 AM EDT Plan of Treatment Health Maintenance Due Date Last Done Comments HIV screening 1976 Hepatitis C screening 1981 Tetanus adult (Td q 10,TDAP once) 1983 Cervical cancer screening 1984 Lipid disorder screening 2003 Diabetes screening 2008 Pneumococcal Vaccine (50+ years) (1 of 1 - PCV) 2013 Influenza vaccine 06/22/2025 08/27/2020 Covid-19 vaccine series ( - season) 2025 Breast cancer screening 11/17/2025 11/17/20 23, 11/10/2022, 07/29/2021, Additional history exists Colon cancer screening, Colonoscopy 10/12/2034 10/12/2024 RSV Immunization (1 - 1-dose 75+ series) 2038 Shingles vaccine (Shingrix) Completed 10/26/2020, 1 Meningococcal B Vaccine Aged Out No l onger eligible based on patient's age to complete this topic Meningococcal Vaccine Aged Out No ria stanley eligible based on patient's age to complete this topic Insurance [employer] Care Teams Skip Hoist Engineer Relationship Specialty Start Date End Date Eliot Irizarry MD [address] [place] [address] Dr [place], [place] [address] PCP - General Internal Medicine 08/10/24
--- OUTSIDE RECORDS SUMMARY | 2025-09-24 06:02 | XMS_ITS | Clinical Summary ---
Author Organization [facility] Address [address] [place] [address] Care Team Providers Care Environmental Technician Name Role Phone Eliot Irizarry MD Primary Care Provider [phone] Maxwell Crouch MD Unavailable [phone] Allergies Active Allergy Reactions Criticality Noted [...] capsuleIndicati ons:Essential tremor,Benign head tremor Take 1 capsule daily 30 capsule 3 05/02/2025 Active primidone (MYSOLINE) 50 MG tabletIndicatio ns:Essential tremor,Benign head tremor Take 2 tablets twice daily 120 tablet 3 05/02/2025 Active Active Problems Problem Noted Date Diagnosed Date Intercostal neuralgia 12/17/2021 Immunizations Immunization Administration Dates Next Due Influenza, [...] Sign Reading Time Taken Comments Blood Pressure 119/71 05/02/2025 3:37 PM EDT Pulse 70 05/02/2025 3:37 PM EDT Temperature 36.6 C (97.8 F) 12/17/2021 4:00 PM EST Respiratory Rate - - Oxygen Saturation 98% 05/02/2025 3:37 PM EDT Inhaled Oxygen Concentration - - Weight 63 kg (139 lb) 12/17/2021 4:00 PM EST Height 167.6 cm (5' 6 ) 12/17/2021 4:00 PM EST Body Mass Index 22.44 12/17/2021 4:00 PM EST Plan of Treatment Health Maintenance Due Date Last Done Comments Hepatitis C Virus Screening 1963 HIV Screening 1976 DTaP/Tdap/Td Vaccines (1 - Tdap) 1982 Pneumococcal Vaccines 50+ (1 of 2 - PCV) 1982 Pap Smear (Ages 21-65) 1984 Mammogram 2003 Colonoscopy 2008 RSV Vaccine 50 years and older and Patients (1 - Risk 50-74 years 1-dose series) 2013 Influenza Vaccine 06/22/2025 08/22/2022, 08/27/2020 COVID-19 Vaccine (4 - 2024-2 6 season) 2025 10/09/2023, 08/22/2022, 11/18/2021 Zoster (Shingles) Vaccine Completed 2019, 08/27/2020 Hepatitis B Vaccines Aged Out No long er eligible based on patient's age to complete this topic Insurance BLUE CROSS OUT OF [facility] OUT OF [facility] Care Teams Environmental Technician Relationship Specialty Start Date End Date Eliot Irizarry MD [address] [place] [address] [place] [address] PCP - General 12/01/22 Maxwell Crouch MD [address] [place] [address] Neurology 02/09/24
--- OUTSIDE RECORDS SUMMARY | 2025-09-24 06:03 | XMS_ITS | Clinical Summary ---
Author Organization [facility] Address [address] [place] [address] Care Team Providers Care Cant Hooker Name Role Phone Eliot Irizarry MD Primary Care Provider [phone] Allergies Active Allergy Reactions Criticality Noted Date [...] Cancer Screening (Colonoscopy) 2008 Influenza Vaccine (#1) 2025 08/27/2020 Breast Cancer Screening (Mammogram) 11/17/2025 11/17/2023, [...] age to complete this topic Care Teams Cant Hooker Relationship Specialty Start Date End Date Eliot Irizarry MD [address] [place] [address] [place] [address] PCP - General Internal Medicine 08/21/19
--- OUTSIDE RECORDS SUMMARY | 2025-09-24 06:03 | XMS_ITS | Encounter Summary ---
Author Organization [facility] Address [address] [place] [address] Care Team Providers Care Back Tender Pulp Drier Name Role Phone Eliot Irizarry MD Primary Care Provider [phone]- [phone] Maxwell Crouch MD Unavailable [phone] Encounter Details Date Type Department Care Team (Late st Contact Info) Description 05/22/2025 Scanned Document [facility] Department Of Neurology [address] [phone] Maxwell Crouch MD [address] [place] [address] Social History Tobacco Use Types Packs/Day Years Used Date Smoking Tobacco: Never Assessed Comments Unknown Sex and Gender Information Value Date Recorded Sex Assigned at Not on file Legal Sex Female 3:33 PM EST Gender Identity Not on file Sexual Orientation Not on file documented as of this encounter Plan of Treatment Not on file documented as of this encounter Visit Diagnoses Not on filedocumented in this encounter Care Teams Back Tender Pulp Drier Relationship Specialty Start Date End Date Eliot Irizarry MD [address] [place] [address] [place] [address] PCP - General 12/01/22 Maxwell Crouch MD [address] [place] [id number] Neurology 02/09/24 documented as of this encounter
--- OUTSIDE RECORDS SUMMARY | 2025-09-24 06:03 | XMS_ITS | Encounter Summary ---
Author Organization [facility] Address [address] [place] [address] Care Team Providers Care Wood Dowel Machine Operator Name Role Phone Pcp, No Primary Care Provider Unavailabl e Eliot Irizarry MD Primary Care Provider [phone] Maxwell Crouch MD Unavailable [phone] Encounter Details Date Type Department Care Team (Late st Contact Info) Description 07/15/2022 Erroneous Encounter [facility] [address] [place] [phone] Priyanka Zaragoza MD [address] [id number] Social History Tobacco Use Types Packs/Day Years [...] on filedocumented in this encounter Care Teams Wood Dowel Machine Operator Relationship Specialty Start Date End Date Pcp, No PCP - General General Medicine 12/11/21 11/30/22 Eliot Irizarry MD [address] [place] [address] [place] [address] PCP - General 12/01/22 Maxwell Crouch MD [address] [place] [address] Neurology 02/09/24 documented as of this encounter
[2025-09-24 06:13] LABS: MANUAL DIFF FLAG NO
[2025-09-24 07:13] LABS: Hematocrit 40.3 % (37.0-47.0); Hemoglobin 13.3 g/dl (12.0-16.0); Imm Gran Abs Auto 0.02 X10*3/uL (0.00-0.03); Imm Gran Pct Auto 0.5 % (0.0-0.4); Lymphocytes Absolute Auto 1.0 X10*3/uL (1.2-4.9); Mean Corpuscular HGB Conc 33.0 g/dl (31.0-35.0); Mean Corpuscular Hemoglobin 30.9 pg (27.0-33.0); Mean Corpuscular Volume 93.7 fL (80.0-98.0); NRBC Abs Auto 0.000 X10*3/uL (0.0-0.012); NRBC Pct Auto 0.0 /100WBC (0.0-0.2); Platelet Count 131 X10*3/uL (160-400); Red Blood Count 4.30 X10*6/uL (4.20-5.50); White Blood Count 4.0 X10*3/uL (4.8-10.8)
[2025-09-24 07:50] LABS: Alanine Aminotransferase 49 U/L (0-31); Albumin Level 4.4 g/dL (3.5-5.0); Alkaline Phosphatase 99 U/L (39-117); Anion Gap 9 (12-20); Aspartate Amino Transferase 36 U/L (5-31); Blood Urea Nitrogen 18 mg/dL (9-16); Calcium 8.9 mg/dL (8.4-10.2); Carbon Dioxide 33 mmol/L (22-29); Chloride 106 mmol/L (96-108); Cholesterol 197 mg/dL (<200); Estimated Glomerular Filt Rate > 60; HDL Cholesterol 54 mg/dL (>40); Potassium 4.9 mmol/L (3.3-5.1); Sodium 143 mmol/L (135-145); Total Protein 6.6 g/dL (6.5-8.0); Triglycerides 120 mg/dL (<150)
[2025-09-24 08:18] LABS: Folate 7.2 ng/mL (> or = 4.0); Vitamin B12 1224 pg/mL (200-900)
== END 2025-09-24 06:00 | disposition home or self-care (01) ==
LOC: HO.LAB 05:59
PROVIDERS: PCP Internal Medicine; Visit Provider Internal Medicine
DX: R79.89 Other specified abnormal findings of blood chemistry (principal); D64.9 Anemia, unspecified; E78.00 Pure hypercholesterolemia, unspecified; E55.9 Vitamin D deficiency, unspecified
CPT/HCPCS: 36415; 80053; 80061; 82306; 82607; 82746; 84443; 85025

== ENCOUNTER 2025-10-02 09:42 | Outpatient (AMB) | payer BC, SELFPAY ==
[2025-10-02 09:44] VITALS: BP 118/80; PULSE 76; O2SAT 97; BMI 24.5
--- NOTE | 2025-10-02 09:44 | MHC.PC.OV ---
Vital Signs 10/02/25 09:44 Height 5 ft 6 in Weight 152 lb BMI 24.5 BP 118/80 Blood Pressure Location Lt brachial Position Sitting Pulse 76 Pulse Source Pulse Oximeter Pulse Oximetry (%) 97 Oxygen Delivery Method Room Air Intake Visit Reasons: 6 month Wound Specialist Required: No Accompanied by: Self / Same As Patient Allergies aspirin Allergy (Unknown, Verified 10/02/25 10:27) Unknown citalopram Allergy (Unknown, Verified 10/02/25 10:27) rash citric acid Allergy (Unknown, Verified 10/02/25 10:27) Rash,itching fentanyl Allergy (Unknown, Verified 10/02/25 10:27) Unknown gluten (GLUTEN) Allergy (Unknown, Verified 10/02/25 10:27) STOMACH UPSET morphine (MORPHINE) Allergy (Unknown, Verified 10/02/25 10:27) NAUSEA & VOMITING oxycodone (OXYCODONE) Allergy (Unknown, Verified 10/02/25 10:27) RIBEIRO surgical tape Allergy (Unknown, Uncoded 10/02/25 10:27) Unknown bupropion Adverse Reaction (Intermediate, Uncoded 10/02/25 10:27) Dizziness Medication List - Last Reconciled 10/02/25 by Eliot Irizarry MD atorvastatin 10 mg PO DAILY [domperidone 10 mg PO TIDWMEAL] paroxetine HCl 60 mg (1.5 x 40 mg) PO QAM primidone 200 mg PO BEDTIME propranolol ER 80 mg PO DAILY sucralfate 1 g PO QAM Tobacco use date assessed: 10/02/25 Dental Screening Dental Screen Date: 10/02/25 Did you have a dental visit in the last 12 months?: Yes Did you have a dental problem in the last 6 months where you did not have access to dental care?: No Was dental information given to patient?: Patient has dentist HPI 6 month HPI Details Patient comes in today for her follow up visit States that she feels okay She denies any headaches or dizziness Denies any chest pains, no increased SOB No nausea/vomiting, no abdominal pain No change in bowel habits noted She continues to experience frequent head tremors and she feels that these have been getting worse lately She has reportedly been advised by neurology that these are essential tremors She is currently on long-acting Propranolol ER 80 mg QD and Primidone 200 mg Q HS but patient feels that these are not helping enough She has been seeing neurology that is affiliated with [facility] but their office is based out in [place], [place] She requested a trial of Botox injection and was supposedly referred out to specialists in [place] or [place] but patient went and got herself an appointment with Dr. Boo Gary at [facility] and she is now scheduled to start getting Botox injections with Dr. Gary next week She is also still experiencing increased anxiety but states that her current Rx are helping She had her follow up labs done last week - to discuss her results She would also like to get her flu shot today [facility] Medical History Basal cell carcinoma of right lower leg Anxiety Post traumatic stress disorder (PTSD) Osteopenia Gastroparesis GERD without esophagitis Benign essential tremor Lumbar degenerative disc disease Cervical spinal stenosis Pure hypercholesterolemia Surgical History Hx of colonoscopy S/P Mohs surgery for basal cell carcinoma History of umbilical hernia repair History of hysterectomy Family History Father Cancer Mother CVD (cardiovascular disease) Social History Housing: House Alcohol intake: former Patient Tobacco Use Status: Never used Tobacco e-Cigarette/Vaping Use: Never Used Second Hand Smoke Exposure: Yes service: No Current occupational status: employed 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 1. Little interest or pleasure in doing things: not at all 2. Feeling down, depressed, or hopeless: not at all 3. Trouble falling or staying asleep, or sleeping too much: not at all 4. Feeling tired or having little energy: not at all 5. Poor appetite or overeating: not at all 6. Feeling bad about yourself - or that you are a failure or have let yourself or your family down: not at all 7. Trouble concentrating on things, such as reading the newspaper or watching television: not at all 8. Moving or speaking so slowly that other people could have noticed. Or the opposite - being so fidgety or restless that you have been moving around a lot more than usual: not at all 9. Thoughts that you would be better off or of hurting yourself in some way: not at all Total score: 0 Depression Screening Interpretation: Negative Depression Screening Done: Yes 14167 - PHQ-9 Billing: Yes Source: Developed by Drs. Boo Vasquez, Mariajose Gross, Alejandro Villanueva and colleagues, with an educational annie from [employer] Thrive Questionnaire Date Thrive assessed: 10/02/25 I am a: Patient What is your living situation today?: I have a steady place to live Within the past 12 months, did the food you bought not last and you didn't have the money to get more?: Never true Within the past 12 months, did you worry whether your food would run out before you got money to buy more?: Never true Do you have trouble paying for medicines?: No Do you have trouble getting transportation to medical appointments?: No Do you have trouble paying your heating and electricity bill?: No Do you have trouble taking care of your child, family member or friend?: No Do you have trouble with day-to-day activities such as bathing, preparing meals, shopping, managing finances, etc.?: No Are you currently unemployed and looking for a job?: No Are you interested in more education?: No Please select the resources that you would like help with: None Currently or been in a relationship where the following occur: No concerns reported THRIVE Score: 0 AUDIT C Alcohol Use Questionnaire (AUDIT-C) 1. How often do you have a drink containing alcohol?: Never 3. How often do you have six or more drinks on one occasion?: Never Total Score: 0 Score Reviewed/Action Taken: Yes FRANDY-7 AMB Questionnaire FRANDY-7 Date FRANDY - 7 assessed: 10/02/25 Feeling nervous, anxious, or on edge: 0 = Not at all Not being able to stop or control worryin = Not at all Worrying too much about different things: 0 = Not at all Trouble relaxin = Not at all Being so restless that it is hard to sit still: 0 = Not at all Becoming easily annoyed or irritable: 0 = Not at all Feeling afraid as if something awful might happen: 0 = Not at all Total FRANDY-7 score (0-4 normal; 5-9 mild; 10-14 moderate; 15-21 severe): 0 Source: Developed by Drs. Boo Vasquez, Mariajose Gross, Alejandro Villanueva and colleagues, with an educational annie from [employer] Review of Systems Const Denies chills, Reports fatigue, Denies fever(s) and Denies headache(s) ENT Denies dysphagia, Denies dizziness, Denies otalgia, Denies headache(s), Reports neck pain, Denies odynophagia and Denies sore throat Card Denies chest pain, Denies palpitations and Denies dyspnea Resp Details: Denies chest congestion, Denies cough and Denies dyspnea GI Denies abdominal pain, Denies constipation, Denies dysphagia, Denies heartburn, Denies diarrhea, Denies nausea, Denies odynophagia and Denies vomiting Denies difficulty voiding, Denies nocturia, Denies dysuria and Denies urinary urgency Musc Reports back pain (on and off) and Reports neck pain Skin/Breast Denies rash Neuro Denies dizziness, Denies headache(s) and Reports tremor(s) (head tremors) Psych Reports anxiety and Denies panic attacks Endo Reports fatigue and Denies palpitations Physical exam (Primary Care) Vital Signs: Last Vital Signs Pulse 76 10/02/25 09:44 BP 118/80 10/02/25 09:44 Pulse Ox 97 10/02/25 09:44 Oxygen Delivery Method Room Air 10/02/25 09:44 BMI result Body Mass Index 24.5 Tobacco/Smoking Status: Tobacco use Status Tobacco use date assessed 10/02/25 10/02/25 09:50 Patient Tobacco Use Status Never used Tobacco 10/02/25 09:50 e-Cigarette/Vaping Use Never Used 10/02/25 09:50 PHQ-9: PHQ-9 Score PHQ-9: Total score 0 10/02/25 10:47 Depression Screening Interpretation: Negative Thrive Assessment: Date of Thrive Assessment Date Thrive assessed 10/02/25 10/02/25 09:50 Currently or been in a relationship where the following occur: No concerns reported Const General: no acute distress and alert HENMT Ears: TM's normal bilaterally and EAC's normal Throat: Yes posterior oropharynx normal and Yes tonsils normal (no TP congestion noted) Neck Neck: Yes supple and No lymphadenopathy Thyroid: Thyroid normal Resp Auscultation: clear to auscultation bilaterally, no rales and no wheezes Cardio Rate: regular rate Rhythm: regular rhythm Heart sounds: no murmurs GI Palpation (GI): Soft to palpation and nontender Auscultation: normal bowel sounds General: Yes no CVA tenderness Back/Spine/Pelvis Back: no CVA tenderness Cervical Spine: Cervical spine tenderness Thoracic/Lumbar Spine: lumbar spinal tenderness Skin Rashes: no rashes Neuro Other: (+) mild tremor involving the head Extrem General: Yes no clubbing, cyanosis or edema Office Procedures Flu Questionnaire Does the patient have a severe egg allergy?: No Does the patient have severe life threatening allergies?: No Does the patient have a fever or illness today?: No Has the patient ever had Guillain-[place] Syndrome?: No Has the patient ever had any past reaction to a flu shot?: No Immunizations Fluarix [id number] (PF) 45 mcg (15 mcg x 3)/0.5 mL IM syringe Performing Provider: Eliot Irizarry MD [facility] Administered by: SHAKEEL Aburto on 10/02/25 10:51 Dose Route Admin Location Dispensed Lot Number Expiration Date NDC Physical Therapist Center Manager 0.5 mL IM Left Deltoid 0.5 mL [id number] 05/21/26 [id number] [employer] VIS Given Date VIS Provided VIS Publication Date 10/02/25 Single Vaccine 24 Eligibility Eligibility Date Funding Source Not [facility] Eligible 10/02/25 Private Results Reviewed Results Reviewed: Laboratory Tests 09/24/25 06:11 WBC 4.0 L Hgb 13.3 Hct 40.3 Plt Count 131 L Sodium 143 Potassium 4.9 Creatinine 0.84 Estimated GFR > 60 Fasting Glucose 102 H Calcium 8.9 AST 36 H ALT 49 H Triglycerides 120 Cholesterol 197 LDL Cholesterol, Calc 119 H HDL Cholesterol 54 Vitamin B12 1224 H 25-OH Vitamin D Total 40.5 TSH 2.52 Coding Level of Care Code Est Pt Level 4 (92465) Diagnoses Pure hypercholesterolemia E78.00 Gastroparesis K31.84 GERD without esophagitis K21.9 Elevated vitamin B12 level R79.89 Cervical spinal stenosis M48.02 Lumbar degenerative disc disease M51.36 Benign essential tremor G25.0 Osteopenia, unspecified location M85.80 Osteopenia location: unspecified Post traumatic stress disorder (PTSD) F43.10 Additional Codes PHQ-9 - 32517 - PHQ-9 Billing: Yes ([id number]) Assessment & Plan Assessment & Plan (1) Pure hypercholesterolemia: Code(s): E78.00 - Pure hypercholesterolemia, unspecified Category: Medical Plan: Results of her labs done last week reviewed and discussed with patient Reinforced low cholesterol diet Continue Atorvastatin 10 mg QD Will recheck her labs and fasting lipids in 6 months for follow-up (2) Gastroparesis: Code(s): K31.84 - Gastroparesis Category: Medical Plan: Continue Domperidone (Motilium) 10 mg TID with meals Patient is reminded again to eat small frequent feedings (as opposed to eating larger meals) to minimize triggering her abdominal symptoms Follow up with GI (Dr. Alis Leon) as scheduled (3) GERD without esophagitis: Code(s): K21.9 - Gastro-esophageal reflux disease without esophagitis Category: Medical Plan: Dietary restrictions reinforced Continue Carafate tablets 1 gm Q AM; she also used to take Famotidine 40 mg BID PRN but has not needed this in a while now Follow-up with GI (Dr. Alis Leon) at [facility] as scheduled (4) Elevated vitamin B12 level: Code(s): R79.89 - Other specified abnormal findings of blood chemistry Category: Medical Plan: Have advised patient that her B12 level is high again on her recent labs Patient is NOT taking any Vitamin B12 supplements Will continue monitoring her B12 level regularly and in the meantime, will send her for some additional work ups to look into this - have advised patient that these can all be done together with her routine labs in 6 months' time (5) Cervical spinal stenosis: Comment: Cervical spine MRI done in October 2019 showed (+) moderate to severe stenosis at C4-C5 and C5-C6 with slight right-sided cord deformity at C5-C6. There is no signal change in the cord at any level. Code(s): M48.02 - Spinal stenosis, cervical region Category: Medical Plan: Patient prefers to continue managing her neck symptoms conservatively at this time She was seen by neurosurgery a couple of years ago and was advised of option of cervical diskectomy and fusion but patient decided to hold off - surgery is not urgent since she has NO significant radicular or myelopathic symptoms (6) Lumbar degenerative disc disease: Code(s): M51.36 - Other intervertebral disc degeneration, lumbar region Category: Medical Plan: Reinforced activity and weight lifting restrictions Repeat lumbar spine x-rays done back in May 2022 revealed (+) multilevel degenerative spondylosis and degenerative disc disease from L1-L2 through L3-L4, with (+) lower lumbar spine facet arthritis as well. There is also (+) scoliosis of the lumbar spine to the right side Follow-up with [facility] as scheduled (7) Benign essential tremor: Code(s): G25.0 - Essential tremor Category: Medical Plan: Continue Propranolol ER 80 mg QD and Primidone 200 mg Q HS She was seeing [facility] but recently switched over to Dr. Boo Gary at [facility] and she is now scheduled to start a trial of Botox injection with Dr. Gary next week (8) Osteopenia: Comment: Repeat BMD done on 08/12/2018 showed a 5.1% decline in her total femur bone density; bone density is otherwise stable compared to her previous BMD in October 2015 Code(s): M85.80 - Other specified disorders of bone density and structure, unspecified site Category: Medical Qualifiers: Osteopenia location: unspecified Qualified Code(s): M85.80 - Other specified disorders of bone density and structure, unspecified site Plan: Continue oral Calcium and Vitamin-D supplements daily Repeat BMD done in May 2022 at [place] revealed normal BMD in the lumbar spine (T-score of 1.4) and (+) osteopenia in the hips (T-score of -1.8) Patient is encouraged to exercise regularly to help slow down her bone density decline Will continue to monitor her BMD every 2 years (9) Post traumatic stress disorder (PTSD): Code(s): F43.10 - Post-traumatic stress disorder, unspecified Category: Medical Plan: Continue Paroxetine 60 mg QD - feels that she is doing okay now on her Rx She used to take Clonazepam 0.5 mg 1/2 tablet twice a day as needed for years and was also on Quetiapine ER 50 mg Q HS more recently but is now OFF both of these Rx She was referred to [facility] in the past but patient states that she cannot afford financially to continue with her counseling as she has a co-pay of $40 per session She was started additionally on Bupropion 75 mg BID several months ago but she could not tolerate the Rx (dizziness) We also tried adding Rexulti 1 mg QD but this was denied by insurance and we ended up starting her on Quetiapine ER instead, which she is no longer taking at present Plan Per request, flu vaccine given to patient today Follow up in 6 months Orders: Orders Influenza [id number] Immunization Today Z23 - Encounter for immunization Complete Blood Count Auto Diff 6 Months D64.9 - Anemia, unspecified Comprehensive [place]. Panel Fast 6 Months E78.00 - Pure hypercholesterolemia, unspecified TSH reflex Free T4 6 Months E78.00 - Pure hypercholesterolemia, unspecified UA CC w/rflx Micro + Cult 6 Months R30.0 - Dysuria Vitamin B12 and Folate 6 Months E53.8 - Deficiency of other specified B group vitamins Homocysteine 6 Months R79.89 - Other specified abnormal findings of blood chemistry, Z86.718 - Personal history of other venous thrombosis and embolism Lipid Panel 6 Months E78.00 - Pure hypercholesterolemia, unspecified Vitamin D 25-OH Total 6 Months E55.9 - Vitamin D deficiency, unspecified Methylmalonic Acid 6 Months R79.89 - Other specified abnormal findings of blood chemistry Prothrombin Time INR 6 Months R79.89 - Other specified abnormal findings of blood chemistry Partial Thromboplastin Time 6 Months R79.89 - Other specified abnormal findings of blood chemistry Gamma Glutamyl Transpeptidase 6 Months R79.89 - Other specified abnormal findings of blood chemistry Ferritin 6 Months E83.119 - Hemochromatosis, unspecified, R79.89 - Other specified abnormal findings of blood chemistry Tryptase 6 Months R79.89 - Other specified abnormal findings of blood chemistry
--- OUTSIDE RECORDS SUMMARY | 2025-10-02 10:54 | XMS_ITS | Clinical Summary ---
Author Organization [address] Address [address] [place] [id number] Care Team Providers Care In Home Tutor Name Role Phone Eliot Irizarry MD Primary Care Provider [phone] Allergies Active Allergy Reactions Criticality Noted Date [...] complete this topic Insurance [employer] Care Teams In Home Tutor Relationship Specialty Start Date End Date Eliot Irizarry MD [address] [place] [address] Dr L[place], [place] [id number] PCP - General Internal Medicine 08/10/24
--- OUTSIDE RECORDS SUMMARY | 2025-10-02 10:54 | XMS_ITS | Encounter Summary ---
Author Organization [facility] Address [address] [place] [address] Care Team Providers Care Primary Care Nurse Name Role Phone Eliot Irizarry MD Primary Care Provider [phone] Maxwell Crouch MD Unavailable [phone] Encounter Details Date Type Department Care Team (Late st Contact Info) Description 05/22/2025 Scanned Document [facility] Department Of Neurology [address] [id number] Maxwell Crouch MD [address] [place] [address] Social History Tobacco Use Types Packs/Day Years [...] on filedocumented in this encounter Care Teams Primary Care Nurse Relationship Specialty Start Date End Date Eliot Irizarry MD [address] [place] [address] [place] [address] PCP - General 12/01/22 Maxwell Crouch MD [address] [place] [id number] Neurology 02/09/24 documented as of this encounter
--- OUTSIDE RECORDS SUMMARY | 2025-10-02 10:54 | XMS_ITS | Clinical Summary ---
Author Organization [facility] Address [address] [place] [address] Phone Care Team Providers Care Care Mgr Name Role Phone Eliot Irizarry MD Primary [...] [address] [place] [address] Alis Leon MD from Last 3 Months Surgical History Surgery Date Site/Laterality Comments HYSTERECTOMY 2014 PROCEDURE: HISTORICAL HYSTERECTOMY HERNIA REPAIR 08/2017 PROCEDURE: HISTORICAL HERNIA REPAIR/UMB KNEE ARTHROSCOPY PROCEDURE: WA ARTHROSCOPY AID TX SPINE&/FX KNEE W/O FIXJ OTHER SURGICAL HISTORY Left PROCEDURE: HISTORY OTHER; COMMENT: elbow surgery HYSTERECTOMY 2014 PROCEDURE:HYSTERECTOMY COLONOSCOPY 10/12/2024 nl ESOPHAGOGASTRODUODENOSCOPY 10/12/2024 nl, nl gastric and duodenal bx COLONOSCOPY 11/22/2013 - 11/21/2014 nl ESOPHAGOGASTRODUODENOSCOPY 12/23/2011 - 01/20/2012 nl Medical History Medical History Date Comments Mixed hyperlipidemia DX:Mixed hy perlipidemia T6 vertebral fracture (CMS/H CC V24, [facility]/HCC V28) 2014 DX:T6 vertebral fracture (HC C); COMMENT: mild, noted on CTA to r/o PE Cancer ([facility]/HCC V24, [facility] V28) DX:Cancer ([facility]);COMMENT:SKIN Basal cell carcinoma (BCC) Gastroparesis Cervical cancer ([facility]/HCC V24 , [facility] V28) Herniated disc, cervical GERD (gastroesophageal reflux [...] Maintenance Results * COLONOSCOPY Anesthesia - MAC; [facility] ENDOSCOPY (10/12/2024 10:41 AM EST) Anatomical Region Laterality Modality Endoscopy 10/12/2024 10:2 3 AM EST Impressions 10/12/2024 10:43 AM EST - The examined portion of the ileum was normal. - Internal hemorrhoids. - The entire examined colon is normal. - No specimens collected. Recommendation: - Repeat colonoscopy in 10 years for screening purposes. Narrative 10/12/2024 10:43 AM EST [facility] Patient Name: Yosvany Ritter [...] appeared normal. Procedure Code(s): --- Professional --- 26261, Colonoscopy, flexible; diagnostic, including collection of specimen(s) by brushing or washing, when performed (separate procedure) Diagnosis Code(s): --- Professional --- Z12.11, Encounter for screening for malignant neoplasm of colon CPT copyright 2020 [employer]. All rights reserved. The codes documented in this report are preliminary and upon film process operator review may be revised to meet current compliance requirements. Alis Leon MD 10/12/2024 10:42:53 AM This report has been signed electronically.Alis Leon MD Number of Addenda: 0 Note Initiated On: 10/12/2024 10:23 AM Scope In: Scope Out: Endoscopy Department at [facility] - [address] [place] [phone] Procedure Note Alis Leon MD - 10/12/2024 [facility] Patient Name: Yosvany Ritter [...] appeared normal. Procedure Code(s): --- Professional --- 72960, Colonoscopy, flexible; diagnostic, including collection of specimen(s) by brushing or washing,when performed (separate procedure) Diagnosis Code(s): --- Professional --- Z12.11, Encounter for screening for malignantneoplasm of colon CPT copyright 2020 [employer]. All rights reserved. The codes documented in this report are preliminary and upon film process operator reviewmay be revised to meet current compliance requirements. Alis Leon MD 10/12/2024 10:42:53 AM This report has been signed electronically.Alis Leon MD Number of Addenda: 0 Note Initiated On: 10/12/2024 10:23 AM Scope In: Scope Out: Endoscopy Department at [facility] - [address] [place] [id number] IMPRESSION: - The examined portion of the [...] on 11/23/2023 10:59 AM. Workstation Name - [id number] Procedure Note Josesito White MD - 07/10/2024 [...] MD on 11/23/2023 10:59AM. Workstation Name - [id number] Niki Enriquez DO IMG BI PROCEDURES Final R esult from Last 3 Months or Most Recently Relevant to Health Maintenance Insurance [facility] Care Teams Care Mgr Relationship Specialty Start Date End Date Eliot Irizarry MD [address] [place] [address] Dr Chou [address] [place] [address] PCP - General Internal Medicine 09/05/13
--- OUTSIDE RECORDS SUMMARY | 2025-10-02 10:54 | XMS_ITS | Clinical Summary ---
Author Organization [facility] Address [address] [place] [address] Care Team Providers Care Fireworks Assembly Supervisor Name Role Phone Eliot Irizarry MD Primary Care Provider [phone] Maxwell Crouch MD Unavailable [phone] Allergies Active Allergy Reactions Criticality Noted [...] Pap Smear (Ages 21-65) 1984 Mammogram 2003 RSV Vaccine 50 years and older and Patients (1 - Risk 50-74 years 1-dose series) 2013 Influenza Vaccine 06/22/2025 08/22/2022, 08/27/2020 COVID-19 Vaccine (4 - 2024-2 6 season) 2025 10/09/2023, 08/22/2022, 11/18/2021 Colonoscopy 10/12/2034 10/12/2024 Zoster (Shingles) Vaccine Completed 2019, 08/27/2020 Hepatitis B Vaccines Aged Out No long er eligible based on patient's age to complete this topic Insurance BLUE CROSS OUT OF [facility]UE CROSS OUT [facility] Care Teams Fireworks Assembly Supervisor Relationship Specialty Start Date End Date Eliot Irizarry MD [address] [place] [address] [place] [address] PCP - General 12/01/22 Maxwell Crouch MD [address] [place] [id number] Neurology 02/09/24
== END 2025-10-02 10:54 | disposition home or self-care (01) ==
LOC: HO.HMCH 09:43
PROVIDERS: PCP Internal Medicine; Visit Provider Internal Medicine
DX: E78.00 Pure hypercholesterolemia, unspecified (principal); K31.84 Gastroparesis; K21.9 Gastro-esophageal reflux disease without esophagitis; R79.89 Other specified abnormal findings of blood chemistry; M48.02 Spinal stenosis, cervical region; M51.369 Other intervertebral disc degeneration, lumbar region without mention of lumbar back pain or lower extremity pain; G25.0 Essential tremor; M85.80 Other specified disorders of bone density and structure, unspecified site; F43.10 Post-traumatic stress disorder, unspecified; Z23 Encounter for immunization

== ENCOUNTER → 2025-10-02 09:42 | Outpatient (BNVA) | payer BC, SELFPAY | PROVIDERS: PCP Internal Medicine; Visit Provider Internal Medicine | DX: Z23 Encounter for immunization (principal); E78.00 Pure hypercholesterolemia, unspecified; K31.84 Gastroparesis; K21.9 Gastro-esophageal reflux disease without esophagitis; R79.89 Other specified abnormal findings of blood chemistry; M48.02 Spinal stenosis, cervical region; M51.369 Other intervertebral disc degeneration, lumbar region without mention of lumbar back pain or lower extremity pain; G25.0 Essential tremor; M85.80 Other specified disorders of bone density and structure, unspecified site; F43.10 Post-traumatic stress disorder, unspecified | CPT/HCPCS: 90471; 90656; 96127 ==